=== PATIENT | female | born 1980 | race Caucasian/White ===

== ENCOUNTER → 2018-06-28 09:56 | Outpatient (CLI) | payer MEDICAID, SELFPAY ==
--- NOTE | 2018-06-28 10:00 | US_ITS ---
STUDY: THYROID ULTRASOUND REASON FOR EXAM: Female, 37 years old. Abnormal thyroid screen. TECHNIQUE: Ultrasound evaluation of the thyroid was performed with real-time and static guillen-scale imaging. COMPARISON: None. FINDINGS: RIGHT LOBE: The right lobe of the thyroid gland measures 5.0 x 1.6 x 1.8 cm. There is a heterogeneous echotexture. There is increased vascularity throughout the gland. LEFT LOBE: The left lobe of the thyroid gland measures 5.1 x 1.8 x 1.4 cm. There is a heterogeneous echotexture. There is increased vascularity throughout the gland. ISTHMUS: The isthmus measures 5.0 mm . US/Thyroid IMPRESSION: Enlarged, heterogenous and hypervascular gland suggestive of a history of thyroiditis. Electronically Signed: Michelle Zelaya MD at 16:57 EDT Tel , Service support ,
== END ==
PROVIDERS: Family Provider Family Medicine; PCP Family Medicine; Referring Provider Family Medicine; Visit Provider Family Medicine
DX: R79.89 Other specified abnormal findings of blood chemistry (principal)
CPT/HCPCS: 76536

== ENCOUNTER → 2018-12-10 | Outpatient (CLI) | payer MEDICAID, SELFPAY ==
--- NOTE | 2018-12-10 | IMM_PTH ---
PATIENT: ROSI PINA LOC: [facility] U#:[id number] AGE/SX: 38/F ROOM: RE12/10/[address]: Dr. Nicanor Amaral MD : 1980 BED: DIS: 12/10/2018 SPEC #: [id number] RECD: 12/11/18 12:37 STATUS: MONET REMargareth #: [id number] TAWNYA: 12/10/18 00:[address]: Nicanor Amaral DEPT: IMMUNOHISTOCHEMISTRY RECD BY: Lev Garcia ENTERED: 12/11/18 12:40 SP TYPE: IMMUNO OTHR DR: Tasneem Quevedo PA-C Tissues: Skin of back, NOS Procedures: CD34 (add) DESMIN (add) MART1 (add) Vimentin (add) Smooth Muscle Actin S-100 (add) PHYSICIAN & INSTITUTION [place] [id number] SPECIMEN INFORMATION: Tissue Source: Skin lesion, right upper back Clinical Info: Neoplasm of uncertain behavior of skin D48.5, subcutaneous cyst L72.3 Specimen Number: [id number] CPT code: 18811, 58685 x5 METHODOLOGY: Deparaffinized sections of prefer/formalin-fixed tissue or PAP/DQ stained slides are incubated with monoclonal/polyclonal antibodies/oligonucleotide probes. Localization is made via biotin free immunoperoxidase method. Appropriate controls are performed and reacted as expected. Results on target cell population are indicated in the following table: RESULTS: ANTIBODY / CLONE RESULT Actin (1A4) negative Desmin (CE-R-11) negative MART-1 (A-103) negative Vimentin (V9) positive S-100 (4C4.9) negative CD34 (QBEnd-10) negative These tests were developed and their performance characteristics determined by [facility]. They may not have been cleared or approved by the U.S. Food and Drug Administration. The FDA has determined that such clearance or approval is not necessary. INTERPRETATION: Skin lesion, right upper back biopsy: Dermal fibrins consistent with scar. SJ:monica 12/12/18
--- NOTE | 2018-12-10 09:15 | LES_PTH ---
PATIENT: ROSI PINA LOC: [facility] U#:[id number] AGE/SX: 38/F ROOM: RE12/10/[address]: Dr. Nicanor Amaral MD : 1980 BED: DIS: 12/10/2018 SPEC #: [id number] RECD: 12/10/18 10:05 STATUS: MONET DURAN #: [id number] TAWNYA: 12/10/18 09:[address]: Nicanor Amaral DEPT: SURGICAL PATHOLOGY RECD BY: Gianfranco Huerta ENTERED: 12/10/18 14:18 SP TYPE: Lesion OTHR DR: Tasneem Quevedo PA-C Tissues: Skin of back, NOS Procedures: Surgery Specimen Level IV HEADER OPERATION: Excision sebaceous cyst left upper back and skin lesion right upper back PRE-OP DIAGNOSIS: Neoplasm of uncertain behavior of skin D48.5, subcutaneous cyst L72.3 TISSUE SUBMITTED: Skin lesion, right upper back MICROSCOPIC DIAGNOSIS Skin lesion right upper back, excisional biopsy: Dermal fibrosis consistent with scar. See comment GENESIS:giorgi 12/11/18 COMMENT Change consistent with cyst are not seen. Immunohistochemistry ([id number]) supports the above diagnosis. Case has been reviewed in consultation with Dr. Andrews who concurs with the above diagnosis. IDC:AM MICROSCOPIC DESCRIPTION Slides are reviewed. GROSS DESCRIPTION Received in fixative is one container labeled with the patient's name and designated right upper back. The specimen consists of a christiansen-white skin ellipse measuring 1.3 x 0.5 cm and up to 0.5 cm in thickness. The specimen is inked, serially sectioned and submitted entirely in one cassette. /GENESIS:giorgi 12/10/18 TC: 5 CPT: 20495
[2018-12-10 09:16] VITALS: BMI 23.5
== END | disposition home or self-care (01) ==
LOC: LABSPEC 10:26
PROVIDERS: Family Provider Family Medicine; PCP Family Medicine; Referring Provider Surgery; Visit Provider Surgery
DX: L72.3 Sebaceous cyst (principal); D48.5 Neoplasm of uncertain behavior of skin
CPT/HCPCS: 88305; 88341; 88342

== ENCOUNTER → 2020-01-27 | Outpatient (CLI) | payer MEDICAID, SELFPAY ==
[2018-12-20 08:18] VITALS: BMI 23.5
--- NOTE | 2020-01-27 14:17 | US_ITS ---
STUDY: ULTRASOUND OF THE FEMALE PELVIS - COMPLETE REASON FOR EXAM: Female, 39 years old. MIDLINE AND LEFT PELVIC PAIN LMP: TECHNIQUE: Endovaginal TECHNICAL QUALITY: Adequate. COMPARISON: None. FINDINGS: The uterus is retroverted and is in a midline position. The uterus measures 9.2 x 6.2 x 4.6 cm. Normal uterine cervix. The endometrium measures 12 mm in thickness, and is heterogeneous. There is no demonstrated endometrial mass. There is no demonstrated myometrial mass. I.U.D. - The patient does not have an I.U.D. The right ovary is visualized. The right ovary measures 5.9 x 5.8 x 4.1 cm. There is a 4.9 cm right ovarian cyst. There is normal arterial and normal venous vascularity. The left ovary is visualized. The left ovary measures 3.5 x 2.7 x 2.2 cm. There is no left ovarian cyst or ovarian mass. There is no visualized left adnexal mass or complex lesion. There is normal arterial and normal venous vascularity. There is mild fluid in the cul-de-sac. The pre void volume of the bladder was 713 ml. US/Pelvic (Non ) IMPRESSION: Right ovarian cyst. Retroverted uterus with mild heterogeneous endometrium. Mild free pelvic fluid. Electronically Signed: Brannon Mckeon DO at 18:49 EDT Tel [phone], Service support ,
--- NOTE | 2020-01-27 14:17 | US_ITS ---
STUDY: ULTRASOUND OF THE FEMALE PELVIS - COMPLETE REASON FOR EXAM: Female, 39 years old. MIDLINE AND LEFT PELVIC PAIN LMP: TECHNIQUE: Endovaginal TECHNICAL QUALITY: Adequate. COMPARISON: None. FINDINGS: The uterus is retroverted and is in a midline position. The uterus measures 9.2 x 6.2 x 4.6 cm. Normal uterine cervix. The endometrium measures 12 mm in thickness, and is heterogeneous. There is no demonstrated endometrial mass. There is no demonstrated myometrial mass. I.U.D. - The patient does not have an I.U.D. The right ovary is visualized. The right ovary measures 5.9 x 5.8 x 4.1 cm. There is a 4.9 cm right ovarian cyst. There is normal arterial and normal venous vascularity. The left ovary is visualized. The left ovary measures 3.5 x 2.7 x 2.2 cm. There is no left ovarian cyst or ovarian mass. There is no visualized left adnexal mass or complex lesion. There is normal arterial and normal venous vascularity. There is mild fluid in the cul-de-sac. The pre void volume of the bladder was 713 ml. US/Transvaginal Non- IMPRESSION: Right ovarian cyst. Retroverted uterus with mild heterogeneous endometrium. Mild free pelvic fluid. Electronically Signed: Brannon Mckeon DO at 18:49 EDT Tel [phone], Service support ,
== END | disposition home or self-care (01) ==
LOC: US 14:14
PROVIDERS: PCP Family Medicine; Referring Provider Family Medicine; Visit Provider Family Medicine
DX: R10.2 Pelvic and perineal pain (principal)
CPT/HCPCS: 76830; 76856

== ENCOUNTER 2020-03-02 11:54 | Day surgery (SDC) | payer MEDICAID, SELFPAY ==
[2020-02-11 15:06] VITALS: BMI 25.1
--- NOTE | 2020-03-01 09:54 | EKG12_ITS ---
Test Reason : PRE OP Blood Pressure : / mmHG Vent. Rate : 075 BPM Atrial Rate : 075 BPM P-R Int : 158 ms QRS Dur : 082 ms QT Int : 382 ms P-R-T Axes : 071 065 060 degrees QTc Int : 426 ms Normal sinus rhythm with sinus arrhythmia Normal ECG Confirmed by JASON TRACY, SAMANTHA ([id number]), online editor YURI BOYCE ([id number]) on 03/02/2020 8:35:53 AM Referred By: Екатерина Mauro Confirmed By:SAMANTHA GOMEZ MD
[2020-03-01 11:22] LABS: Hemoglobin 13.8 g/dL (12.0-15.0); Mean Corp Hgb Conc 32.1 g/dL (32-36); Mean Corpuscular Hgb 27.4 pg (27.0-32.0); Mean Corpuscular Volume 85.3 fL (81-99); Mean Platelet Vol. 9.8 fl (6.2-12.0); Platelet Count 254 K/mm3 (150-450); RBC Distribution Width CV 12.8 % (11.6-14.6); RBC Distribution Width SD 39.8 fl (35.1-43.9); Red Blood Count 5.04 M/mm3 (4.2-5.4)
[2020-03-01 11:34] LABS: Prothrombin Time (Protime)PT. 12.5 SECONDS (11.7-14.9)
[2020-03-01 11:35] LABS: Partial Thromboplast Time 26.9 Seconds (24.1-36.2)
[2020-03-02 12:19] VITALS: BP 137/77; PULSE 87; RESP 16; TEMP 37.1; O2SAT 100; BMI 24.7
[2020-03-02] MEDS: Lactated Ringers 1,000 ML 100 ML IV ×2 (12:19→14:46)
[2020-03-02 12:22] LABS: Internal QC Validated? YES +Cl - CLEAR BKGD; Pregnancy, Urine Negative Negative
--- NOTE | 2020-03-02 12:24 | HP.PCM_ITS ---
- Problem List (1) Ovarian cyst Status: Acute History and Physical Date of Admission: 03/02/20 Intake Vital Signs 02/11/20 Height 5 ft 7 in 02/11/20 Weight: 160 lb 6 oz 02/11/20 BMI 25.1 02/11/20 BP 120/90 H Intake Visit Reasons: New: Surgical consult for cyst, ref by Saritha Quevedo Marketing Professional Required: No Is patient in pain?: No Allergies venlafaxine HCl [From Effexor] Adverse Reaction (Verified 02/11/20 15:07) throat swelling Medications Rizatriptan Benzoate [Maxalt] 10 mg PO .X1 PRN 07/07/15 [History Confirmed 02/11/20] Post menopausal: No Patient : No : No PFSH Medical History (Updated 02/11/20 @ 15:08 by Jo-Ann Shaffer) Migraines (Chronic) Constipation (Acute) Diarrhea (Acute) Anemia (Acute) Hx TIA/stroke w/o resid (Acute) Back problem (Acute) Thyroid disease (Acute) Fatigue (Acute) Normal colonoscopy (Acute) Surgical History Hx of removal of cyst (Acute) Hx of oral surgery (Acute) Hx of knee surgery (Acute) Family History Father Hypertension Prostate cancer Mother Hypertension Social History (Updated 02/11/20 @ 16:[address] Екатерина Mauro MD) Smoking Status: Never smoker second hand exposure: No alcohol intake: never substance use type: does not use caffeine: Yes what type of physical activity do you participate in: walking, running, bicycling, weight training frequency: 5-6 times per week seatbelt use: always HPI New: Surgical consult for cyst, ref by Saritha Quevedo: Details: ROSI PINA is a 39 year old who presents for referral for ovarian cyst. Had UTI symptoms and low back pain so PCP ordered ultrasound. Reports urgency and pelvic pressure. Reports one day had sharp cramping pain after exertion and was seen by PCP. Was treated for UTI multiple times before being started. Having nausea and pelvic pressure with urgency daily. ROS Const Constitutional: Denies chills or fever(s) GI GI: Reports bloating and nausea; denies vomiting : Reports frequent nightime urination, pelvic pain, urinary frequency, urinary urgency and vaginal discharge; denies vaginal dryness, vaginal odor or vaginal itching Exam Const General: cooperative, healthy appearing, comfortable, no acute distress, well developed, well groomed Nutritional Appearance: average body habitus, well nourished Orientation: alert, awake, oriented x3 [facility] Head: normal to inspection, normocephalic, atraumatic Eyes Pupils: PERRL, accommodation normal EOM: EOM intact bilaterally Resp Effort & Inspection: normal respiratory effort, able to speak in complete sentences, symmetric chest movement Cardio Rate: regular rate GI Inspection: normal to inspection, non-distended Palpation: soft, no guarding, no masses, not rigid, nontender General: bladder normal to palpation External Female Exam: normal external appearance, normal appearance of the urethra, no erythema, no tenderness externally, no lesions, No lesion of urethra Urethra: normal appearance of the urethra, no lesions Speculum Exam - Vagina: normal appearance of the vagina, normal vaginal discharge, normal vaginal discharge, not erythematous, no lacerations, no lesions, No vaginal bleeding, no masses, no swelling, nontender Speculum Exam - Cervix: normal appearance of the cervix, no cervical discharge, no lesions, no masses, nontender Bimanual Exam- Vagina & Uterus: normal bimanual exam, normal vaginal palpation, uterine size normal, bladder normal to palpation, uterine shape normal, No cervical tenderness, uterine mobility normal, uterine consistency normal, normal cervical palpation, uterus non-tender Bimanual Exam- Adnexa, other: normal adnexae, adnexae mobile, no adnexal masses, pelvic support normal, adnexae non-tender, No cul-de-sac fullness, No cul-de-sac tenderness, No cul-de-sac nodularity, apex supported Pelvic Support: normal, no cystocele, no rectocele, no enterocele, apex supported OB/External & Speculum: No vaginal bleeding Speculum Exam: no vaginal bleeding Neuro General: alert, awake, oriented x3, CN's II-XI intact bilaterally Cranial Nerves: PERRL, accommodation normal, EOM intact bilaterally Cognition: normal cognition Speech: speech normal Gait: normal gait Psych Appearance: grossly normal, well kempt Mental Status: mental status grossly normal Affect: normal affect Speech and Movement: speech and movement normal Attitude: cooperative Thought Process: normal Thought Content: normal Judgment: judgment good Assessment & Plan Problems 1. Cyst of right ovary N83.201 Plan US 01/26 showed: FINDINGS: The uterus is retroverted and is in a midline position. The uterus measures 9.2 x 6.2 x 4.6 cm. Normal uterine cervix. The endometrium measures 12 mm in thickness, and is heterogeneous. There is no demonstrated endometrial mass. There is no demonstrated myometrial mass. I.U.D. - The patient does not have an I.U.D. The right ovary is visualized. The right ovary measures 5.9 x 5.8 x 4.1 cm. There is a 4.9 cm right ovarian cyst. There is normal arterial and normal venous vascularity. The left ovary is visualized. The left ovary measures 3.5 x 2.7 x 2.2 cm. There is no left ovarian cyst or ovarian mass. There is no visualized left adnexal mass or complex lesion. There is normal arterial and normal venous vascularity. Discussed with patient that given size of the cyst and the fact that she is symptomatic, I recommend proceeding with laparoscopy for removal. Discussed that cyst is simple in appearance so I have no concern for malignancy. Recommend proceeding with laparoscopic ovarian cystectomy, possible oophorectomy. Discussed that there is always a possibility of having to remove her ovary at the time of surgery and that there is a chance of not being able to completely remove the entire cyst. Discussed if have to remove ovary, minimal effect on future fertility. The nature of the procedure was discussed with the patient. Risks, benefits, indications, and alternatives to the procedure were discussed with the patient including bleeding, infection, and visceral or vascular injury. Agreeable to blood products if medically necessary. Discussed possibility of infection inside abdomen or at incision sites which could require outpatient or inpatient antibiotics. Discussed the possibility of injury to uterus, tubes, ovaries, bowel, and bladder. Aware that this could require intra-op consult to general surgery or urology. Also aware of the possibility of prolonged hospitalization or reoperation. Discussed possibility of need to convert to open to procedure. All questions were answered. Patient voices understanding and agrees to proceed. Recommend medical clearance by PCP prior to surgery given hx of TBI. UPDATE- I have seen the patient and performed any clinically relevant updates to the history and physical exam. Екатерина Mauro MD
[2020-03-02] MEDS: Bupivacaine Mpf 0.5% 30 ML VIAL (14:01)
[2020-03-02 14:52] VITALS: BP 123/67; BP 137/77; PULSE 63; RESP 16; TEMP 36.1; O2SAT 100
[2020-03-02 15:00] VITALS: BP 106/54; BP 137/77; PULSE 67; RESP 16; O2SAT 100
--- NOTE | 2020-03-02 15:03 | OP.PCM_ITS ---
Problem List (1) Ovarian cyst Status: Acute Report of Operation Date of Procedure: 03/02/20 Pre-Operative Diagnosis: Suspected ovarian cyst, pelvic pain Post-Operative Diagnosis: No evidence of ovarian cyst, endometriosis Surgery/Procedure Performed:: Diagnostic laparoscopy, fulguration of endometriosis Description of Surgical Findings:: Normal-appearing fallopian tubes and ovaries bilaterally. Normal-appearing uterus aside from approximately 1 cm subserosal fibroid on the posterior aspect of the uterus. Endometriosis noted in the posterior cul-de-sac and bilateral ovarian fossa. Type of Anesthesia:: General Specimen's removed: None Estimated Blood Loss (mL): 10 cc Description of Procedure: The patient was taken to the operating room where general anesthesia was obtained without difficulty. She was prepped and draped in the dorsal lithotomy position with yellowfin stirrups. A weighted speculum space in the posterior aspect of the vagina and the anterior lip of the cervix was grasped with a single-tooth tenaculum. The cervix was sequentially dilated using Shai uterine dilators in order to accommodate placement of a ZClearSaleing uterine manipulator. Manipulator was placed without difficulty. A Alcaraz catheter was then placed in the bladder. All other instruments were then removed from the vagina. Gloves were changed and attention was directed to the abdominal cavity. The umbilicus was injected with 10 cc of 0.25% Marcaine. The umbilicus was then grasped with towel clamps and a 5 mm incision was made at the base of the umbilicus. A varies needle was then inserted into abdominal cavity. The abdomen was insufflated to 15 mmHg pressure. A 5 mm trocar was then introduced into the abdominal cavity under direct visualization. A 5 mm accessory ports were then placed in the right and left lower quadrants. Survey of the abdominal cavity showed the above findings. No evidence of ovarian cyst were noted on either ovary. Endometriosis implants were then noted in the posterior cul-de-sac and on the ovarian fossa bilaterally. Monopolar cautery was used to cauterize these lesions. The procedure was then deemed complete. All instruments removed from the abdominal cavity. The port sites were then closed using 4-0 Monocryl suture in a simple interrupted fashion. Dressings were placed. All instruments were then removed from the vagina. All counts were correct x2. The patient was taken to the recovery room in stable condition. - Complications None apparent - Admit VTE Documentation VTE Present on Admission: No VTE Mechan Device Prophylaxis: SCD's VTE Pharm Prophylaxis ordered?: No Multi Select Codes - Urinary/Genital Urinary/Genital CPT Codes: 93568 Laparoscopic fulguration tubes
--- NOTE | 2020-03-02 15:09 | DCINST_ITS ---
- Discharge Diagnoses Current Active Problems: Current Active and Chronic Problems (Last Updated 02/11/20 @ 15:08 by Jo-Ann Shaffer) Ovarian cyst (Acute) Reason(s) for Visit for Discharge Instructions: Diagnostic laparoscopy You will use the following diet at home:: No restrictions Discharge Activity: May not drive while taking narcotic pain medications., May Shower May resume sexual activity in: 1-2 weeks Weight Bearing Status: Weight bearing as tolerated Call your doctor if your incision/area has: Continuous Slow Oozing, Sudden Increased Bleeding, Increased Pain/ Swelling, Increased Redness, Foul Smelling Discharge, Swelling at the incision site Call your doctor if you observe: Fever of 101 or Higher, Inability to urinate, Using more than one pad per hour, Shortness of breath, Dizziness, Chest pain, Uncontrolled pain Suture Line Care: Avoid Pulling/Pushing Cleanse incision/area with: Soap & Water Allergies/Adverse Reactions: Allergies venlafaxine HCl [From Effexor] Allergy (Verified 03/02/20 12:18) throat swelling Medications to take at Discharge Rizatriptan Benzoate [Maxalt] 10 mg PO .X1 PRN PRN 07/07/15 Ferrous Sulfate [Iron] 325 mg PO DAILY 02/23/20 L.acidoph,Paracasei, B.lactis [Probiotic] 1 ea PO DAILY 02/23/20 Magnesium 250 mg PO DAILY 02/23/20 Multivitamin 1 ea PO DAILY 02/23/20 [place]-3/Dha/Epa/Fish Oil [Fish Oil 1,000 mg Softgel] 1 ea PO DAILY 02/23/20 Ibuprofen [Motrin] 600 mg PO Q6H PRN PRN #30 tab 03/02/20 Oxycodone [Oxyir] 5 mg PO Q6H PRN PRN 7 Days #10 tab 03/02/20 The following prescriptions were given: Ibuprofen [Motrin] 600 mg PO Q6H PRN PRN #30 tab PRN Reason: Pain Transmission Status: Received by [facility] Oxycodone [Oxyir] 5 mg PO Q6H PRN PRN 7 Days #10 tab PRN Reason: Pain Score 6-10/10 Transmission Status: Received by [facility] Primary Care Physician: Tasneem Quevedo PA-C [Primary Care Provider] - Test Results: Test results from this visit will be discussed in further detail at your follow- up appointment, if applicable. Please Follow Up With: Екатерина Mauro MD
[2020-03-02 15:15] VITALS: BP 117/62; BP 137/77; PULSE 57; RESP 16; O2SAT 100
[2020-03-02 15:30] VITALS: BP 115/65; BP 137/77; PULSE 54; RESP 16; TEMP 36.3; O2SAT 100
[2020-03-02] MEDS: HYDROcodone Bitartrate/Apap 5/325 Tablet PO (16:21)
[2020-03-02 17:00] VITALS: BP 118/65; BP 137/77; PULSE 63; RESP 16; TEMP 36.3; O2SAT 100
== END 2020-03-02 17:05 | disposition home or self-care (01) ==
LOC: SDC 11:55 → AC 11:55
PROVIDERS: Anesthesiology; PCP Family Medicine; Referring Provider Obstetrics & Gynecology; Visit Provider Obstetrics & Gynecology
PROC: (CPT 58661; principal; 2020-03-02 13:20)
DX: N80.0 Endometriosis of uterus (principal); D64.9 Anemia, unspecified; Z86.73 Personal history of transient ischemic attack (TIA), and cerebral infarction without residual deficits; Z87.440 Personal history of urinary (tract) infections
CPT/HCPCS: 00840; 58662; 36415; 81025; 85027; 85610; 85730; 86850; 86900; 86901; 87426; 93005; C9803; J7120; J2405

== ENCOUNTER → 2020-08-25 11:32 | Outpatient (CLI) | payer MEDICAID, SELFPAY ==
[2020-03-17 08:13] VITALS: BMI 25.1
--- NOTE | 2020-08-25 11:33 | US_ITS ---
STUDY: THYROID ULTRASOUND REASON FOR EXAM: Female, 39 years old. THYROIDITIS TECHNIQUE: Ultrasound evaluation of the thyroid was performed with real-time and static guillen-scale imaging. COMPARISON: 06/28/2018. FINDINGS: RIGHT LOBE: The right lobe of the thyroid gland measures 5.7 x 2.3 x 1.5 cm. There is a heterogeneous echotexture. 1.7 x 1.0 x 0.5 cm hypoechoic solid nodule right lower gland. LEFT LOBE: The left lobe of the thyroid gland measures 5.2 x 1.7 x 1.0 cm. There is a heterogeneous echotexture. 1.1 x 1.0 x 0.5 cm hypoechoic solid nodule lateral gland. ISTHMUS: The isthmus measures 4 mm . The regional lymph nodes are normal. US/Thyroid IMPRESSION: Heterogeneous multinodular goiter. Solid nodules are identified bilaterally measuring up to 17 mm right and 11 mm left. The right thyroid gland qualifies for tissue sampling at this has not previously been done. Electronically Signed: Robbin Garcia MD at 12:26 EDT Tel , Service support ,
== END ==
PROVIDERS: PCP Family Medicine; Referring Provider Family Medicine; Visit Provider Family Medicine
DX: E06.9 Thyroiditis, unspecified (principal)
CPT/HCPCS: 76536

== ENCOUNTER → 2020-09-15 11:31 | Outpatient (CLI) | payer MEDICAID, SELFPAY ==
[2020-03-17 08:13] VITALS: BMI 25.1
--- NOTE | 2020-09-15 | ASPIG_PTH ---
PATIENT: ROSI PINA LOC: [facility]#:[id number] AGE/SX: 44/F ROOM: RE09/15/[address]: Dr. Juvenal Carlson MD : 1980 BED: DIS: SPEC #: [id number] RECD: 09/15/20 12:28 STATUS: MONET DURAN #: [id number] TAWNYA: 09/15/20 00:[address]: Juvenal Carlson DEPT: CYTOLOGY RECD BY: Lev Garcia ENTERED: 09/15/20 12:29 SP TYPE: ASP OUT OTHR DR: Tasneem Quevedo PA-C Tissues: Thyroid gland, NOS Procedures: FNA Specimen Adequacy Special Stain Group II Surgery Specimen Level IV Cytology Other HEADER OPERATION: Ultrasound-guided fine needle aspiration of right thyroid PRE-OP DIAGNOSIS: Nodule TISSUE SUBMITTED: Right thyroid DIAGNOSIS CYTOLOGY Right thyroid nodule, ultrasound-guided FNA (smears and cell block): Consistent with chronic lymphocytic thyroiditis. Adequate for evaluation. See comment. GENESIS:amna 09/16/2020 COMMENT The specimen is evaluated at the time of FNA by Dr. Estevez. Immediate Evaluation = Predominantly lymphocytes and a few follicular cells noted. Adequate for evaluation. Correlation with clinical, radiologic findings and appropriate follow up are necessary. CYTOLOGY STUDY Slides are reviewed. CYTOLOGY GROSS Received in four passes is 0.5 ml of bloody fluid labeled with the patient's name, and designated right thyroid. Five imprints and four paps are made from the submitted fluid and the rest is added to CytoLyt for cell block preparation. Submitted for cytology study. / GENESIS:amna 09/15/2020 TC:5 CPT: 36286, 98626, 83737
--- NOTE | 2020-09-15 11:32 | US_ITS ---
PROCEDURE: ULTRASOUND GUIDED RIGHT THYROID FNA/BIOPSY. DATE: 09/15/2020. INDICATION: Female, 39 years old. Right thyroid nodule. PHYSICIAN: Albino Zheng M.D. MEDICATIONS: 2% lidocaine administered subcutaneously for local anesthesia. ACCESS SITE: Right - anterior approach. NEEDLE: 25-gauge FNA needle. SPECIMEN: Multiple FNA specimen collected and given to pathology. EBL: None. COMPLICATIONS: None immediate. PROCEDURE: The risks, benefits, and alternatives to the procedure were explained to the patient. The specific risk of hemorrhage requiring further treatment or intervention was detailed and accepted. Written informed consent was obtained. The patient was brought into the ultrasound room and placed in the supine position on the stretcher. An appropriate entry site was identified. The overlying skin was prepped and draped in the usual sterile fashion. 2% lidocaine was administered subcutaneously for local anesthesia. Under ultrasound guidance, a 25-gauge FNA needle was advanced into the lesion. Aspiration was performed and the needle was withdrawn. A total of 4 passes were performed with specimen collected and given to the pathologist who was present during the procedure. Hemostasis was achieved with manual compression. Repeat ultrasound images of the biopsy area was performed which demonstrated no gross bleeding or hematoma. An antibiotic ointment dressing was placed and the patient was given an icepack. The patient tolerated the procedure well without immediate complications. The patient was discharged in stable condition. US/FNA 1st Biopsy w/ US IMPRESSION: Successful ultrasound-guided 4 thyroid nodule FNA/biopsy, as described above. Electronically Signed: Albino Zheng MD at 12:59 EDT , Service support ,
== END ==
PROVIDERS: PCP Family Medicine; Referring Provider Otolaryngology; Visit Provider Otolaryngology
DX: E04.2 Nontoxic multinodular goiter (principal)
CPT/HCPCS: 10005; 88161; 88172; 88305; 88313

== ENCOUNTER → 2021-12-07 | Outpatient (CLI) | payer MEDICAID, SELFPAY ==
--- NOTE | 2021-12-07 15:37 | US_ITS ---
STUDY: THYROID ULTRASOUND REASON FOR EXAM: Female, 41 years old. RADHA''S TECHNIQUE: Ultrasound evaluation of the thyroid was performed with real-time and static guillen-scale imaging. COMPARISON: None. FINDINGS: RIGHT LOBE: The right lobe of the thyroid gland measures 5.7 x 2.2 x 1.8 cm. There is a diffusely heterogeneous echotexture. There is a solid nodule in the upper pole measuring 2.1 x 1.2 x 0.6 cm demonstrating irregular margins and intranodular vascularity. There is a second smaller nodule measuring 8 x 6 x 4 mm LEFT LOBE: The left lobe of the thyroid gland measures 5.1 x 1.6 x 1.2 cm. There is a diffusely heterogeneous echotexture. Small solid nodule in the upper pole with regular margins with linnea-nodular and intralobular nodular vascularity measuring approximately 1.1 x 1.3 x 0.7 cm. ISTHMUS: The isthmus measures 4 mm . The regional lymph nodes are normal. There is minimal increase in size of the nodules bilaterally since prior study US/Thyroid IMPRESSION: Heterogeneous multinodular goiter with minimal increase in size of nodules bilaterally of uncertain significance... Clinical correlation recommended Electronically Signed: Chai Vivas MD at 16:34 EDT ,
[2021-12-07 17:42] LABS: Thyroid Stim Hormone (TSH) 1.75 uIU/mL (0.358-3.74)
== END | disposition home or self-care (01) ==
LOC: US 15:17
PROVIDERS: PCP Family Medicine; Referring Provider Otolaryngology; Visit Provider Otolaryngology
DX: E06.3 Autoimmune thyroiditis (principal)
CPT/HCPCS: 36415; 76536; 84443

== ENCOUNTER → 2022-05-15 | Outpatient (CLI) | payer MEDICAID, SELFPAY ==
[2022-05-15 18:04] LABS: T4 Free Direct 1.26 ng/dL (0.76-1.46); Thyroid Stim Hormone (TSH) 0.33 uIU/mL (0.358-3.74)
== END | disposition home or self-care (01) ==
LOC: LAB 16:11
PROVIDERS: PCP Family Medicine; Visit Provider Internal Medicine Endocrinology, Diabetes & Metabolism
DX: E06.3 Autoimmune thyroiditis (principal)
CPT/HCPCS: 36415; 84439; 84443

== ENCOUNTER 2022-09-05 08:46 | Emergency (ER) | payer MEDICAID, SELFPAY ==
[2022-09-05 08:46] VITALS: BP 139/93; PULSE 87; RESP 18; TEMP 35.7; O2SAT 100; BMI 25.5
--- NOTE | 2022-09-05 09:12 | ED.VIS.GI ---
HPI HPI - GI History of Present Illness Chief Complaint: Abd Pain Informant: patient Abdominal Pain/Flank Pain Onset: Month(s) (2) Context: Gradual Onset Timing: Continuous Quality: Aching, Cramping and Dull Location: Epigastric, RUQ, LUQ and LLQ Worsened by: Food Relieved by: - (Heating pad, stretching, not eating) Nausea/Vomiting/Emesis GI Symptom: Positive for Nausea; Negative for Vomiting Diarrhea/Melena/Hematochezia GI Symptom: Positive for Diarrhea; Negative for Melena or Hematochezia Onset: Month(s) Stool Quality: Positive for Loose Narrative Narrative: Patient presents with abdominal pain that has been constant for the last 2 months but has gotten worse over the past week and a half. Patient states it is gradually gotten worse. Patient describes her pain as aching, dull, and cramping at times. Patient states her pain is over the upper abdomen and left lower abdomen. Patient states it is worse whenever she eats anything. Patient states it is better with a heating pad and with stretching. Patient admits to nausea but denies any vomiting. Patient admits to some diarrhea but denies any melena or hematochezia. Patient states her diarrhea is loose and watery. Patient admits to some urinary frequency but denies any dysuria or hematuria. [facility] Medical History Adrenal disorder Anemia Back problem Constipation Diarrhea Fatigue Christoph's thyroiditis Hx TIA/stroke w/o resid Migraines Nodular goiter Normal colonoscopy TBI (traumatic brain injury) Thyroid disease Home Medications L.acidoph, paracasei,B. lactis 10 billion cell capsule 1 ea PO DAILY supplement 02/23/20 [History Last Taken Unknown] ferrous sulfate 325 mg (65 mg iron) tablet 325 mg PO DAILY supplement 02/23/20 [History Last Taken Unknown] magnesium 250 mg tablet 250 mg PO DAILY supplement 02/23/20 [History Last Taken Unknown] multivitamin 1 ea PO DAILY supplement 02/23/20 [History Last Taken Unknown] omega 6-bfq-smp-fish oil 300 mg-1,000 mg capsule 1 ea PO DAILY supplement 02/23/20 [History Last Taken Unknown] ibuprofen 600 mg tablet 600 mg PO Q6H PRN PRN Pain #30 tabs 03/02/20 [Rx Last Taken Unknown] levothyroxine 88 mcg tablet 88 mcg PO DAILY #90 tabs 03/14/22 [Rx Last Taken Unknown] rizatriptan 10 mg tablet 5 mg PO .X1 PRN PRN Migraine Symptoms 03/14/22 [History Last Taken Unknown] omeprazole 20 mg capsule,delayed release 20 mg PO DAILY #30 CAPSULES 09/05/22 [Rx Last Taken Unknown] ondansetron 4 mg disintegrating tablet 4 mg PO Q8H PRN PRN Nausea #10 tabs 09/05/22 [Rx Last Taken Unknown] Allergy/AdvReac Type Severity Reaction Status Date / Time venlafaxine HCl Allergy throat Verified 05/03/22 08:22 [From Effexor] swelling Family History Father Hypertension Prostate cancer Mother Hypertension Other Anesthesia complication Anxiety Autoimmune disorder Depression Surgical History Hx of knee surgery Hx of oral surgery Hx of removal of cyst S/P laparoscopic procedure Social History Smoking Status: Never smoker second hand exposure: No alcohol intake: never substance use type: does not use caffeine: Yes what type of physical activity do you participate in: walking, running, bicycling and weight training frequency: 5-6 times per week seatbelt use: always ROS ROS ED Constitutional Constitutional ED: Denies chills or fever(s) Eyes Eyes: Denies blurry vision or change in vision ENT ENT ED: Denies rhinorrhea or sore throat Cardiovascular Cardiovascular: Denies chest pain or palpitations Respiratory/Chest Respiratory/Chest: Denies cough or dyspnea Gastrointestinal Gastrointestinal: Reports abdominal pain, diarrhea and nausea; Denies melena or vomiting Genitourinary Genitourinary ED: Reports urinary frequency; Denies dysuria or hematuria Musculoskeletal Musculoskeletal: Reports back pain; Denies neck pain Integumentary Denies abscess or rash Neurologic Neurologic: Reports headache(s); Denies weakness Allergic/Immunologic Allergic/Immunologic ED: Denies mouth swelling or urticaria EXAM Physical Exam Const Vital Signs: 09/05/22 08:46 Temperature 96.2 F L Temperature Source Temporal Pulse Rate 87 Respiratory Rate 18 Blood Pressure 139/93 H Blood Pressure Mean 108 Pulse Ox 100 Oxygen Delivery Method Room Air Positive well nourished and well developed General Appearance ED: well developed HEENT Reports moist mucous membranes Neck supple and no JVD Resp normal respiratory effort and clear to auscultation bilaterally Cardio regular rate, regular rhythm and no murmurs GI normal to inspection, nondistended, normoactive bowel sounds Palpation: soft and tender epigastric, LLQ, LUQ and RUQ; Negative for guarding or rebound tenderness present Back/Spine no CVA tenderness Extremity normal to inspection General Extremety ED: Negative for edema or tenderness General Extremity: Negative for edema Neuro oriented x3, CN's II-XII intact bilaterally and no sensory deficits noted Sensorium / Orientation: alert Motor Exam: strength 5/5 throughout Psych mental status grossly normal Skin no rashes or lesions noted MDM MDM MDM Narrative Medical decision making narrative: Differential diagnosis includes gastritis, peptic ulcer disease, duodenal ulcer, pancreatitis, colitis, IBS, urinary tract infection, and gastroenteritis. CBC will be obtained to assess for leukocytosis and anemia. Comprehensive metabolic profile will be obtained to assess for electrolyte abnormality, renal function, and hepatic function. Lipase will be obtained to assess for pancreatitis. Urinalysis will be obtained to assess for urinary tract infection. Serum hCG will be obtained to assess for . Lab Data Attestation: I reviewed the patient's lab results. Lab results narrative: CBC was reviewed. There is a mild anemia with a hemoglobin of 11.3 and hematocrit 36.9. Platelets were normal. White blood cell count is normal. Comprehensive metabolic profile was reviewed and was essentially within normal limits. Lipase was reviewed and was normal. Serum hCG was reviewed and was negative. Urinalysis was reviewed. There is no evidence of urinary tract infection or hematuria. Labs: Laboratory Results - last 24 hr 09/05/22 09/05/22 09/05/22 09:23 09:23 09:23 WBC 4.8 RBC 4.70 Hgb 11.3 L Hct 36.9 L MCV 78.5 L MCH 24.0 L MCHC 30.6 L RDW Std Deviation 42.5 RDW Coeff of Evaristo 14.8 H Plt Count 261 MPV 10.1 Immature Gran % (Auto) 0.200 Neut % (Auto) 70.5 H Lymph % (Auto) 18.6 L Galax % (Auto) 8.9 Eos % (Auto) 1.0 Baso % (Auto) 0.8 Absolute Neuts (auto) 3.4 Absolute Lymphs (auto) 0.90 Nucleated RBC % 0 Sodium 137 Potassium 3.3 L Chloride 104 Carbon Dioxide 25.0 Anion Gap 8 BUN 9 Creatinine 0.68 Estim Creat Clear Calc 108.01 Est GFR (MDRD) Af Amer 124 Est GFR (MDRD) Non-Af 102 BUN/Creatinine Ratio 13.3 Glucose 105 Calcium 9.2 Total Bilirubin 0.50 AST 14 L ALT 23 Alkaline Phosphatase 41 L Total Protein 7.2 Albumin 4.0 Globulin 3.2 Albumin/Globulin Ratio 1.2 Lipase 27 Serum , Qual NEGATIVE Urine Color Urine Clarity Urine pH Ur Specific [place] Urine Protein Urine Glucose (UA) Urine Ketones Urine Occult Blood Urine Nitrite Urine Bilirubin Urine Urobilinogen Ur Leukocyte Esterase Urine RBC Urine WBC Ur Squamous Epith Cells Urine Bacteria Urine Mucus 09/05/22 09:25 WBC RBC Hgb Hct MCV MCH MCHC RDW Std Deviation RDW Coeff of Evaristo Plt Count MPV Immature Gran % (Auto) Neut % (Auto) Lymph % (Auto) Galax % (Auto) Eos % (Auto) Baso % (Auto) Absolute Neuts (auto) Absolute Lymphs (auto) Nucleated RBC % Sodium Potassium Chloride Carbon Dioxide Anion Gap BUN Creatinine Estim Creat Clear Calc Est GFR (MDRD) Af Amer Est GFR (MDRD) Non-Af BUN/Creatinine Ratio Glucose Calcium Total Bilirubin AST ALT Alkaline Phosphatase Total Protein Albumin Globulin Albumin/Globulin Ratio Lipase Serum , Qual Urine Color Straw Urine Clarity Sl. Cloudy Urine pH 7.0 Ur Specific [place] 1.005 Urine Protein Negative Urine Glucose (UA) Normal Urine Ketones Negative Urine Occult Blood Negative Urine Nitrite Negative Urine Bilirubin Negative Urine Urobilinogen Normal Ur Leukocyte Esterase Negative Urine RBC 0 SEEN Urine WBC 0-5 SEEN Ur Squamous Epith Cells 0-5 SEEN Urine Bacteria 2+ Urine Mucus 0 SEEN Treatment and Re-Evaluation :: Patient was given IV fluids, Zofran, and Bentyl. Patient is feeling somewhat better on reevaluation. Patient was given prescription for Zofran and omeprazole. Patient was instructed to follow-up with her primary care physician in 5 to 7 days for further evaluation. Patient was advised she may need to see gastroenterology for further evaluation as well. Patient was instructed to start with a bland diet and advance as tolerated. Patient understood and was agreeable with the plan. All questions were answered. Discharge Plan Triage Chief Complaint: Abd Pain ED Provider: Juvenal Gardner Dx/Rx/DC Orders Clinical Impression: Abdominal pain, Christoph's thyroiditis Instructions: ED Abdominal Pain Unkn Cause Fem Prescriptions: New omeprazole [omeprazole] 20 mg capsule,delayed release(DR/EC) 20 mg PO DAILY Qty: 30 0RF ondansetron [ondansetron] 4 mg tablet,disintegrating 4 mg PO Q8H PRN PRN (Reason: Nausea) Qty: 10 0RF No Action levothyroxine 88 mcg tablet 88 mcg PO DAILY Qty: 90 3RF rizatriptan 10 mg tablet 5 mg PO .X1 PRN PRN (Reason: Migraine Symptoms) multivitamin 1 EACH tablet 1 ea PO DAILY ferrous sulfate 325 MG tablet 325 mg PO DAILY magnesium 250 MG tablet 250 mg PO DAILY omega 3-nfl-mju-fish oil 1 EACH capsule 1 ea PO DAILY L.acidoph, paracasei,B. lactis 1 EACH capsule 1 ea PO DAILY ibuprofen 600 MG tablet 600 mg PO Q6H PRN PRN (Reason: Pain) Qty: 30 0RF Primary Care Provider: Tasneem Quevedo Referrals: Tasneem Quevedo, PA-C [Primary Care Provider] - 5-7 Days Disposition Disposition: Home, Self Care
[2022-09-05 09:42] LABS: Mucous, Urine 0 SEEN /hpf (<or=2+); Red Blood Cells-Urine 0 SEEN /hpf (0-5)
[2022-09-05 09:50] LABS: Absolute Neutrophil Count 3.4 X10^3/uL (2.0-7.7); Basophil# 0.04 X10^3/uL; Basophil% 0.8 % (0-1); Eosinophil# 0.05 X10^3/uL; Hematocrit 36.9 % (37-47); Hemoglobin 11.3 g/dL (12.0-15.0); Lymphocyte % 18.6 % (19-41); Mean Corp Hgb Conc 30.6 g/dL (32-36); Mean Corpuscular Volume 78.5 fL (81-99); Mean Platelet Vol. 10.1 fl (6.2-12.0); Monocyte# 0.43 X10^3/uL; Monocyte% 8.9 % (0-10); NRBC Flagged by Analyzer 0 % (0-5); Neutrophil % 70.5 % (47-70); Platelet Count 261 K/mm3 (150-450); RBC Distribution Width CV 14.8 % (11.6-14.6); RBC Distribution Width SD 42.5 fl (35.1-43.9); White Blood Count 4.8 K/mm3 (4.4-11.0)
[2022-09-05 09:56] LABS: Color, Urine Straw (Yellow); Glucose, Dipstick Normal (Normal); Ketone-Dipstick Negative (Negative); Leukocyte Esterase-Dipstick Negative /ul (Negative); Nitrite-Dipstick Negative (Negative); Occult Blood-Urine Negative /ul (Negative); Protein-Dipstick Negative (Negative); Specific Gravity, Urine 1.005 (1.002-1.030); Urine Bilirubin Dipstick Negative (Negative); Urine Clarity Sl. Cloudy (Clear); Urine Urobilinogen Normal (Normal)
[2022-09-05] MEDS: 0.9% Normal Saline 1,000 ML 1000 ML IV (10:09)
[2022-09-05] MEDS: Ondansetron 4 MG/2 ML Vial IV (10:10)
[2022-09-05] MEDS: Dicyclomine 20 MG/2 ML Vial IM (10:10)
[2022-09-05 10:12] LABS: Internal QC Validated? YES +Cl - CLEAR BKGD; Pregnancy, Serum, hCG Quali. NEGATIVE Negative
[2022-09-05 10:13] LABS: ALB/GLOB Ratio 1.2 RATIO (0.9-2.4); AST(SGOT) 14 U/L (15-37); Alanine Aminotransfer ALT/SGPT 23 U/L (13-56); Alkaline Phosphatase 41 U/L (45-117); Anion Gap 8 (5-15); BUN 9 mg/dL (7-18); BUN/Creat Ratio 13.3 RATIO (10-20); Calcium,Total 9.2 mg/dL (8.5-10.1); Chloride 104 mmol/L (98-107); Creatinine, Serum 0.68 mg/dL (0.55-1.02); EST Glomerular Filtration Rate 102 mL/min (>60); Est Glom Filt Rate - Afr Amer 124 mL/min (>60); Estimated Creatinine Clearance 108.01 ml/min; Globulin 3.2 g/dL (2.2-4.2); Glucose 105 mg/dL (74-106); Lipase 27 U/L (13-75); Potassium 3.3 mmol/L (3.5-5.1); Protein, Total 7.2 g/dL (6.4-8.2); Sodium Level 137 mmol/L (136-145)
[2022-09-05 10:16] LABS: Squamous Epithelial Cells - UA 0-5 SEEN /hpf (5-10)
[2022-09-05 10:17] LABS: Bacteria 2+ /hpf (None Seen); White Blood Cells 0-5 SEEN /hpf (0-5)
[2022-09-05 11:08] VITALS: PULSE 63; RESP 16; O2SAT 100
== END 2022-09-05 11:08 | disposition home or self-care (01) ==
PROVIDERS: Emergency Provider Emergency Medicine; PCP Family Medicine; Visit Provider Emergency Medicine
DX: E06.3 Autoimmune thyroiditis (principal); R10.9 Unspecified abdominal pain; R35.0 Frequency of micturition; R19.7 Diarrhea, unspecified; R11.2 Nausea with vomiting, unspecified; R51.9 Headache, unspecified
CPT/HCPCS: 80053; 81001; 83690; 84703; 85025; 96361; 96372; 96374; 99283; J7030; J2405

== ENCOUNTER → 2022-09-21 | Outpatient (CLI) | payer MEDICAID, SELFPAY ==
--- NOTE | 2022-09-21 16:50 | US_ITS ---
STUDY: THYROID ULTRASOUND REASON FOR EXAM: Female, 41 years old. follow up nodule size TECHNIQUE: Ultrasound evaluation of the thyroid was performed with real-time and static guillen-scale imaging. COMPARISON: 12/07/2021 FINDINGS: RIGHT LOBE: The right lobe of the thyroid gland measures 5.9 x 1.7 x 1.7 cm. There is a heterogeneous echotexture. Nodule 1: Shrinking (16 x 6 x 12 mm from 20 x 6 x 12 mm) solid hypoechoic wider than tall ill-defined margin nodule with no echogenic foci (TR 4) in the anterior right lobe for which ultrasound-guided biopsy is recommended. Nodule 2: No change in the 7 x 4 x 5 mm solid hypoechoic wider than tall smoothly marginated nodule with no echogenic foci (TR 4) in the mid right lobe consistent with an adenoma. LEFT LOBE: The left lobe of the thyroid gland measures 5.4 x 1.5 x 1.4 cm. There is a heterogeneous echotexture. Nodule 3: No change in the 10 x 5 x 8 mm solid hypoechoic wider than tall smoothly marginated nodule with no echogenic foci (TR 4) in the anterior left lobe and follow-up ultrasound is recommended in one year. ISTHMUS: The isthmus measures 5 mm thick. . The regional lymph nodes are normal. US/Thyroid IMPRESSION: Thyroiditis with improved dominant nodule in the right lobe for which ultrasound-guided biopsy is recommended. Follow-up ultrasound is recommended in one year. Electronically Signed: Giancarlo Amaral MD at 9:30 EDT ,
== END | disposition home or self-care (01) ==
LOC: US 16:49
PROVIDERS: PCP Family Medicine; Referring Provider Internal Medicine Endocrinology, Diabetes & Metabolism; Visit Provider Internal Medicine Endocrinology, Diabetes & Metabolism
DX: E04.9 Nontoxic goiter, unspecified (principal)
CPT/HCPCS: 76536

== ENCOUNTER → 2023-02-22 | Outpatient (CLI) | payer MEDICAID, SELFPAY ==
[2023-02-22 14:01] LABS: T4 Free Direct 1.07 ng/dL (0.76-1.46); Thyroid Stim Hormone (TSH) 1.09 uIU/mL (0.358-3.74)
== END | disposition home or self-care (01) ==
LOC: LAB 13:19
PROVIDERS: PCP Family Medicine; Referring Provider Internal Medicine Endocrinology, Diabetes & Metabolism; Visit Provider Internal Medicine Endocrinology, Diabetes & Metabolism
DX: E06.3 Autoimmune thyroiditis (principal); E04.9 Nontoxic goiter, unspecified
CPT/HCPCS: 36415; 84439; 84443

== ENCOUNTER → 2023-03-01 | Outpatient (CLI) | payer MEDICAID, SELFPAY ==
--- NOTE | 2023-03-01 16:19 | US_ITS ---
STUDY: THYROID ULTRASOUND REASON FOR EXAM: Female, 42 years old. Compare nodule with us November 2021 TECHNIQUE: Ultrasound evaluation of the thyroid was performed with real-time and static guillen-scale imaging. COMPARISON: Comparison is made with prior study dated December 07, 2021 and September 21, 2022. FINDINGS: RIGHT LOBE: The right lobe of the thyroid gland is enlarged and measures 5.9 cm x 1.7 cm x 1.7 cm. There is a heterogeneous echotexture. A 1.3 cm x 1.2 cm x 0.5 cm hypoechoic solid nodule in the upper pole. Adjacent to this, there is a 6 mm x 6 mm x 4 mm hypoechoic solid nodule. There is evidence of the linnea nodular and internodular vascular territory. LEFT LOBE: The left lobe of the thyroid gland is enlarged and measures 5.5 cm x 1.6 x 1.4 cm. There is a heterogeneous echotexture. There is a 1.1 signed by 0.9 cm x 0.4 cm solid nodule in the upper pole of the thyroid. This is unchanged. ISTHMUS: The isthmus measures 4 mm. The regional lymph nodes are normal. US/Thyroid IMPRESSION: Thyromegaly. Stable appearance of the previously seen nodules in both lobes of the thyroid gland. Electronically Signed: Albino Zheng MD at 9:26 EST ,
== END | disposition home or self-care (01) ==
LOC: US 16:17
PROVIDERS: PCP Family Medicine; Referring Provider Internal Medicine Endocrinology, Diabetes & Metabolism; Visit Provider Internal Medicine Endocrinology, Diabetes & Metabolism
DX: E06.3 Autoimmune thyroiditis (principal); E04.9 Nontoxic goiter, unspecified
CPT/HCPCS: 76536

== ENCOUNTER → 2023-08-06 | Outpatient (CLI) | payer MEDICAID, SELFPAY ==
[2023-08-06 08:40] LABS: Absolute Lymphocyte Count 1.06 X10^3/uL (0.83-4.51); Absolute Neutrophil Count 5.5 X10^3/uL (2.0-7.7); Basophil# 0.04 X10^3/uL; Basophil% 0.6 % (0-1); Eosinophil# 0.15 X10^3/uL; Eosinophils% 2.1 % (0-5); Hematocrit 39.2 % (37-47); Hemoglobin 12.7 g/dL (12.0-15.0); Lymphocyte # 1.06 X10^3/ul (0.83-4.51); Lymphocyte % 14.8 % (19-41); Mean Corp Hgb Conc 32.4 g/dL (32-36); Mean Corpuscular Hgb 26.2 pg (27.0-32.0); Mean Platelet Vol. 9.7 fl (6.2-12.0); Monocyte# 0.38 X10^3/uL; Monocyte% 5.3 % (0-10); NRBC Flagged by Analyzer 0 % (0-5); Neutrophil # 5.54 X10^3/uL (2.7-7.7); Neutrophil % 77.1 % (47-70); Platelet Count 243 K/mm3 (150-450); RBC Distribution Width CV 13.7 % (11.6-14.6); RBC Distribution Width SD 40.6 fl (35.1-43.9); Red Blood Count 4.84 M/mm3 (4.2-5.4); White Blood Count 7.2 K/mm3 (4.4-11.0)
[2023-08-06 09:13] LABS: Vitamin B12 1161 pg/mL (211-911); Vitamin D,25 Hydroxy 59.8 ng/mL
[2023-08-06 09:21] LABS: ALB/GLOB Ratio 1.1 RATIO (0.9-2.4); AST(SGOT) 14 U/L (15-37); Alanine Aminotransfer ALT/SGPT 21 U/L (13-56); Albumin, Serum 3.8 g/dL (3.2-5.0); Alkaline Phosphatase 58 U/L (45-117); Anion Gap 5 (5-15); BUN 14 mg/dL (7-18); BUN/Creat Ratio 21.9 RATIO (10-20); Calcium,Total 8.7 mg/dL (8.5-10.1); Chloride 108 mmol/L (98-107); Creatinine, Serum 0.64 mg/dL (0.55-1.02); EST Glomerular Filtration Rate 109 mL/min (>60); Est Glom Filt Rate - Afr Amer 132 mL/min (>60); Free T3 2.4 pg/mL (2.18-3.98); Globulin 3.5 g/dL (2.2-4.2); Glucose 97 mg/dL (74-106); Iron 42 ug/dL (50-170); Iron Binding Capacity,Total 322 ug/dL (250-450); Potassium 3.5 mmol/L (3.5-5.1); Protein, Total 7.3 g/dL (6.4-8.2); Sodium Level 140 mmol/L (136-145); T4 Free Direct 1.11 ng/dL (0.76-1.46); Thyroid Stim Hormone (TSH) 1.77 uIU/mL (0.358-3.74)
[2023-08-07 17:12] LABS: Thyroglobulin Antibody 2.7 IU/mL (0.0-0.9)
== END | disposition home or self-care (01) ==
LOC: LAB.FUTURE 08:01 → LAB 08:03
PROVIDERS: PCP Family Medicine; Referring Provider Internal Medicine Endocrinology, Diabetes & Metabolism; Visit Provider Family Medicine
DX: R53.82 Chronic fatigue, unspecified (principal); R76.8 Other specified abnormal immunological findings in serum
CPT/HCPCS: 36415; 80053; 82306; 82607; 83540; 83550; 84439; 84443; 84481; 85025; 86800

== ENCOUNTER 2024-01-28 11:39 | Emergency (ER) | payer MEDICAID, SELFPAY ==
[2024-01-28 11:40] VITALS: BP 154/91; PULSE 83; RESP 16; TEMP 35.8; O2SAT 100; BMI 25.2
--- NOTE | 2024-01-28 12:56 | ED.VIS.BACK ---
HPI History of Present Illness Chief Complaint: Back Informant: patient Narrative Narrative: Healthy 43-year-old female states she started having pain in her low back about a week ago coinciding with sleeping on an uncomfortable mattress icon that she was staying at in [place]. Pain has become worse, it is worse with certain positions and better with others, and she started having tingling in her right flores into the top of her right foot as well as some weakness that she noticed when she was going up and down stairs feeling like her leg was going to give out. The pain also radiates into her left lateral gluteus area but without neurologic symptoms in her left lower extremity or bowel or bladder dysfunction or saddle anesthesia. She thinks she may have had a ruptured or bulging disc a few years ago, she did not have an MRI but she was treated with physical therapy and it got better and went away. Prior similar symptoms: Yes and With Prior Back Pain PFSH PFS Medical History Nodular goiter Christoph's thyroiditis TBI (traumatic brain injury) Adrenal disorder Migraines Normal colonoscopy Constipation Diarrhea Anemia Hx TIA/stroke w/o resid Back problem Thyroid disease Fatigue Home Medications ?Medication ?Instructions ?Recorded ?Last Taken ?Type L.acidoph, paracasei,B. lactis 10 1 ea PO DAILY supplement 02/23/20 Unknown History billion cell capsule ferrous sulfate 325 mg (65 mg 325 mg PO DAILY supplement 02/23/20 Unknown History iron) tablet magnesium 250 mg tablet 250 mg PO DAILY supplement 02/23/20 Unknown History multivitamin 1 ea PO DAILY supplement 02/23/20 Unknown History omega 0-akn-yju-fish oil 300 1 ea PO DAILY supplement 02/23/20 Unknown History mg-1,000 mg capsule ibuprofen 600 mg tablet 600 mg PO Q6H PRN PRN Pain #30 tabs 03/02/20 Unknown Rx rizatriptan 10 mg tablet 5 mg PO .X1 PRN PRN Migraine 03/14/22 Unknown History Symptoms omeprazole 20 mg capsule,delayed 20 mg PO DAILY #30 CAPSULES 09/05/22 Unknown Rx release ondansetron 4 mg disintegrating 4 mg PO Q8H PRN PRN Nausea #10 tabs 09/05/22 Unknown Rx tablet levothyroxine 88 mcg tablet 88 mcg PO DAILY #90 tabs 02/26/23 Unknown Rx hydrocodone-acetaminophen 5-325mg 1 tab PO Q6H PRN PRN Pain 3 days 01/28/24 Unknown Rx 5mg-325mg #12 TABLETS Allergy/AdvReac Type Severity Reaction Status Date / Time venlafaxine HCl (From Allergy throat Verified 01/28/24 11:40 Effexor) swelling Family History Father Hypertension Prostate cancer Mother Hypertension Other Anesthesia complication Anxiety Autoimmune disorder Depression Surgical History Hx of knee surgery Hx of oral surgery Hx of removal of cyst S/P laparoscopic procedure Social History Smoking Status: Never smoker second hand exposure: No alcohol intake: current alcohol intake frequency: a few times a month Alcohol type: wine substance use type: does not use caffeine: Yes what type of physical activity do you participate in: walking, running, bicycling and weight training frequency: 5-6 times per week seatbelt use: always ROS ROS ED Constitutional Constitutional ED: Denies chills or fever(s) Gastrointestinal Gastrointestinal: Denies abdominal pain, constipation, fecal incontinence, nausea or vomiting Genitourinary Genitourinary ED: Reports other Details: no urinary retention ; Denies abdominal discomfort or urinary incontinence Musculoskeletal Musculoskeletal: Reports as per HPI and back pain; Denies neck pain Integumentary Denies rash or wounds Neurologic Neurologic: Reports paresthesias RLE and weakness; Denies headache(s) EXAM Physical Exam Const Vital Signs: 01/28/24 11:40 Temperature 96.5 F L Temperature Source Temporal Pulse Rate 83 Respiratory Rate 16 Blood Pressure 154/91 H Blood Pressure Mean 112 Pulse Ox 100 Oxygen Delivery Method Room Air Positive well nourished and well developed General Appearance ED: well developed and NAD HEENT Negative for trauma or tenderness Eyes PERRL and EOMs intact bilaterally Neck full ROM and supple GI normal to inspection, nondistended, normoactive bowel sounds, soft to palpation and non-tender Back/Spine normal to inspection General Back: Negative for CVA tenderness Lumbar Spine / Lower Back: ROM limited, paraspinal muscle tenderness right (Sciatic notch area) and straight leg raise negative bilaterally; Negative for lumbar spinal tenderness Extremity normal to inspection, full ROM and no pedal edema Neuro oriented x3 and no sensory deficits noted Sensorium / Orientation: alert Motor Exam: strength 5/5 throughout and clonus absent Deep Tendon Reflexes: Rt Patellar (L4): 1+, Lt Patellar (L4): 2+, Rt Ankle (S1): 1+ and Lt Ankle (S1): 2+ Deep Tendon Reflexes Back: Rt Patellar (L4): 1+, Lt Patellar (L4): 2+, Rt Ankle (S1): 1+ and Lt Ankle (S1): 2+ Plantar Reflex: Downgoing: bilateral Psych mental status grossly normal and thought process normal Skin no rashes or lesions noted and no wounds MDM MDM MDM Narrative Medical decision making narrative: I did a detailed neurologic exam. As documented above each muscle group was symmetric and strong subjectively and objectively, but she has diminished reflexes on the right compared with the left. She does walk normally here in the emergency department. I discussed this with Dr. Padgett, he understands and advises supportive care and outpatient therapy. We both agree that this may be consistent with a radiculopathy but no emergent surgery indicated at this time or emergent MRI. I reviewed her outpatient paperwork showing the medication she was treated with when she was seen at an [facility] for this. She was given an injection of Decadron 10 mg in addition to Toradol, and prescribed a 6-day taper of prednisone on top of that. She is already completed 4 days of the taper. Although I do not think double dipping on steroid oral anti-inflammatories is indicated or going to be helpful, at this point since she has already completed most of the taper I would finish it off to avoid adrenal insufficiency. She was also prescribed a muscle relaxer, I advised her if she does not feel like it is helping to avoid that, and she is on meloxicam which she can continue taking. I am going to prescribe her some hydrocodone and give her a dose of morphine here she has a ride home. Discharge Plan Triage Chief Complaint: Back ED Provider: Jonn Nash Dx/Rx/DC Orders Clinical Impression: Lumbar back pain with radiculopathy affecting right lower extremity Instructions: ED Sciatica Prescriptions: New hydrocodone-acetaminophen 5-325 mg tablet 1 tab PO Q6H PRN PRN (Reason: Pain) 3 Days Qty: 12 0RF No Action levothyroxine 88 mcg tablet 88 mcg PO DAILY Qty: 90 3RF rizatriptan 10 mg tablet 5 mg PO .X1 PRN PRN (Reason: Migraine Symptoms) multivitamin 1 EACH tablet 1 ea PO DAILY ferrous sulfate 325 MG tablet 325 mg PO DAILY magnesium 250 MG tablet 250 mg PO DAILY omega 2-evq-uzv-fish oil 1 EACH capsule 1 ea PO DAILY L.acidoph, paracasei,B. lactis 1 EACH capsule 1 ea PO DAILY ibuprofen 600 MG tablet 600 mg PO Q6H PRN PRN (Reason: Pain) Qty: 30 0RF omeprazole [omeprazole] 20 mg capsule,delayed release(DR/EC) 20 mg PO DAILY Qty: 30 0RF ondansetron [ondansetron] 4 mg tablet,disintegrating 4 mg PO Q8H PRN PRN (Reason: Nausea) Qty: 10 0RF Primary Care Provider: Tasneem Quevedo Referrals: Chai Padgett DO [Med Staff - Active Staff] - (call for appt (if they do not call you 1st)) Tasneem Quevedo PA-C [Primary Care Provider] - Print Language: Citizen Of [place] Disposition Disposition: Home, Self Care
[2024-01-28] MEDS: Morphine 4 MG/ML Syringe IM (13:19)
[2024-01-28] MEDS: Ondansetron ODT 4 MG Tablet 8 MG PO (13:19)
[2024-01-28 13:43] VITALS: BP 142/86; PULSE 81; RESP 16; TEMP 36.6; O2SAT 99
== END 2024-01-28 13:44 | disposition home or self-care (01) ==
PROVIDERS: Emergency Provider Emergency Medicine; PCP Family Medicine; Visit Provider Emergency Medicine
DX: M54.16 Radiculopathy, lumbar region (principal)
CPT/HCPCS: 96372; 99282

== ENCOUNTER → 2024-03-21 | Outpatient (CLI) | payer MEDICAID, SELFPAY ==
[2024-03-21 12:06] LABS: Hemoglobin 11.8 g/dL (12.0-15.0); Mean Corp Hgb Conc 31.9 g/dL (32-36); Mean Corpuscular Hgb 25.5 pg (27.0-32.0); Mean Corpuscular Volume 80.1 fL (81-99); Mean Platelet Vol. 9.4 fl (6.2-12.0); Platelet Count 257 K/mm3 (150-450); RBC Distribution Width CV 14.8 % (11.6-14.6); RBC Distribution Width SD 43.2 fl (35.1-43.9); Red Blood Count 4.62 M/mm3 (4.2-5.4); White Blood Count 6.3 K/mm3 (4.4-11.0)
[2024-03-21 13:09] LABS: ALB/GLOB Ratio 1.3 RATIO (0.9-2.4); AST(SGOT) 13 U/L (15-37); Alanine Aminotransfer ALT/SGPT 26 U/L (13-56); Albumin, Serum 3.9 g/dL (3.2-5.0); Alkaline Phosphatase 54 U/L (45-117); Anion Gap 9 (5-15); BUN 12 mg/dL (7-18); BUN/Creat Ratio 17.7 RATIO (10-20); Calcium,Total 8.8 mg/dL (8.5-10.1); Chloride 105 mmol/L (98-107); Creatinine, Serum 0.68 mg/dL (0.55-1.02); EST Glomerular Filtration Rate 102 mL/min (>60); Est Glom Filt Rate - Afr Amer 123 mL/min (>60); Free T3 2.7 pg/mL (2.18-3.98); Globulin 2.9 g/dL (2.2-4.2); Glucose 96 mg/dL (74-106); Iron 41 ug/dL (50-170); Iron Binding Capacity,Total 383 ug/dL (250-450); PERCENT IRON SATURATION 10.7 % (15.0-55.0); Potassium 3.8 mmol/L (3.5-5.1); Protein, Total 6.8 g/dL (6.4-8.2); Sodium Level 136 mmol/L (136-145); Thyroid Stim Hormone (TSH) 0.315 uIU/mL (0.358-3.740)
[2024-03-21 13:45] LABS: Vitamin B12 901 pg/mL (211-911); Vitamin D,25 Hydroxy 49.8 ng/mL
[2024-04-12 03:07] LABS: Anti-Thyroglobulin AB 3.5 IU/mL (0.0-0.9); Thyroglobulin RIA 114 ng/mL (.)
== END | disposition home or self-care (01) ==
PROVIDERS: PCP Family Medicine; Referring Provider Family Medicine; Visit Provider Family Medicine
DX: R76.8 Other specified abnormal immunological findings in serum (principal); R53.82 Chronic fatigue, unspecified
CPT/HCPCS: 36415; 80053; 82306; 82607; 83540; 83550; 84432; 84439; 84443; 84481; 85027; 86800

== ENCOUNTER → 2024-05-26 | Outpatient (CLI) | payer MEDICAID, SELFPAY | END | disposition home or self-care (01) | LOC: LABSPEC 14:56 | PROVIDERS: PCP Family Medicine; Visit Provider Family Medicine | DX: R39.15 Urgency of urination (principal) | CPT/HCPCS: 87086; 87088 ==

== ENCOUNTER → 2024-06-13 | Outpatient (CLI) | payer MEDICAID, SELFPAY ==
--- NOTE | 2024-06-13 14:29 | BI_ITS ---
PROCEDURE: DIAG MAMM W/CAD, BILAT; BREAST LIMITED UNILATERAL; BILAT BRST [place] STAND ALONE REASON FOR EXAM: 43-year-old female presents with palpable concern in the left breast. No family history of breast cancer. TECHNIQUE: Bilateral diagnostic digital breast tomosynthesis with 2D and 3D images. Computer aided detection. Also, targeted bilateral breast ultrasound was performed. COMPARISON: 12/12/2016 FINDINGS: MAMMOGRAM: There are scattered areas of fibroglandular density. There is a triangle skin marker indicating the area of palpable concern in the upper-outer left breast. Underlying the skin marker is an obscured mass. There is an asymmetry in the superior right breast at posterior depth. Also there is an asymmetry in the central right breast at posterior depth. These asymmetries partially efface with the spot compression views and may represent benign overlapping fibroglandular tissues. LEFT BREAST ULTRASOUND: Targeted left breast ultrasound performed of the area of palpable concern at 2 o'clock 4 cm from the nipple demonstrates 3 adjacent cysts, the largest measures 1.1 x 1.1 x 1.1 cm. Otherwise, there are no suspicious findings in the left breast. RIGHT BREAST ULTRASOUND: Targeted right breast ultrasound performed of the superior right breast demonstrates no definite sonographic correlate for the mammographic findings seen in the superior and central right breast at posterior depth. Otherwise there are 2 normal-appearing lymph nodes visualized at 9 o'clock 8 cm from the nipple measuring 1.1 x 1.2 x 0.4 cm and another lymph node at 10 o'clock 5 cm from the nipple measuring 1.0 x 1.2 x 0.3 cm. BI/Bilat Brst [place] Stand Alone IMPRESSION: The patient's palpable area of concern in the left breast corresponds to benign cysts. Otherwise, there are no suspicious findings in the left breast. The asymmetries in the superior and central right breast at posterior depth wit hout sonographic correlates are probably benign. Recommend short interval six-month follow-up diagnostic mammogram of the right breast for further evaluation. BI-RADS 3: PROBABLY BENIGN. Follow-up code: 6 Month Follow-up Reading Location: [id number]
== END | disposition home or self-care (01) ==
LOC: OPBI 14:25
PROVIDERS: PCP Family Medicine; Referring Provider Family Medicine; Visit Provider Family Medicine
DX: N63.21 Unspecified lump in the left breast, upper outer quadrant (principal)
CPT/HCPCS: 77062; 76642; 77066; G0279

== ENCOUNTER → 2024-07-14 | Outpatient (CLI) | payer MEDICAID, SELFPAY ==
[2024-07-14 15:13] LABS: Ferritin 31 ng/mL (22-378)
== END | disposition home or self-care (01) ==
LOC: LAB 13:22
PROVIDERS: PCP Family Medicine; Referring Provider Internal Medicine Endocrinology, Diabetes & Metabolism; Visit Provider Internal Medicine Endocrinology, Diabetes & Metabolism
DX: E06.3 Autoimmune thyroiditis (principal)
CPT/HCPCS: 36415; 82728; 84439; 84443

== ENCOUNTER 2024-07-16 10:30 | Outpatient (RCR) | payer MEDICAID, SELFPAY ==
--- NOTE | 2024-05-19 16:40 | HP.PTEVAL_ITS ---
Patient's Visit Information Visit Information Visit Information: ROSI PINA is a 43 year old F referred to Physical Therapy by Tasneem Quevedo PA-C with a diagnosis of BACK PAIN. Date of Evaluation: 05/19/24 Physical Therapist: Edgar Garcia, PT, Cert MDT, OCS Visit Plan Frequency: 2x /Week Duration: 4 Weeks Plan: PT INTERVENTIONS INITIALLY HILDA EX'S , PROGRESS DLS ,POSTURAL EX'S , POSTURE/BODY MECHANICS ,,ACTIVITY MODIFICATION AND MODALITIES Subjective Subjective: This 43 y/o female presents to physical therapy with back pain with radicular symptoms. Patient developed back pain Jan 2024 driving noticed ache next day developed only right leg symptoms radiating lateral leg. Patient went to Urgent Care with pain injection and prednisone . Patient pain persisted then went to [facility] morphine interjections.Medication ibuprofen. Pain persisted until Mar but show consistent improvement . Aggravating bending ,sitting ,lifting . Alleviating factors walking and standing. Coughing/sneezing-. Bowel/bladder-. Patient pain affects sleeping, Patient initially had paresthesia/tingling but better. Patient had h/o 2021 . Patient had MRI showed HNP lumbar. Patient sees chiropractor. Patient condition affects QOL and function /ADLS and job demands .Patient goals to decrease pain SOCAIL: single HOBBIES: hike VOCATION: unemployed Pain Bilateral Back: Pain Intensity (Out of 10): 3 Pain Intensity Range: 10 Objective Objective: POSTURE: WFL ,decrease lordosis PALAPTION: unremarkable NEURO: denies paresthesia/tingling ,reflexes L3-4,L4-5,L5-S1 2/3 GAIT: reciprocal pattern LUMBAR ROM: flexion mod loss pain .side glides min loss pain,extension mod loss pain MMT: quads/hams 4/5 ,hip flexion 4/5 ,ankle 4/5 Special Tests L/S Slump test left side: Negative L/S Slump test right side: Positive L/S Left Straight Leg Raise: Negative L/S Right Straight Leg Raise: Positive Lumbar Standing: Flexion - Mechanical Response: No effect Lumbar Standing: Flexion - Symptoms During Testing: Increases Lumbar Standing: Flexion - Symptoms After Testing: Worse Lumbar Standing: Extension - Mechanical Response: No effect Lumbar Standing: Extension - Symptoms During Testing: Decreases Lumbar Standing: Extension - Symptoms After Testing: Better Lumbar Standing: Right Side Glides - Mechanical Response: No effect Lumbar Standing: Right Side [place] - Symptoms During Testing: No effect Lumbar Standing: Right Side [place] - Symptoms After Testing: No effect Lumbar Standing: Left Side [place] - Mechanical Response: No effect Lumbar Standing: Left Side [place] - Symptoms During Testing: No effect Lumbar Standing: Left Side [place] - Symptoms After Testing: No effect Lumbar Lying: Flexion - Mechanical Response: No effect Lumbar Lying: Flexion - Symptoms During Testing: Increases Lumbar Lying: Flexion - Symptoms After Testing: No worse Lumbar Lying: Extension - Mechanical Response: No effect Lumbar Lying: Extension - Symptoms During Testing: Decreases Lumbar Lying: Extension - Symptoms After Testing: Better Balance/Special Test Scores Oswestry Low Back Score: 18 Goals Goal 1:: Patient to be I with HEP for back Goal Time Frame: 4-6 Weeks Goal 2:: Patient to improve lumbar ROM for function of recovery for ADLS and putting on shoes Goal Time Frame: 4-6 Weeks Goal 3:: Patient to improve back oswestry score by 5 point to improve QOL and function Goal Time Frame: 4-6 Weeks Goal 4:: Patient to demonstrate 50% improvement with less pain and improve function Goal Time Frame: 4-6 Weeks Goal 5:: Patient be able to manage symptoms with correct posture and body mechanics 90% Goal Time Frame: 4-6 Weeks Rehabilitation Potential Physical Therapy Diagnosis: 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 with pain worse with flexion better with extension and walking increases positioning and motion testing thus benefit from skilled PT Rehabilitation Potential: Good Anticipated Interventions Patient/Client Instruction: Educate patient on: Condition and Plan of Care For the Purpose of:: To decrease pain, To increase ROM, To improve muscle performance and motor function, To improve ability to perform ADL's, To increase tolerance to activity/condition/position, To improve ability of physical actions for home/community/work/leisure, To improve health of tissue, To decrease soft tissue restriction and To increase flexibility/ROM Therapeutic Exercise to Include: Strength training, Postural training, Flexibilty training, Dynamic Lumbar Stabilization and Hilda Exercises For the Purpose of:: To decrease pain, To increase ROM, To improve muscle performance and motor function, To increase tolerance to activity/condition/position, To improve ability of physical actions for home/community/work/leisure, To improve health of tissue, To decrease soft tissue restriction and To increase flexibility/ROM TENS: Yes IF ES: Yes Cryotherapy (ice pack, ice massage): Yes Thermo therapy (hot pack): Yes Ultrasound (thermal/non thermal): Yes For the Purpose of:: To decrease pain, To increase ROM, To improve nutrient delivery to tissue, To increase oxygenation perfusion, To improve health of tissue and To decrease soft tissue restriction Text: Thank you for the opportunity to evaluate your patient. For Medicare and Medicare HMO plans, please review the plan of care and approve it. It will need to be FAXED BACK to us at [phone] for Medicare purposes. For Medicare only, by signing this I certify the plan of care. Please let me know if there are questions or concerns regarding this plan of care. Physician Signature: Date:
--- NOTE | 2024-07-16 11:05 | HP.PTEVAL_ITS ---
Patient's Visit Information Visit Information Visit Information: ROSI PINA is a 43 year old F referred to Physical Therapy by Tasneem Quevedo PA-C with a diagnosis of BACK PAIN. Date of Evaluation: 05/19/24 Physical Therapist: Zac Causey, PT, ATC Visit Plan Frequency: 2x /Week Duration: 4 Weeks Plan: 07/16/24- Cont with POC x 3 visits PT INTERVENTIONS INITIALLY HILDA EX'S, PROGRESS DLS ,POSTURAL EX'S , POSTURE/BODY MECHANICS, ACTIVITY MODIFICATION AND MODALITIES Subjective Subjective: This 43 y/o female presents to physical therapy with back pain with radicular symptoms. Patient developed back pain Jan 2024 driving noticed ache next day developed only right leg symptoms radiating lateral leg. Patient went to Urgent Care with pain injection and prednisone . Patient pain persisted then went to [facility] morphine interjections.Medication ibuprofen. Pain persisted until Mar but show consistent improvement . Aggravating bending ,sitting ,lifting . Alleviating factors walking and standing. Coughing/sneezing-. Bowel/bladder-. Patient pain affects sleeping, Patient initially had paresthesia/tingling but better. Patient had h/o 2021 . Patient had MRI showed HNP lumbar. Patient sees chiropractor. Patient condition affects QOL and function /ADLS and job demands .Patient goals to decrease pain SOCAIL: single HOBBIES: hike VOCATION: unemployed Pain Bilateral Back: Pain Intensity (Out of 10): 3 Pain Intensity Range: 10 Objective Objective: POSTURE: WFL ,decrease lordosis PALAPTION: unremarkable NEURO: denies paresthesia/tingling ,reflexes L3-4,L4-5,L5-S1 2/3 GAIT: reciprocal pattern LUMBAR ROM: flexion mod loss pain .side glides min loss pain,extension mod loss pain MMT: quads/hams 4/5 ,hip flexion 4/5 ,ankle 4/5 Special Tests L/S Slump test left side: Negative L/S Slump test right side: Positive L/S Left Straight Leg Raise: Negative L/S Right Straight Leg Raise: Positive Lumbar Standing: Flexion - Mechanical Response: No effect Lumbar Standing: Flexion - Symptoms During Testing: Increases Lumbar Standing: Flexion - Symptoms After Testing: Worse Lumbar Standing: Extension - Mechanical Response: No effect Lumbar Standing: Extension - Symptoms During Testing: Decreases Lumbar Standing: Extension - Symptoms After Testing: Better Lumbar Standing: Right Side Glides - Mechanical Response: No effect Lumbar Standing: Right Side [place] - Symptoms During Testing: No effect Lumbar Standing: Right Side [place] - Symptoms After Testing: No effect Lumbar Standing: Left Side [place] - Mechanical Response: No effect Lumbar Standing: Left Side [place] - Symptoms During Testing: No effect Lumbar Standing: Left Side [place] - Symptoms After Testing: No effect Lumbar Lying: Flexion - Mechanical Response: No effect Lumbar Lying: Flexion - Symptoms During Testing: Increases Lumbar Lying: Flexion - Symptoms After Testing: No worse Lumbar Lying: Extension - Mechanical Response: No effect Lumbar Lying: Extension - Symptoms During Testing: Decreases Lumbar Lying: Extension - Symptoms After Testing: Better Balance/Special Test Scores Oswestry Low Back Score: 13 Goals Goal 1:: Patient to be I with HEP for back Goal Time Frame: 4-6 Weeks Goal 2:: Patient to improve lumbar ROM for function of recovery for ADLS and putting on shoes Goal Time Frame: 4-6 Weeks Goal 3:: Patient to improve back oswestry score by 5 point to improve QOL and function Goal Time Frame: 4-6 Weeks Goal 4:: Patient to demonstrate 50% improvement with less pain and improve function Goal Time Frame: 4-6 Weeks Goal 5:: Patient be able to manage symptoms with correct posture and body mechanics 90% Goal Time Frame: 4-6 Weeks Rehabilitation Potential Physical Therapy Diagnosis: 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 with pain worse with flexion better with extension and walking increases positioning and motion testing thus benefit from skilled PT Rehabilitation Potential: Good Anticipated Interventions Patient/Client Instruction: Educate patient on: Condition and Plan of Care For the Purpose of:: To decrease pain, To increase ROM, To improve muscle performance and motor function, To improve ability to perform ADL's, To increase tolerance to activity/condition/position, To improve ability of physical actions for home/community/work/leisure, To improve health of tissue, To decrease soft tissue restriction and To increase flexibility/ROM Therapeutic Exercise to Include: Strength training, Postural training, Flexibilty training, Dynamic Lumbar Stabilization and Hilda Exercises For the Purpose of:: To decrease pain, To increase ROM, To improve muscle performance and motor function, To increase tolerance to activity/condition/position, To improve ability of physical actions for jonathan e/community/work/leisure, To improve health of tissue, To decrease soft tissue restriction and To increase flexibility/ROM TENS: Yes IF ES: Yes Cryotherapy (ice pack, ice massage): Yes Thermo therapy (hot pack): Yes Ultrasound (thermal/non thermal): Yes For the Purpose of:: To decrease pain, To increase ROM, To improve nutrient delivery to tissue, To increase oxygenation perfusion, To improve health of tissue and To decrease soft tissue restriction Text: Thank you for the opportunity to evaluate your patient. For Medicare and Medicare HMO plans, please review the plan of care and approve it. It will need to be FAXED BACK to us at [phone] for Medicare purposes. For Medicare only, by signing this I certify the plan of care. Please let me know if there are questions or concerns regarding this plan of care. Physician Signature: Date:
--- NOTE | 2024-07-16 12:01 | HP.PTREVAL ---
Re-Evaluation Intro: Tasneem Quevedo PA-C, It has been my pleasure to treat ROSI PINA over the last 10 visits for BACK PAIN. Please see the progress note below for an update on the physical therapy plan of care! Subjective Subjective: I am not really any better, but I am not worse Objective Objective/Function: LBP ranges from 3-6/10 Pt reports no R LE radiculopathy today, but reports she had it over the weekend Pt is I with HEP Pt is moderately to severely limited with L/S extension ROM at this time. Plan Plan Plan: 07/16/24- Cont with POC x 3 visits PT INTERVENTIONS INITIALLY HILDA EX'S, PROGRESS DLS ,POSTURAL EX'S , POSTURE/BODY MECHANICS, ACTIVITY MODIFICATION AND MODALITIES Balance/Gait/Functional tests Balance/Special Test Scores Oswestry Low Back Score: 13 Goals Goals Goal 1:: Patient to be I with HEP for back Goal Time Frame: 4-6 Weeks Goal Progress: Goal Met Goal 2:: Patient to improve lumbar ROM for function of recovery for ADLS and putting on shoes Goal Time Frame: 4-6 Weeks Goal Progress: Progressing Goal 3:: Patient to improve back oswestry score by 5 point to improve QOL and function Goal Time Frame: 4-6 Weeks Goal 4:: Patient to demonstrate 50% improvement with less pain and improve function Goal Time Frame: 4-6 Weeks Goal Progress: Progressing Goal 5:: Patient be able to manage symptoms with correct posture and body mechanics 90% Goal Time Frame: 4-6 Weeks Goal Progress: Progressing Anticipated Interventions Anticipated Interventions Patient/Client Instruction: Educate patient on: Condition and Plan of Care For the Purpose of:: To decrease pain, To increase ROM, To improve muscle performance and motor function, To improve ability to perform ADL's, To increase tolerance to activity/condition/position, To improve ability of physical actions for home/community/work/leisure, To improve health of tissue, To decrease soft tissue restriction and To increase flexibility/ROM Therapeutic Exercise to Include: Strength training, Postural training, Flexibilty training, Dynamic Lumbar Stabilization and Hilda Exercises For the Purpose of:: To decrease pain, To increase ROM, To improve muscle performance and motor function, To increase tolerance to activity/condition/position, To improve ability of physical actions for home/community/work/leisure, To improve health of tissue, To decrease soft tissue restriction and To increase flexibility/ROM TENS: Yes IF ES: Yes Cryotherapy (ice pack, ice massage): Yes Thermo therapy (hot pack): Yes Ultrasound (thermal/non thermal): Yes For the Purpose of:: To decrease pain, To increase ROM, To improve nutrient delivery to tissue, To increase oxygenation perfusion, To improve health of tissue and To decrease soft tissue restriction Re-Evaluation Ending Re-evaluation ending: Please do not hesitate to contact me at [phone] by phone or if you have questions or concerns regarding this new plan of care! Sincerely, Zac Causey, PT, ATC
--- NOTE | 2024-11-26 08:35 | HP.PTDCSUM_ITS ---
Discharge Summary D/C summary: It has been my pleasure to treat ROSI PINA referred by Tasneem Quevedo PA-C, with the diagnosis of BACK PAIN for a total of 10 visit(s). Discharge Date: Please see the following information for a summary of their discharge status. Subjective Subjective: I am not really any better, but I am not worse Pain Bilateral Back: Pain Intensity (Out of 10): 3 Overall Improvement % Improvement: 5 Objective Objective/Function: LBP ranges from 3-6/10 Pt reports no R LE radiculopathy today, but reports she had it over the weekend Pt is I with HEP Pt is moderately to severely limited with L/S extension ROM at this time. Goals Goal 1:: Patient to be I with HEP for back Goal Progress: Goal Met Goal 2:: Patient to improve lumbar ROM for function of recovery for ADLS and pu tting on shoes Goal Progress: Progressing Goal 3:: Patient to improve back oswestry score by 5 point to improve QOL and function Goal 4:: Patient to demonstrate 50% improvement with less pain and improve function Goal Progress: Progressing Goal 5:: Patient be able to manage symptoms with correct posture and body mechanics 90% Goal Progress: Progressing Plan Plan: 07/16/24- Cont with POC x 3 visits PT INTERVENTIONS INITIALLY HILDA EX'S, PROGRESS DLS ,POSTURAL EX'S , POSTURE/BODY MECHANICS, ACTIVITY MODIFICATION AND MODALITIES D/C Information d/c sentence: If there are questions or concerns regarding this patient's physical therapy, please feel free to call me at [phone]. Thank you for the referral of this patient. Sincerely, Edgar Garcia, PT, Cert MDT, OCS Balance/Gait/Functional tests Balance/Special Test Scores Oswestry Low Back Score: 13 Improvement % Improvement: 5
== END 2024-07-16 19:00 | disposition home or self-care (01) ==
LOC: PT 10:30
PROVIDERS: PCP Family Medicine; Referring Provider Family Medicine; Visit Provider Family Medicine
DX: M54.9 Dorsalgia, unspecified (principal)
CPT/HCPCS: 97014; 97110; 97162; 97530; G0283

== ENCOUNTER 2024-09-28 12:29 | Emergency (ER) | payer MEDICAID, SELFPAY ==
[2024-09-28 12:30] VITALS: BP 123/73; PULSE 98; RESP 24; TEMP 36.7; O2SAT 100; BMI 26.6
--- NOTE | 2024-09-28 12:33 | EX.ED.DYSGE1 ---
HPI History of Present Illness Chief Complaint: Palpitations Informant: patient Onset/Context/Timing Onset: Days (2) Context: Gradual Onset Timing: Intermittent Quality: Dizzy, faint Location: Generalized Worsened by: Bending and standing Relieved by: Deep breathing Narrative Narrative: Patient presents with dizziness and anxiety that has been intermittent over the past couple days. Patient states she felt palpitations today. Patient states she felt like she was going to pass out. Patient states she was bending and standing frequently this morning and this made her symptoms worse. Patient states she tried doing some deep breathing which seemed to help. Patient states she broke into a sweat. Patient admits to some nausea but denies any vomiting. Patient denies shortness of breath. Patient denies fevers or chills. Patient denies any chest pain. [facility] Medical History Nodular goiter Christoph's thyroiditis TBI (traumatic brain injury) Adrenal disorder Migraines Normal colonoscopy Constipation Diarrhea Anemia Hx TIA/stroke w/o resid Back problem Thyroid disease Fatigue Home Medications ?Medication ?Instructions ?Recorded ?Last Taken ?Type L.acidoph,paracasei,B.animalis 10 1 ea PO DAILY supplement 02/23/20 09/27/24 History billion cell capsule ferrous sulfate 325 mg (65 mg 325 mg PO DAILY supplement 02/23/20 09/27/24 History iron) tablet magnesium 250 mg tablet 250 mg PO DAILY supplement 02/23/20 09/27/24 History multivitamin 1 ea PO DAILY supplement 02/23/20 09/27/24 History omega 8-ebi-uoe-fish oil 300 1 ea PO DAILY supplement 02/23/20 09/27/24 History mg-1,000 mg capsule rizatriptan 10 mg tablet 10 mg PO DAILY PRN Migraine 03/14/22 09/27/24 History Symptoms cyclobenzaprine 10 mg tablet 5 - 10 mg PO TID PRN muscle spasm 09/28/24 09/24/24 History hydroxyzine pamoate 25 mg capsule 50 mg (2 x 25 mg) PO TID PRN PRN 09/28/24 Unknown Rx Anxiety #30 CAPSULES ibuprofen 600 mg tablet 600 mg PO Q6H PRN Pain 09/28/24 Unknown History levothyroxine 88 mcg tablet 88 mcg PO DAILY 09/28/24 09/28/24 History Allergy/AdvReac Type Severity Reaction Status Date / Time venlafaxine HCl (From Allergy throat Verified 09/28/24 12:30 Effexor) swelling Family History Father Hypertension Prostate cancer Mother Hypertension Other Anesthesia complication Anxiety Autoimmune disorder Depression Surgical History S/P laparoscopic procedure Hx of removal of cyst Hx of oral surgery Hx of knee surgery Social History Smoking Status: Never smoker second hand exposure: No alcohol intake: current alcohol intake frequency: a few times a month Alcohol type: wine substance use type: does not use caffeine: Yes what type of physical activity do you participate in: walking, running, bicycling and weight training frequency: 5-6 times per week seatbelt use: always ROS ROS ED Constitutional Constitutional ED: Reports sweats; Denies chills or fever(s) Eyes Eyes: Denies blurry vision or change in vision ENT ENT ED: Denies rhinorrhea or sore throat Cardiovascular Cardiovascular: Reports palpitations; Denies chest pain Respiratory/Chest Respiratory/Chest: Reports dyspnea; Denies cough Gastrointestinal Gastrointestinal: Reports nausea; Denies vomiting Genitourinary Genitourinary ED: Denies dysuria or hematuria Musculoskeletal Musculoskeletal: Reports back pain and neck pain Integumentary Denies abscess or rash Neurologic Neurologic: Denies weakness Psychiatric Psychiatric: Reports anxiety Allergic/Immunologic Allergic/Immunologic ED: Denies mouth swelling or urticaria EXAM Physical Exam Const Vital Signs: 09/28/24 12:30 09/28/24 12:40 09/28/24 14:30 Temperature 98.1 F Temperature Source Oral Pulse Rate 98 82 Pulse Rate [Lying] Pulse Rate [Sitting (for 1 minute prior to obtaining)] Pulse Rate [Standing (for 1 minute prior to obtaining)] Respiratory Rate 24 H 100 H Respiratory Effort Normal Blood Pressure 123/73 H 129/76 H Blood Pressure [Lying] Blood Pressure [Sitting (for 1 minute prior to obtaining)] Blood Pressure [Standing (for 1 minute prior to obtaining)] Blood Pressure Mean 89 93 Blood Pressure Mean [Lying] Blood Pressure Mean [Sitting (for 1 minute prior to obtaining)] Blood Pressure Mean [Standing (for 1 minute prior to obtaining)] Pulse Ox 100 19 Oxygen Delivery Method Room Air Room Air 09/28/24 14:30 Temperature Temperature Source Pulse Rate Pulse Rate [Lying] 76 Pulse Rate [Sitting (for 1 minute prior to obtaining)] 77 Pulse Rate [Standing (for 1 minute prior to obtaining)] 92 Respiratory Rate Respiratory Effort Blood Pressure Blood Pressure [Lying] 129/76 H Blood Pressure [Sitting (for 1 minute prior to obtaining)] 124/76 H Blood Pressure [Standing (for 1 minute prior to obtaining)] 136/85 H Blood Pressure Mean Blood Pressure Mean [Lying] 93 Blood Pressure Mean [Sitting (for 1 minute prior to obtaining)] 92 Blood Pressure Mean [Standing (for 1 minute prior to obtaining)] 102 Pulse Ox Oxygen Delivery Method Positive well nourished and well developed General Appearance ED: well developed and NAD HEENT Reports moist mucous membranes Neck supple and no JVD Resp normal respiratory effort and clear to auscultation bilaterally Cardio regular rate, regular rhythm and no murmurs GI non-tender and non-distended Palpation: soft Extremity normal to inspection General Extremety ED: Negative for edema or tenderness General Extremity: Negative for edema Neuro oriented x3, CN's II-XII intact bilaterally and no sensory deficits noted Sensorium / Orientation: alert Motor Exam: strength 5/5 throughout Psych mental status grossly normal Skin no rashes or lesions noted MDM MDM MDM Narrative Medical decision making narrative: Differential diagnosis includes cardiac dysrhythmia, cardiac ischemia, electrolyte abnormality, pneumonia, bronchitis, dehydration, hypovolemia, and anxiety. EKG will be obtained to assess for cardiac dysrhythmia and cardiac ischemia. Chest x-ray will be obtained to assess for pneumonia or bronchitis. CBC will be obtained to assess for leukocytosis and anemia. Basic metabolic profile will be obtained to assess for electrolyte abnormality and renal function. High-sensitivity troponin will be obtained to assess for cardiac ischemia. 2-hour repeat high-sensitivity troponin will be obtained to assess for ongoing cardiac ischemia. Orthostatic vital signs will be obtained to assess for hypovolemia and dehydration. History & Record Review Additional record(s) reviewed:: Prior outpatient record, Prior ED visit and Prior labs Lab Data Attestation: I reviewed the patient's lab results. Lab results narrative: CBC was reviewed and was essentially within normal limits. Basic metabolic profile was reviewed and was within normal limits. Serum hCG was reviewed and was negative. High-sensitivity troponin was reviewed and was normal at 7. 2-hour repeat high-sensitivity troponin was reviewed and was normal at 9. Labs: Laboratory Results - last 24 hr 09/28/24 09/28/24 12:38 14:33 WBC 5.7 RBC 4.54 Hgb 12.1 Hct 35.8 L MCV 78.9 L MCH 26.7 L MCHC 33.8 RDW Std Deviation 37.1 RDW Coeff of Evaristo 13.0 Plt Count 291 MPV 9.7 Immature Gran % (Auto) 0.200 Neut % (Auto) 67.5 Lymph % (Auto) 22.6 [place] % (Auto) 7.3 Eos % (Auto) 1.4 Baso % (Auto) 1.0 Absolute Neuts (auto) 3.9 Absolute Lymphs (auto) 1.30 Nucleated RBC % 0 Sodium 135 Potassium 3.3 Chloride 102 Carbon Dioxide 17.9 L Anion Gap 15 BUN 11 Creatinine 0.70 Estim Creat Clear Calc 113.27 Est GFR (MDRD) Non-Af 111 BUN/Creatinine Ratio 15.3 Glucose 119 H Calcium 9.2 Troponin T High Sens 7 Troponin T Hi Sens 2 Hr 9 Serum , Qual NEGATIVE Radiography Chest X-Ray - ED: 2 View, Read by ED Physician, Read by Radiologist and No Acute Disease Diagnostic Testing: Clinical Impression(s) from Imaging Studies Chest X-Ray 09/28/24 12:50 IMPRESSION: NEGATIVE CHEST Reading Location: [facility] [place] and lateral chest x-ray was obtained. There are 2 views. On my independent interpretation, lung lora are clear. There is normal cardiac silhouette. Bony thorax is normal. There is no acute process noted. Radiologist also interpreted the x-ray and agrees. EKG Initial EKG: Attestation: I personally reviewed and interpreted this EKG as follows: Interpretation: Sinus Rhythm (85) and No Acute Injury Pattern Comments: EKG was obtained. On my independent interpretation, it showed a normal sinus rhythm with a rate of 85. DE interval, QRS interval, and QTc intervals were all normal. [place] was normal. There are no acute ST or T wave changes. Prior EKG tracings: available for review Prior: Unchanged (03/01/2020) Treatment and Re-Evaluation :: Orthostatic vital signs were obtained and were within normal limits. Patient was advised of her findings. Patient was given a prescription for a short course of hydroxyzine to take as needed for anxiety. Patient was advised to follow-up with her primary care physician in 5 to 7 days for further evaluation. Patient was instructed to return if worse in any way. Patient understood and was agreeable with the plan. All questions were answered. Discharge Plan Triage Chief Complaint: Palpitations ED Provider: Juvenal Gardner Dx/Rx/DC Orders Clinical Impression: Dizziness, nonspecific, Anxiety Instructions: ED Anxiety Reaction, ED Dizziness, Uncertain Cause Prescriptions: New hydroxyzine pamoate 25 mg capsule 50 mg PO TID PRN PRN (Reason: Anxiety) Qty: 30 0RF No Action rizatriptan 10 mg tablet 10 mg PO DAILY PRN (Reason: Migraine Symptoms) multivitamin 1 EACH tablet 1 ea PO DAILY ferrous sulfate 325 MG tablet 325 mg PO DAILY magnesium 250 MG tablet 250 mg PO DAILY omega 3-gme-iqd-fish oil 1 EACH capsule 1 ea PO DAILY L.acidoph,paracasei,B.animalis 1 EACH capsule 1 ea PO DAILY cyclobenzaprine 10 mg tablet 5 - 10 mg PO TID PRN (Reason: muscle spasm) levothyroxine 88 mcg tablet 88 mcg PO DAILY ibuprofen 600 MG tablet 600 mg PO Q6H PRN (Reason: Pain) Primary Care Provider: Tasneem Quevedo Referrals: Tasneem Quevedo PA-C [Primary Care Provider] - 3-5 Days Print Language: Slovenian Disposition Disposition: Home, Self Care
--- NOTE | 2024-09-28 12:50 | EKG12_ITS ---
Test Reason : SOB/DIZZINESS Blood Pressure : */* mmHG Vent. Rate : 85 BPM Atrial Rate : 85 BPM P-R Int : 158 ms QRS Dur : 82 ms QT Int : 380 ms P-R-T Axes : 71 65 60 degrees QTcB Int : 452 ms Normal sinus rhythm Normal ECG Confirmed by JASON TRACY, SAMANTHA ([id number]), editor in chief newspaper YURI BOYCE ([id number]) on 09/30/2024 7:44:54 AM Referred By: Confirmed By: SAMANTHA GOMEZ MD
--- NOTE | 2024-09-28 12:50 | RAD_ITS ---
PROCEDURE: CHEST PA AND LATERAL 09/28/2024 REASON FOR EXAM: PALPITATIONS TECHNIQUE: CHEST PA AND LATERAL COMPARISON: None. FINDINGS: Hardware: None. Heart: The heart size is normal. Mediastinum: The mediastinal contour is unremarkable. Lungs: No focal consolidation, pleural effusion or pneumothorax. Bones: The bones are unremarkable. RAD/Chest PA and Lateral IMPRESSION: NEGATIVE CHEST Reading Location: [id number]
--- OUTSIDE RECORDS SUMMARY | 2024-09-28 12:52 | XMS RPT_ITS | CCD ---
Author Organization [facility] Care Team Providers Care Housing Project Manager Name Role Phone Warrne Smith MD Unavailable Edgar Medrano MD Unavailable Warren Smith MD Unavailable BOBBI LACEY Attending Unavailable NO, PHYSICIAN Primary Care Unavailable [place] PA-C, Tasneem Primary Care Provider ALEJANDRINA ALBERTO Attending Unavailable SELF, SELF Referring Unavailable HILLS, TASNEEM Primary Care Unavailable ALEJANDRINA ALBERTO Attending Unavailable SELF, SELF Referring Unavailable PLAINWELL, TASNEEM Primary Care Unavailable PLAINWELL, TASNEEM Primary Care Unavailable DENSEL SHAE C Attending Unavailable HILLS, TASNEEM Referring Unavailable HILLS, TASNEEM Primary Care Unavailable ALEJANDRINA ALBERTO Attending Unavailable DENSE, SHAE C Referring Unavailable [place] PA PA-C Tasneem Primary Care Provider [place] FRANCINE PA-C Tasneem Referring Provider [phone] Dr. He Lawton Attending Provider [phone] Brad Beck Attending Provider [phone] PLAINWELL TRENAC, TASNEEM Primary Care Physician [phone] DR ANDREA DOZIER MD Attending Unavailable HILLS PA-C, TASNEEM Primary Care Unavailable [place] PA, PA-C Tasneem Primary Care Provider [place] FRANCINE PA-C Tasneem Referring Provider [phone] Dr. He Lawton Attending Provider HILLS, TASNEEM Attending Unavailable HILLS, TASNEEM Primary Care Unavailable HILLS, TASNEEM Admitting Unavailable HILLS, TASNEEM Admitting Unavailable HILLS, TASNEEM Attending Unavailable HILLS, TASNEEM Primary Care Unavailable HILLS, TASNEEM Attending Unavailable HILLS, TASNEEM Consulting Unavailable HILLS, TASNEEM Primary Care Unavailable HILLS, TASNEEM Admitting Unavailable PROVIDER, UNKNOWN Consulting Unavailable PLAINWELL, TASNEEM Attending Unavailable PLAINWELL, TASNEEM Primary Care Unavailable HILLS, TASNEEM Admitting Unavailable [place] PA-C, Tasneem Primary Care Provider [place] PA-C, Tasneem Attending Provider Sae ALBRECHTC, Tasneem Referring Provider [phone] Dr. He Lawton MD Attending Provider Sina Godwin Attending Provider [phone] Dr. He Lawton MD Referring Provider [phone] TUNG BRAVO (HIST) Referring Unavailabl e PUTTUNG ANGUIANO (HIST) Attending Unavailabl e [place], Tasneem Primary Care Unavailable [place], Tasneem Attending Unavailable [place], Tasneem Referring Unavailable Sina Godwin Attending Unavailable [place], Tasneem Referring Unavailable [place], Tasneem Primary Care Unavailable Jered, He Attending Unavailable [place], Tasneem Referring Unavailable [place], Tasneem Primary Care Unavailable Jered, He Referring Unavailable [place], Tasneem Primary Care Unavailable , He Attending Unavailable [place], Tasneem Attending Unavailable [place], Tasneem Referring Unavailable [place], Tasneem Primary Care Unavailable [place], Tasneem Primary Care Unavailable Jonn Nash Attending Unavailable [place], Tasneem Attending Unavailable [place], Tasneem Referring Unavailable [place], Tasneem Primary Care Unavailable [place], Tasneem Attending Unavailable [place], Tasneem Primary Care Unavailable Allergies Allergy Classification Reported Allergen(s) Allergy Type Date of Onset Reaction(s) Facility (4 sources) venlafaxine drug allergy 7 [facility] Work Phone: (3 sources) venlafaxine; Translations: [venlafaxine HCl] Drug Allergy [address] [facility] (4 sources) venlafaxine; Translations: [venlafaxine] Drug Allergy 6 Flushing, Hypertension, Shortness of Breath, Swelling, Swelling (morphologic abnormality), Difficulty breathing (finding) [facility] Medications Current Medications Medication Drug Class(es) Dates Sig (Normalized) Sig (Original) acetaminophen 325 mg / HYDROcodone bitartrate 5 mg oral tablet (2 sources) Opioid Agonist Start: 01-28-2024 take 1 tablet by mouth every six hours as needed for pain Hydrocodone-Acetamin ophen 5-325 mg tablet Active 1 {tbl} PO EVERY 6 HOURS NEEDED as needed for Pain 12 3 January 28, 2024 cyclobenzaprine hydrochloride 10 mg oral tablet (1 source) Muscle Relaxant Start: 06-12-2022 cyclobenzaprine 10 mg oral tablet 0 Refill(s) Start Date: 06/12/22 Status: Ordered [place] 5-Stj-Pbk-Fish Oil (7 sources) Start: 02-23-2020 take 1 capsule by mouth once daily [place] 1-Xkd-Uim-Fish Oil 1 EACH capsule Active 1 NMA PO DAILY February 23, 2020 1:00am Start: 02-23-2020 [place] 3-Dha-Ep a-Fish Oil Active 1 EACH PO DAILY February 23, 2020 12:00am Start: 02-23-2020 [place] 3-Dha-Ep a-Fish Oil Active 1 EACH PO DAILY February 23, 2020 1:00am ferrous sulfate 325 mg oral tablet (7 sources) Start: 02-23-2020 take 1 tablet by mouth once daily Ferrous Sulfate 325 MG tablet Active 325 mg PO DAILY February 23, 2020 1:00am ibuprofen 600 mg oral tablet (7 sources) Nonsteroidal Anti-inflammatory Drug Start: 03-02-2020 take 1 tablet by mouth every six hours as needed for pain Ibuprofen 600 MG tablet Active 600 mg PO EVERY 6 HOURS NEEDED as needed for Pain March 02, 2020 1:00am L.Acidoph, Paracasei,B. Lactis (5 sources) Start: 02-23-2020 L.Acidoph, Paracasei,B. Lactis Active 1 EACH PO DAILY February 23, 2020 12:00am Start: 02-23-2020 L.Acidoph, Par acasei,B. Lactis Active 1 EACH PO DAILY February 23, 2020 1:00am L.Acidoph,Paracasei,B.Animal is 1 EACH capsule (2 sources) Start: 02-23-2020 take 1 capsule by mouth once daily L.Acidoph,Paracasei,B.Animalis 1 EACH capsule Active 1 NMA PO DAILY February 23, 2020 1:00am levothyroxine sodium 0.088 m g oral tablet (20 sources) l- Th yr ox in e Start: 07-16-2024 take 1 tablet by mouth once daily Levothyroxine 88 mcg tablet Active 88 ug PO daily July 16, 2024 12:00am Start: 04-29-2024 End: 07-16-2024 take 1 tablet by mouth once daily Levothyroxine 75 mcg tablet Discontinued 75 ug PO daily April 29, 2024 1:00am July 16, 2024 9:52pm Start: 06-12-2022 levothyroxine 88 mcg (0.088 mg) oral tablet 0 Refill(s) Start Date: 06/12/22 Status: Ordered Start: 03-14-2022 End: 04-29-2024 take 1 tablet by mouth once daily Levothyroxine 88 mcg tablet Discontinued 88 ug PO DAILY January 29, 2023 12:45pm February 26, 2023 4:27pm Magnesium (7 sources) Start: 02-23-2020 take 1 tablet by sadi th once daily Magnesium 250 MG tablet Active 250 mg PO DAILY February 23, 2020 1:00am Start: 02-23-2020 take 250 mg by mouth once jaiden y Magnesium Active 250 MG PO DAILY February 23, 2020 12:00am Start: 02-23-2020 take 250 mg by mouth once jaiden y Magnesium Active 250 MG PO DAILY February 23, 2020 1:00am Multivitamin 1 EACH tablet (4 sources) Start: 02-23-2020 Multivitamin 1 EACH tablet Active 1 NMA PO DAILY February 23, 2020 1:00am Start: 02-18-2016 End: 02-11-2020 Multivitamin 1 EACH tablet D iscontinued 1 NMA PO DAILY February 18, 2016 12:00am February 11, 2020 3:07pm Multivitamin preparation (10 sources) Start: 02-23-2020 Multivitamin A ctive 1 EACH PO DAILY February 23, 2020 12:00am Start: 02-23-2020 Multivitamin A ctive 1 EACH PO DAILY February 23, 2020 1:00am Start: 02-18-2016 End: 02-11-2020 Multivitamin Discontinued 1 EACH PO DAILY February 17, 2016 11:00pm February 11, 2020 2:07pm Start: 02-18-2016 End: 02-11-2020 Multivitamin Discontinued 1 EACH PO DAILY February 18, 2016 12:00am February 11, 2020 3:07pm naproxen 250 mg oral tablet (1 source) Nonsteroidal Anti-inflammatory Drug Start: 06-12-2022 naproxen 250 mg oral tablet Dose : 250 mg = 1 tab(s), Oral, BID, # 60 tab(s), 0 Refill(s), Pharmacy: [facility] #[id number], Lumbar facet joint pain, 170.2, cm, 06/12/22 8:35:00 EST, Height Start Date: 06/12/22 Status: Ordered omeprazole 20 mg delayed release oral capsule (7 sources) Proton Pump Inhibitor Start: 09-05-2022 End: 04-29-2024 take 1 capsule by mouth once daily Omeprazole 20 mg capsule,delayed release(DR/EC) Active 20 mg PO DAILY April 29, 2024 3:34pm rizatriptan 10 mg oral tablet (20 sources) Serotonin-1b and Serotonin-1d Receptor Agonist Start: 03-14-2022 Rizatriptan Active 5 MG PO .X1 PRN March 14, 2022 3:23pm Start: 07-07-2015 End: 03-14-2022 Rizatriptan 10 mg tablet Act mihai 5 mg PO .X1 PRN as needed for Migraine Symptoms March 14, 2022 3:23pm tiZANidine 4 mg oral tablet (1 source) Central alpha-2 Adrenergic Agonist Start: 06-12-2022 tiZANidine 4 mg oral tablet Dose : 4 mg = 1 tab(s), Oral, q8h, PRN as needed for muscle spasm, # 90 tab(s), 0 Refill(s), Pharmacy: [facility] #[id number], Lumbar facet joint pain, 170.2, cm, 06/12/22 8:35:00 EST, Height Start Date: 06/12/22 Status: Ordered Completed/Discontinued Medications Medication Drug Class(es) Dates Sig (Normalized) Sig (Original) amoxicillin 500 mg oral tablet (7 sources) Penicillin-class Antibacterial Start: 01-14-2017 End: 11-11-2018 take 1 tablet by mouth three times daily Amoxicillin 500 MG tablet Discontinued 500 mg PO THREE TIMES A DAY January 14, 2017 12:00am November 11, 2018 9:27am nitrofurantoin, macrocrystals 25 mg / nitrofurantoin, monohydrate 75 mg oral capsule (2 sources) Nitrofuran Antibacterial Start: 05-31-2024 End: 06-05-2024 take 1 capsule by mouth every twelve hours at mealtime Nitrofurantoin Monohyd/M-Cryst (Macrobid) 100 mg capsule Discontinued 100 mg PO Q12H 10 5 May 31, 2024 1:00am June 04, 2024 1:00am June 05, 2024 1:09am must administer with a meal/food [place]-3 Fatty Acids (Fish Oil Concentrate) 1,000 mg capsule (7 sources) Start: 11-11-2018 End: 02-11-2020 take 1 capsule by mouth once daily [place]-3 Fatty Acids (Fish Oil Concentrate) 1,000 mg capsule Discontinued 1000 mg PO DAILY November 11, 2018 12:00am February 11, 2020 3:07pm Start: 11-11-2018 End: 02-11-2020 take 1 capsule by mouth once daily [place]-3 Fatty Acids (Fish Oil Concentrate) 1,000 mg capsule Discontinued 1000 MG PO DAILY November 10, 2018 11:00pm February 11, 2020 2:07pm Start: 11-11-2018 End: 02-11-2020 take 1 capsule by mouth once daily [place]-3 Fatty Acids (Fish Oil Concentrate) 1,000 mg capsule Discontinued 1000 MG PO DAILY November 11, 2018 12:00am February 11, 2020 3:07pm ondansetron 4 mg disintegrating oral tablet (5 sources) Serotonin-3 Receptor Antagonist Start: 09-05-2022 End: 04-29-2024 take 1 tablet by mouth every eight hours as needed for nausea Ondansetron 4 mg tablet,disintegrating Discontinued 4 mg PO EVERY 8 HOURS NEEDED as needed for Nausea September 05, 2022 12:00am April 29, 2024 3:35pm oxyCODONE hydrochloride 5 mg oral tablet (7 sources) Opioid Agonist Start: 03-02-2020 End: 03-09-2020 take 1 tablet by mouth every six hours as needed for pain Oxycodone 5 MG tablet Discontinued 5 mg PO EVERY 6 HOURS NEEDED as needed for Pain Score 6-10/10 10 7 March 02, 2020 March 08, 2020 1:00am March 09, 2020 1:03am promethazine hydrochloride 25 mg oral tablet (7 sources) Phenothiazine Start: 01-14-2017 End: 11-11-2018 take 1 tablet by mouth every six hours as needed for nausea Promethazine 25 MG tablet Discontinued 25 mg PO EVERY 6 HOURS NEEDED as needed for Nausea January 14, 2017 12:00am November 11, 2018 9:27am Problems Active Problems Problem Classification Problem Date Documented Da te Episodic/Chronic Abdominal pain (5 sources) Abdominal pain; Translations: [Unspecified abdominal pain] 09-13-2022 Episodic Administrative/social admission (1 source) Stress 06-05-2022 Episodic Anxiety disorders (3 sources) Other specified phobia; Translations: [Anxiety] Onset: 2 Chronic Chronic obstructive pulmonary disease and bronchiectasis (1 source) Bronchitis 06-05-2022 Episodic Deficiency and other anemia (7 sources) Anemia; Translations: [Anemia, unspecified] 03-02-2020 Episodic Delirium, dementia, and amnestic and other cognitive disorders (2 sources) Postconcussional syndrome; Translations: [Postconcussional syndrome] Onset: 2 Chronic Fluid and electrolyte disorders (1 source) Hypokalemia 06-05-2022 Episodic Genitourinary symptoms and ill-defined conditions (1 source) Urgency of urination; Translations: [Urgency of urination] Onset: 5 Episodic Headache; including migraine (10 sources) Migraine; Translations: [Migraine, unspecified, not intractable, without status migrainosus] Onset: 2 Chronic Intracranial injury (6 sources) Concussion with less than 1 hour loss of consciousness; Translations: [Concussion with loss of consciousness of 30 minutes or less, subsequent encounter] Onset: 2 Episodic Malaise and fatigue (2 sources) Chronic fatigue syndrome; Translations: [Chronic fatigue, unspecified] Onset: 4 06-05-2022 Chronic Malaise and fatigue (7 sources) Fatigue; Translations: [Other fatigue] 03-02-2020 Episodic Miscellaneous mental health disorders (1 source) Chronic insomnia 06-05-2022 Chronic Mood disorders (1 source) Major depressive disorder 06-05-2022 Chronic Nonmalignant breast conditions (2 sources) Breasts asymmetrical; Translations: [Other specified disorders of breast] Onset: 7 03-18-2017 Chronic Nonmalignant breast conditions (7 sources) Pain of breast; Translations: [Hypertrophy of breast] Onset: 7 01-02-2017 Episodic Nutritional deficiencies (1 source) Vitamin D deficiency 06-05-2022 Chronic Nutritional deficiencies (1 source) Iron deficiency 06-05-2022 Episodic Other circulatory disease (7 sources) History of cerebrovascular disease; Translations: [Personal history of transient ischemic attack (TIA), and cerebral infarction without residual deficits] 03-02-2020 Episodic Other gastrointestinal disorders (7 sources) Diarrhea; Translations: [Diarrhea, unspecified] 03-02-2020 Episodic Other gastrointestinal disorders (7 sources) Constipation; Translations: [Constipation, unspecified] 03-02-2020 Episodic Other hereditary and degenerative nervous system conditions (2 sources) Mild cognitive impairment, so stated; Translations: [Mild cognitive impairment, so stated] Onset: 2 Chronic Ovarian cyst (7 sources) Cyst of ovary; Translations: [Unspecified ovarian cyst, unspecified side] 03-02-2020 Episodic Residual codes; unclassified (7 sources) History of surgical procedure on mouth; Translations: [Other specified postprocedural states] 03-02-2020 Episodic Comment on above: 2013 and 2016 Residual codes; unclassified (7 sources) History of laparoscopy; Translations: [Other specified postprocedural states] 03-04-2020 Episodic Comment on above: Diagnostic lap; fulg uration of endometriosis. Spondylosis; intervertebral disc disorders; other back problems (14 sources) Degeneration of lumbosacral intervertebral disc; Translations: [Other intervertebral disc degeneration, lumbosacral region] 05-03-2022 Chronic Spondylosis; intervertebral disc disorders; other back problems (17 sources) Back problem; Translations: [Dorsopathy, unspecified] Onset: 5 05-03-2022 Episodic Thyroid disorders (20 sources) Nodular goiter ; Translations: [Nontoxic goiter, unspecified] Onset: 5 04-10-2022 Chronic Thyroid disorders (7 sources) Disorder of thyroid gland; Translations: [Disorder of thyroid, unspecified] 03-02-2020 Episodic Unclassified (2 sources) Unspecified lump in the right breast, unspecified quadrant; Translations: [Unspecified lump in the right breast, unspecified quadrant] Onset: 7 03-18-2017 Unclassified (1 source) Low back pain, unspecified; Translations: [Low back pain, unspecified] Onset: 5 Urinary tract infections (3 sources) Urinary tract infectious disease; Translations: [Urinary tract infection, site not specified] Onset: 5 05-26-2024 Episodic Past or Other Problems Problem Classification Problem Date Documented Da te Episodic/Chronic Blindness and vision defects (2 sources) Visual discomfort, unspecified; Translations: [Visual discomfort, unspecified] Onset: 09-07-2021 Episodic Immunizations and screening for infectious disease (3 sources) Other specified abnormal immunological findings in serum; Translations: [Encounter for screening for infections with a predominantly sexual mode of transmission] Onset: 09-07-2022 Episodic Other gastrointestinal disorders (1 source) Change in bowel habit; Translations: [Change in bowel habit] Onset: 02-22-2017 Episodic Other nervous system disorders (4 sources) H/O: brain disorder; Translations: [Personal history of traumatic brain injury] Onset: 01-02-2017 01-02-2017 Episodic Results Test Name Value Interpretation Reference Range Facility Inital Evaluation (1) - PTon 07-16-2024 Inital Evaluation (1) - PT [facility] [address] [place] [address]. [address] [place] [id number] / REHABILITATION SERVICES INITIAL EVALUATION MR#: [id number] Acct: [id number] Name: ROSI PINA Rep #: [id number] : 1980 43 From: Zac Causey PT, ATC Referring Dr.: Tasneem Quevedo PA-C Status: REG RCR Insurance: [facility] [employer] INSURANCE Patient's Visit Information Visit Information Visit Information: ROSI PINA is a 43 year old F referred to Physical Therapy by Tasneem Quevedo PA-C with a diagnosis of BACK PAIN. Date of Evaluation: 05/19/24 Physical Therapist: Zac Causey, PT, ATC Visit Plan Frequency: 2x /Week Duration: 4 Weeks Plan: 07/16/24- Cont with POC x 3 visits PT INTERVENTIONS INITIALLY NANDA EX'S, PROGRESS DLS ,POSTURAL EX'S , POSTURE/BODY MECHANICS, ACTIVITY MODIFICATION AND MODALITIES Subjective Subjective: This 43 y/o female presents to physical therapy with back pain with radicular symptoms. Patient developed back pain Jan 2024 driving noticed ache next day developed only right leg symptoms radiating lateral leg. Patient went to Urgent Care with pain injection and prednisone . Patient pain persisted then went to [facility] morphine interjections.Medication ibuprofen. Pain persisted until Mar but show consistent improvement . Aggravating bending ,sitting ,lifting . Alleviating factors walking and standing. Coughing/sneezing-. Bowel/bladder-. Patient pain affects sleeping, Patient initially had paresthesia/tingling but better. Patient had h/o 2021 . Patient had MRI showed HNP lumbar. Patient sees chiropractor. Patient condition affects QOL and function /ADLS and job demands .Patient goals to decrease pain SOCAIL: single HOBBIES: hike VOCATION: unemployed Pain Bilateral Back: Pain Intensity (Out of 10): 3 Pain Intensity Range: 10 Objective Objective: POSTURE: WFL ,decrease lordosis PALAPTION: unremarkable NEURO: denies paresthesia/tingling ,reflexes L3-4,L4-5,L5-S1 2/3 GAIT: reciprocal pattern LUMBAR ROM: flexion mod loss pain .side glides min loss pain,extension mod loss pain MMT: quads/hams 4/5 ,hip flexion 4/5 ,ankle 4/5 Special Tests L/S Slump test left side: Negative L/S Slump test right side: Positive L/S Left Straight Leg Raise: Negative L/S Right Straight Leg Raise: Positive Lumbar Standing: Flexion - Mechanical Response: No effect Lumbar Standing: Flexion - Symptoms During Testing: Increases Lumbar Standing: Flexion - Symptoms After Testing: Worse Lumbar Standing: Extension - Mechanical Response: No effect Lumbar Standing: Extension - Symptoms During Testing: Decreases Lumbar Standing: Extension - Symptoms After Testing: Better Lumbar Standing: Right Side Glides - Mechanical Response: No effect Lumbar Standing: Right Side [place] - Symptoms During Testing: No effect Lumbar Standing: Right Side [place] - Symptoms After Testing: No effect Lumbar Standing: Left Side [place] - Mechanical Response: No effect Lumbar Standing: Left Side [place] - Symptoms During Testing: No effect Lumbar Standing: Left Side [place] - Symptoms After Testing: No effect Lumbar Lying: Flexion - Mechanical Response: No effect Lumbar Lying: Flexion - Symptoms During Testing: Increases Lumbar Lying: Flexion - Symptoms After Testing: No worse Lumbar Lying: Extension - Mechanical Response: No effect Lumbar Lying: Extension - Symptoms During Testing: Decreases Lumbar Lying: Extension - Symptoms After Testing: Better Balance/Special Test Scores Oswestry Low Back Score: 13 Goals Goal 1:: Patient to be I with HEP for back Goal Time Frame: 4-6 Weeks Goal 2:: Patient to improve lumbar ROM for function of recovery for ADLS and putting on shoes Goal Time Frame: 4-6 Weeks Goal 3:: Patient to improve back oswestry score by 5 point to improve QOL and function Goal Time Frame: 4-6 Weeks Goal 4:: Patient to demonstrate 50% improvement with less pain and improve function Goal Time Frame: 4-6 Weeks Goal 5:: Patient be able to manage symptoms with correct posture and body mechanics 90% Goal Time Frame: 4-6 Weeks Rehabilitation Potential Physical Therapy Diagnosis: 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 with pain worse with flexion better with extension and walking increases positioning and motion testing thus benefit from skilled PT Rehabilitation Potential: Good Anticipated Interventions Patient/Client Instruction: Educate patient on: Condition and Plan of Care For the Purpose of:: To decrease pain, To increase ROM, To improve muscle performance and motor function, To improve ability to perform ADL's, To increase tolerance to activity/condition/positi on, To improve ability of physical actions for home/community/work/leisu re, To improve health of tissue, To decrease soft tissue restriction and To increase flexibility/ROM Therap (more content not included)... Normal [facility] Re-Evaluation - PT (1)on Re-Evaluation - PT (1) [facility] [address] [place] [address] / REEVALUATION / MEDICARE RECERTIFICATION PHYSICAL THERAPY MR#: [id number] Acct: [id number] Name: ROSI PINA Rep #: [id number] : 1980 43 From: Zac Causey PT, ATC Referring Dr.: BLAIR Quevedo Status:REG RCR Insurance: [facility] [employer] INSURANCE Re-Evaluation Intro: Tasneem Quevedo PA-C, It has been my pleasure to treat ROSI PINA over the last 10 visits for BACK PAIN. Please see the progress note below for an update on the physical therapy plan of care! Subjective Subjective: I am not really any better, but I am not worse Objective Objective/Function: LBP ranges from 3-6/10 Pt reports no R LE radiculopathy today, but reports she had it over the weekend Pt is I with HEP Pt is moderately to severely limited with L/S extension ROM at this time. Plan Plan Plan: 07/16/24- Cont with POC x 3 visits PT INTERVENTIONS INITIALLY NANDA EX'S, PROGRESS DLS ,POSTURAL EX'S , POSTURE/BODY MECHANICS, ACTIVITY MODIFICATION AND MODALITIES Balance/Gait/Functional tests Balance/Special Test Scores Oswestry Low Back Score: 13 Goals Goals Goal 1:: Patient to be I with HEP for back Goal Time Frame: 4-6 Weeks Goal Progress: Goal Met Goal 2:: Patient to improve lumbar ROM for function of recovery for ADLS and putting on shoes Goal Time Frame: 4-6 Weeks Goal Progress: Progressing Goal 3:: Patient to improve back oswestry score by 5 point to improve QOL and function Goal Time Frame: 4-6 Weeks Goal 4:: Patient to demonstrate 50% improvement with less pain and improve function Goal Time Frame: 4-6 Weeks Goal Progress: Progressing Goal 5:: Patient be able to manage symptoms with correct posture and body mechanics 90% Goal Time Frame: 4-6 Weeks Goal Progress: Progressing Anticipated Interventions Anticipated Interventions Patient/Client Instruction: Educate patient on: Condition and Plan of Care For the Purpose of:: To decrease pain, To increase ROM, To improve muscle performance and motor function, To improve ability to perform ADL's, To increase tolerance to activity/condition/positi on, To improve ability of physical actions for home/community/work/leisu re, To improve health of tissue, To decrease soft tissue restriction and To increase flexibility/ROM Therapeutic Exercise to Include: Strength training, Postural training, Flexibilty training, Dynamic Lumbar Stabilization and Nanda Exercises For the Purpose of:: To decrease pain, To increase ROM, To improve muscle performance and motor function, To increase tolerance to activity/condition/positi on, To improve ability of physical actions for home/community/work/leisu re, To improve health of tissue, To decrease soft tissue restriction and To increase flexibility/ROM TENS: Yes IF ES: Yes Cryotherapy (ice pack, ice massage): Yes Thermo therapy (hot pack): Yes Ultrasound (thermal/non thermal): Yes For the Purpose of:: To decrease pain, To increase ROM, To improve nutrient delivery to tissue, To increase oxygenation perfusion, To improve health of tissue and To decrease soft tissue restriction Re-Evaluation Ending Re-evaluation ending: Please do not hesitate to contact me at [phone] by phone or if you have questions or concerns regarding this new plan of care! Sincerely, Zac Causey, PT, ATC 07/16/24 1201 CC: BLAIR Quevedo [facility] Signed For Medicare only, by signing this I certify the plan of care. ___ Physicians Signature Date Normal [facility] Ferritinon 07-14-2024 Ferritin [Mass/Vol] 31 ng/mL Normal 22-378 [facility] Comment on above: Performed By: #### M 100.2200 #### [facility] [address] [place], [address] Serum or plasma ferritin jeana surement (mass/volume)Ordered By: He Lawton on 07-14-2024 Ferritin [Mass/Vol] 31 ng/mL 22-378 [facility] T4 Free Directon 07-14-2024 T4 FREE DIRECT 1.30 ng/dL Normal 0.76-1.46 [facility] Comment on above: Performed By: #### M 100.2200 #### [facility] [address] [place], [place], [id number] T4 freeOrdered By: He Lawton on 07-14-2024 Free T4 [Mass/Vol] 1.30 ng/dL 0.76-1.46 [facility] TSH DL <= 0.005 mIU/L QnOrde red By: He Lawton on 07-14-2024 Thyroid Stimulating Hormone (TSH) 1.510 uIU/mL 0.300-4.[address] [facility] Thyroid Stim Hormone (TSH)on 07-14-2024 TSH 1.510 uIU/mL Normal 0.300-4.[address] [facility] Comment on above: Performed By: #### M 100.2200 #### [facility] [address] [place], [place], [address] Bilat Brst Ricky Stand Aloneo n 06-13-2024 Bilat Brst Ricky Stand Alone [facility] Imaging Services [address] [place], [place] [address] Bilat Brst Ricky Stand Alone MR#: [id number] Acct: [id number] Name: ROSI PINA Rep #: [id number] : 1980 F 43 From: Sally Ramsey MD PCP: Tasneem Quevedo PA-C Status: REG CLI Study: Bilat Brst Ricky Stand Alone Date of Exam: 05/18 12/08 Exam# [id number] Ordering Dr: Tasneem Quevedo PROCEDURE: DIAG MAMM W/CAD, BILAT; BREAST LIMITED UNILATERAL; BILAT BRST RICKY STAND ALONE REASON FOR EXAM: 43-year-old female presents with palpable concern in the left breast. No family history of breast cancer. TECHNIQUE: Bilateral diagnostic digital breast tomosynthesis with 2D and 3D images. Computer aided detection. Also, targeted bilateral breast ultrasound was performed. COMPARISON: 12/12/2016 FINDINGS: MAMMOGRAM: There are scattered areas of fibroglandular density. There is a triangle skin marker indicating the area of palpable concern in the upper-outer left breast. Underlying the skin marker is an obscured mass. There is an asymmetry in the superior right breast at posterior depth. Also there is an asymmetry in the central right breast at posterior depth. These asymmetries partially efface with the spot compression views and may represent benign overlapping fibroglandular tissues. LEFT BREAST ULTRASOUND: Targeted left breast ultrasound performed of the area of palpable concern at 2 o'clock 4 cm from the nipple demonstrates 3 adjacent cysts, the largest measures 1.1 x 1.1 x 1.1 cm. Otherwise, there are no suspicious findings in the left breast. RIGHT BREAST ULTRASOUND: Targeted right breast ultrasound performed of the superior right breast demonstrates no definite sonographic correlate for the mammographic findings seen in the superior and central right breast at posterior depth. Otherwise there are 2 normal-appearing lymph nodes visualized at 9 o'clock 8 cm from the nipple measuring 1.1 x 1.2 x 0.4 cm and another lymph node at 10 o'clock 5 cm from the nipple measuring 1.0 x 1.2 x 0.3 cm. BI/Bilat Brst Ricky Stand Alone IMPRESSION: The patient's palpable area of concern in the left breast corresponds to benign cysts. Otherwise, there are no suspicious findings in the left breast. The asymmetries in the superior and central right breast at posterior depth without sonographic correlates are probably benign. Recommend short interval six-month follow-up diagnostic mammogram of the right breast for further evaluation. BI-RADS 3: PROBABLY BENIGN. Follow-up code: 6 Month Follow-up Reading Location: [facility] CC: BLAIR Quevedo Web Development Instructor: Signed Normal [facility] Breast Limited Unilateralon 06-13-2024 Breast Limited Unilateral [facility] Imaging Services [address] [place] [address] Breast Limited Unilateral MR#: [id number] Acct: [id number] Name: ROSI PINA Rep #: [id number] : 1980 F 43 From: Sally Ramsey MD PCP: Tasneem Quevedo PA-C Status: [facility] CLI Study: Breast Limited Unilateral Date of Exam: Exam# [id number] Ordering Dr: Tasneem Quevedo PROCEDURE: DIAG MAMM W/CAD, BILAT; BREAST LIMITED UNILATERAL; BILAT BRST RICKY STAND ALONE REASON FOR EXAM: 43-year-old female presents with palpable concern in the left breast. No family history of breast cancer. TECHNIQUE: Bilateral diagnostic digital breast tomosynthesis with 2D and 3D images. Computer aided detection. Also, targeted bilateral breast ultrasound was performed. COMPARISON: 12/12/2016 FINDINGS: MAMMOGRAM: There are scattered areas of fibroglandular density. There is a triangle skin marker indicating the area of palpable concern in the upper-outer left breast. Underlying the skin marker is an obscured mass. There is an asymmetry in the superior right breast at posterior depth. Also there is an asymmetry in the central right breast at posterior depth. These asymmetries partially efface with the spot compression views and may represent benign overlapping fibroglandular tissues. LEFT BREAST ULTRASOUND: Targeted left breast ultrasound performed of the area of palpable concern at 2 o'clock 4 cm from the nipple demonstrates 3 adjacent cysts, the largest measures 1.1 x 1.1 x 1.1 cm. Otherwise, there are no suspicious findings in the left breast. RIGHT BREAST ULTRASOUND: Targeted right breast ultrasound performed of the superior right breast demonstrates no definite sonographic correlate for the mammographic findings seen in the superior and central right breast at posterior depth. Otherwise there are 2 normal-appearing lymph nodes visualized at 9 o'clock 8 cm from the nipple measuring 1.1 x 1.2 x 0.4 cm and another lymph node at 10 o'clock 5 cm from the nipple measuring 1.0 x 1.2 x 0.3 cm. US/Breast Limited Unilateral IMPRESSION: The patient's palpable area of concern in the left breast corresponds to benign cysts. Otherwise, there are no suspicious findings in the left breast. The asymmetries in the superior and central right breast at posterior depth without sonographic correlates are probably benign. Recommend short interval six-month follow-up diagnostic mammogram of the right breast for further evaluation. BI-RADS 3: PROBABLY BENIGN. Follow-up code: 6 Month Follow-up Reading Location: [id number] CC: BLAIR Quevedo Web Development Instructor: Signed Normal [facility] Breast Limited Unilateral [facility] Imaging Services [address] [place] [address] Breast Limited Unilateral MR#: [id number] Acct: [id number] Name: ROSI PINA Rep #: [id number] : 1980 F 43 From: Sally Ramsey MD PCP: Tasneem Quevedo PA-C Status: REG CLI Study: Breast Limited Unilateral Date of Exam: Exam# [id number] Ordering Dr: Tasneem Quevedo PROCEDURE: DIAG MAMM W/CAD, BILAT; BREAST LIMITED UNILATERAL; BILAT BRST RICKY STAND ALONE REASON FOR EXAM: 43-year-old female presents with palpable concern in the left breast. No family history of breast cancer. TECHNIQUE: Bilateral diagnostic digital breast tomosynthesis with 2D and 3D images. Computer aided detection. Also, targeted bilateral breast ultrasound was performed. COMPARISON: 12/12/2016 FINDINGS: MAMMOGRAM: There are scattered areas of fibroglandular density. There is a triangle skin marker indicating the area of palpable concern in the upper-outer left breast. Underlying the skin marker is an obscured mass. There is an asymmetry in the superior right breast at posterior depth. Also there is an asymmetry in the central right breast at posterior depth. These asymmetries partially efface with the spot compression views and may represent benign overlapping fibroglandular tissues. LEFT BREAST ULTRASOUND: Targeted left breast ultrasound performed of the area of palpable concern at 2 o'clock 4 cm from the nipple demonstrates 3 adjacent cysts, the largest measures 1.1 x 1.1 x 1.1 cm. Otherwise, there are no suspicious findings in the left breast. RIGHT BREAST ULTRASOUND: Targeted right breast ultrasound performed of the superior right breast demonstrates no definite sonographic correlate for the mammographic findings seen in the superior and central right breast at posterior depth. Otherwise there are 2 normal-appearing lymph nodes visualized at 9 o'clock 8 cm from the nipple measuring 1.1 x 1.2 x 0.4 cm and another lymph node at 10 o'clock 5 cm from the nipple measuring 1.0 x 1.2 x 0.3 cm. US/Breast Limited Unilateral IMPRESSION: The patient's palpable area of concern in the left breast corresponds to benign cysts. Otherwise, there are no suspicious findings in the left breast. The asymmetries in the superior and central right breast at posterior depth without sonographic correlates are probably benign. Recommend short interval six-month follow-up diagnostic mammogram of the right breast for further evaluation. BI-RADS 3: PROBABLY BENIGN. Follow-up code: 6 Month Follow-up Reading Location: [id number] CC: BLAIR Quevedo Web Development Instructor: Signed Normal [facility] Breast imaging reportOrdered By: Sally Ramsey on 06-13-2024 Study report [facility] Imaging Services [address] [place], [place] [address] DIAG MAMM W/CAD, BILAT MR#: [id number] Acct: [id number] Name: ROSI PINA Rep #: [id number] : 1980 F 43 From: Caroline Ramsey MD PCP: Tasneem Quevedo PA-C Status: [facility] Study:DIAG MAMM W/CAD, BILAT Date of Exam: 06/13/24 Exam# [id number] Ordering Dr: Dave Quevedo PA-C PROCEDURE: DIAG MAMM W/CAD, BILAT; BREAST LIMITED UNILATERAL; BILAT BRST RICKY STAND ALONE REASON FOR EXAM: 43-year-old female presents with palpable concern in the left breast. No familyhistory of breast cancer. TECHNIQUE: Bilateral diagnostic digital breast tomosynthesis with 2D and 3D images. Computer aided detection. Also, targeted bilateral breast ultrasound was performed. COMPARISON: 12/12/2016 FINDINGS: MAMMOGRAM: There are scattered areas of fibroglandular density. There is a triangle skin marker indicating the area of palpable concern in the upper-outer left breast. Underlying the skin marker is an obscured mass. There is an asymmetry in the superior right breast at posterior depth. Also there is an asymmetry in the central right breast at posterior depth. These asymmetries partially efface with the spot compression views and may represent benign overlapping fibroglandular tissues. LEFT BREAST ULTRASOUND: Targeted left breast ultrasound performed of the area ofpalpable concern at 2 o'clock 4 cm from the nipple demonstrates 3 adjacent cysts, the largest measures 1.1 x 1.1 x 1.1 cm. Otherwise, there are no suspicious findings in the left breast. RIGHT BREAST ULTRASOUND: Targeted right breast ultrasound performed of the superior right breast demonstrates no definite sonographic correlate for the mammographic findings seen in the superior and central right breast at posterior depth. Otherwise there are 2 normal-appearing lymph nodes visualized at 9 o'clock 8 cm from the nipple measuring 1.1 x 1.2 x 0.4 cm and another lymph node at 10 o'clock 5 cm from the nipple measuring 1.0 x 1.2 x 0.3 cm. BI/DIAG MAMM W/CAD, BILAT IMPRESSION: The patient's palpable area of concern in the left breast corresponds to benign cysts. Otherwise, there are no suspicious findings in the left breast. The asymmetries in the superior and central right breast at posterior depth without sonographic correlates are probably benign. Recommend short interval six-month follow-up diagnostic mammogram of the right breast for further evaluation. BI-RADS 3: PROBABLY BENIGN. Follow-up code: 6 Month Follow-up Reading Location: [facility] CC: BLAIR Quevedo ~ Web Development Instructor: Signed [facility] Study report [facility] Imaging Services [address] [place], [place] [address] Bilat Brst Ricky Stand Alone MR#: [id number] Acct: [id number] Name: ROSI PINA Rep #: [id number] : 1980 F 43 From: Caroline Ramsey MD PCP: Tasneem Quevedo PA-C Status: [facility] Study:Bilat Brst Ricky Stand Alone Date of Exa m: 06/13/24 Exam# [id number] Ordering Dr: Dave Quevedo PA-C PROCEDURE: DIAG MAMM W/CAD, BILAT; BREAST LIMITED UNILATERAL; BILAT BRST RICKY STAND ALONE REASON FOR EXAM: 43-year-old female presents with palpable concern in the left breast. No familyhistory of breast cancer. TECHNIQUE: Bilateral diagnostic digital breast tomosynthesis with 2D and 3D images. Computer aided detection. Also, targeted bilateral breast ultrasound was performed. COMPARISON: 12/12/2016 FINDINGS: MAMMOGRAM: There are scattered areas of fibroglandular density. There is a triangle skin marker indicating the area of palpable concern in the upper-outer left breast. Underlying the skin marker is an obscured mass. There is an asymmetry in the superior right breast at posterior depth. Also there is an asymmetry in the central right breast at posterior depth. These asymmetries partially efface with the spot compression views and may represent benign overlapping fibroglandular tissues. LEFT BREAST ULTRASOUND: Targeted left breast ultrasound performed of the area ofpalpable concern at 2 o'clock 4 cm from the nipple demonstrates 3 adjacent cysts, the largest measures 1.1 x 1.1 x 1.1 cm. Otherwise, there are no suspicious findings in the left breast. RIGHT BREAST ULTRASOUND: Targeted right breast ultrasound performed of the superior right breast demonstrates no definite sonographic correlate for the mammographic findings seen in the superior and central right breast at posterior depth. Otherwise there are 2 normal-appearing lymph nodes visualized at 9 o'clock 8 cm from the nipple measuring 1.1 x 1.2 x 0.4 cm and another lymph node at 10 o'clock 5 cm from the nipple measuring 1.0 x 1.2 x 0.3 cm. BI/Bilat Brst Ricky Stand Alone IMPRESSION: The patient's palpable area of concern in the left breast corresponds to benign cysts. Otherwise, there are no suspicious findings in the left breast. The asymmetries in the superior and central right breast at posterior depth without sonographic correlates are probably benign. Recommend short interval six-month follow-up diagnostic mammogram of the right breast for further evaluation. BI-RADS 3: PROBABLY BENIGN. Follow-up code: 6 Month Follow-up Reading Location: [id number] CC: BLAIR Quevedo ~ Web Development Instructor: Signed [facility] DIAG MAMM W/CAD BILAlla DIAG MAMM W/CAD, BILAT [facility] Imaging Services [address] [place] [address] DIAG MAMM W/CAD, BILTORRIE MR#: [id number] Acct: [id number] Name: ROSI PINA Rep #: [id number] : 1980 F 43 From: Sally Ramsey MD PCP: Tasneem Quevedo PA-C Status: REG CLI Study: DIAG MAMM W/CAD, BILAT Date of Exam: 06/13/24 Exam# [id number] Ordering Dr: Tasneem Quevedo PROCEDURE: DIAG MAMM W/CAD, BILAT; BREAST LIMITED UNILATERAL; BILAT BRST RICKY STAND ALONE REASON FOR EXAM: 43-year-old female presents with palpable concern in the left breast. No family history of breast cancer. TECHNIQUE: Bilateral diagnostic digital breast tomosynthesis with 2D and 3D images. Computer aided detection. Also, targeted bilateral breast ultrasound was performed. COMPARISON: 12/12/2016 FINDINGS: MAMMOGRAM: There are scattered areas of fibroglandular density. There is a triangle skin marker indicating the area of palpable concern in the upper-outer left breast. Underlying the skin marker is an obscured mass. There is an asymmetry in the superior right breast at posterior depth. Also there is an asymmetry in the central right breast at posterior depth. These asymmetries partially efface with the spot compression views and may represent benign overlapping fibroglandular tissues. LEFT BREAST ULTRASOUND: Targeted left breast ultrasound performed of the area of palpable concern at 2 o'clock 4 cm from the nipple demonstrates 3 adjacent cysts, the largest measures 1.1 x 1.1 x 1.1 cm. Otherwise, there are no suspicious findings in the left breast. RIGHT BREAST ULTRASOUND: Targeted right breast ultrasound performed of the superior right breast demonstrates no definite sonographic correlate for the mammographic findings seen in the superior and central right breast at posterior depth. Otherwise there are 2 normal-appearing lymph nodes visualized at 9 o'clock 8 cm from the nipple measuring 1.1 x 1.2 x 0.4 cm and another lymph node at 10 o'clock 5 cm from the nipple measuring 1.0 x 1.2 x 0.3 cm. BI/DIAG MAMM W/CAD, BILAT IMPRESSION: The patient's palpable area of concern in the left breast corresponds to benign cysts. Otherwise, there are no suspicious findings in the left breast. The asymmetries in the superior and central right breast at posterior depth without sonographic correlates are probably benign. Recommend short interval six-month follow-up diagnostic mammogram of the right breast for further evaluation. BI-RADS 3: PROBABLY BENIGN. Follow-up code: 6 Month Follow-up Reading Location: [facility] CC: BLAIR Quevedo Web Development Instructor: Signed Normal [facility] Urine Cultureon 05-28-2024 URC Mixed Gram Positive Organisms Kersey Count 25,000-50,000 MIXC Mixed contaminants. Submit a new specimen if indicated. Normal [facility] Comment on above: Performed By: #### M 100.2200 #### [facility] [address] [place], [place], [id number] Laboratory - Chemistry and C hemistry - challengeOrdered By: Sina Argueta on 05-26-2024 Bilirubin Ql (U) Negative [facility] Glucose Ql (U) Negative [facility] Ketones Ql (U) Trace (5) [facility] pH (U) 6.5 [pH] [facility] Specific gravity (U) [Rel density] 1.010 [facility] Urobilinogen (U) [Mass/Vol] 0.8515828 mg/dL [facility] Laboratory - Hematology and Cell countsOrdered By: Sina Argueta on 05-26-2024 Hemoglobin Ql (U) Negative [facility] Laboratory - Specimen inform ationOrdered By: Sina Argueta on 05-26-2024 Clarity (U) Clear [facility] Color (U) YELLOW [facility] Laboratory - UrinalysisOrder ed By: Sina Argueta on 05-26-2024 Nitrite Ql (U) Negative [facility] Protein Ql (U) Negative [facility] No Panel InformationOrdered By: Sina Argueta on 05-26-[address] [facility] Urine Non-Hemolyzed Blood Negative [facility] Urgent Care Visit Reporton 0 05-26-2024 Urgent Care Visit Report [facility] [address], [address] [place], [place] [address] OFFICE VISIT Date of Service: 05/26/24 MR#: [id number] Acct: [id number] Name: ROSI PINA Rep #: [id number] : 1980 Provider: FRANCINE Leblanc Age/Sex: 43/F Location: [email or web address] Status: Signed Intake Vital Signs 04/29/24 14:32 05/26/24 14:43 Height 5 ft 7 in 5 ft 7 in Weight: 161 lb 6 oz 163 lb 6 oz BMI 25.2 25.5 BP 123/83 H 120/60 Blood Pressure Location Lt brachial Position Sitting Sitting Pulse 86 72 Pulse Source Monitor Temp 98.3 F Temp Source Oral Pulse Oximetry (%) 98 100 Oxygen Delivery Method room air room air Intake Visit Reasons: Urinary tract infection Accompanied by: Self Allergies venlafaxine HCl (From Effexor) Allergy (Verified 05/26/24 14:23) throat swelling Medications ???Medication ???Instructions ???Recorded ???Confirmed ???Type L.acidoph,paracasei,B.ani malis 10 1 ea PO DAILY supplement 02/23/20 04/29/24 History billion cell capsule ferrous sulfate 325 mg (65 mg 325 mg PO DAILY supplement 0 04/29/24 History iron) tablet magnesium 250 mg tablet 250 mg PO DAILY supplement 0 04/29/24 History multivitamin 1 ea PO DAILY supplement 02/23/20 04/29/24 History omega 6-atj-uty-fish oil 300 1 ea PO DAILY supplement 02/23/20 04/29/24 History mg-1,000 mg capsule ibuprofen 600 mg tablet 600 mg PO Q6H PRN PRN Pain #30 tab s 03/02/20 04/29/24 Rx rizatriptan 10 mg tablet 5 mg PO .X1 PRN PRN Migraine 03/1405/26/24 History Symptoms hydrocodone-acetaminophen 5-325mg 1 tab PO Q6H PRN PRN Pain 3 days 01/28/24 04/29/24 Rx 5mg-325mg #12 TABLETS levothyroxine 75 mcg tablet 75 mcg PO QDAY #30 tabs 04/29/24 0 05/26/24 Rx omeprazole 20 mg capsule,delayed 20 mg PO DAILY 04/29/24 History release Nurse's Note: Patient has urgency and pressure and lower back pain with nausea. Patient states she has some burning sometimes this has been going on for 2 days. Patient states she does have a lower back disc prolem going on since Medical History Nodular goiter Christoph's thyroiditis TBI (traumatic brain injury) Adrenal disorder Migraines Normal colonoscopy Constipation Diarrhea Anemia Hx TIA/stroke w/o resid Back problem Thyroid disease Fatigue Surgical History S/P laparoscopic procedure Hx of removal of cyst Hx of oral surgery Hx of knee surgery Family History Father Hypertension Prostate cancer Mother Hypertension Other Anesthesia complication Anxiety Autoimmune disorder Depression Social History Smoking Status: Never smoker second hand exposure: No alcohol intake: current alcohol intake frequency: a few times a month Alcohol type: wine substance use type: does not use caffeine: Yes what type of physical activity do you participate in: walking, running, bicycling and weight training frequency: 5-6 times per week seatbelt use: always HPI HPI Details: ROSI PINA, is a 43 F who presents to the office today for [facility] at [facility] for approximately 2 day history of dysuria and urinary frequency with suprapubic pressure. No complaints of fever, chills, sweats, lightheadedness/dizziness , nausea/vomiting, or chest pain/shortness of breath/dyspnea on exertion/back pain. No changes in color/ character of urine or stool; no urethral/ vaginal discharge. No kzba-guk-xolkmhv products taken to assist. No other associated symptoms and no alleviating/aggravating factors. ROS Const Constitutional: No other (As above) Exam Const General: cooperative, healthy appearing and no acute distress Orientation: alert, awake and oriented x3 Chest Chest palpation inspection: normal inspection of the chest Resp Effort Inspection: normal respiratory effort and able to speak in complete sentences Auscultation: Bilateral: Clear to Auscultation Cardio Palpation: normal PMI Rate: regular rate Rhythm: regular rhythm Heart Sounds: S1 normal, S2 normal, no gallops, no murmurs and no rubs Pulses: radial pulses present GI Inspection: normal to inspection Palpation: soft and tender suprapubic (Patient describes upon self-palpation) General: No CVA tenderness Skin General: no rashes or lesions noted Neuro General: patient alert, patient awake and patient oriented x3 Cognition: normal cognition Speech: speech normal Psych Appearance: grossly normal Mental Status: mental status grossly normal Mood: congruent mood Affect: normal affect Speech and Movement: speech and movement normal (more content not included)... Normal [facility] Urine cultureOrdered By: Fam Argueta on 05-26-2024 Bacteria identified Cx Nom (U) Positive Abnormal [facility] Inital Evaluation (1) - PTon 05-19-2024 Inital Evaluation (1) - PT [facility] Physical Therapy [facility] [address] [place] [address] / REHABILITATION SERVICES INITIAL EVALUATION MR#: [id number] Acct: [id number] Name: ROSI PINA Rep #: [id number] : 1980 43 From: Edgar Garcia PT, Cert. MD Richards, OCS Referring Dr.: Tasneem Quevedo PA-C Status: REG [facility] Insurance: [facility] [employer]URANCE Patient's Visit Information Visit Information Visit Information: ROSI PINA is a 43 year old F referred to Physical Therapy by Tasneem Quevedo PA-C with a diagnosis of BACK PAIN. Date of Evaluation: 05/19/24 Physical Therapist: Edgar Garcia PT, Cert T, OCS Visit Plan Frequency: 2x /Week Duration: 4 Weeks Plan: PT INTERVENTIONS INITIALLY NANDA EX'S , PROGRESS DLS ,POSTURAL EX'S , POSTURE/BODY MECHANICS ,,ACTIVITY MODIFICATION AND MODALITIES Subjective Subjective: This 43 y/o female presents to physical therapy with back pain with radicular symptoms. Patient developed back pain Jan 2024 driving noticed ache next day developed only right leg symptoms radiating lateral leg. Patient went to Urgent Care with pain injection and prednisone . Patient pain persisted then went to [facility] morphine interjections.Medication ibuprofen. Pain persisted until Mar but show consistent improvement . Aggravating bending ,sitting ,lifting . Alleviating factors walking and standing. Coughing/sneezing-. Bowel/bladder-. Patient pain affects sleeping, Patient initially had paresthesia/tingling but better. Patient had h/o 2021 . Patient had MRI showed HNP lumbar. Patient sees chiropractor. Patient condition affects QOL and function /ADLS and job demands .Patient goals to decrease pain SOCAIL: single HOBBIES: hike VOCATION: unemployed Pain Bilateral Back: Pain Intensity (Out of 10): 3 Pain Intensity Range: 10 Objective Objective: POSTURE: WFL ,decrease lordosis PALAPTION: unremarkable NEURO: denies paresthesia/tingling ,reflexes L3-4,L4-5,L5-S1 2/3 GAIT: reciprocal pattern LUMBAR ROM: flexion mod loss pain .side glides min loss pain,extension mod loss pain MMT: quads/hams 4/5 ,hip flexion 4/5 ,ankle 4/5 Special Tests L/S Slump test left side: Negative L/S Slump test right side: Positive L/S Left Straight Leg Raise: Negative L/S Right Straight Leg Raise: Positive Lumbar Standing: Flexion - Mechanical Response: No effect Lumbar Standing: Flexion - Symptoms During Testing: Increases Lumbar Standing: Flexion - Symptoms After Testing: Worse Lumbar Standing: Extension - Mechanical Response: No effect Lumbar Standing: Extension - Symptoms During Testing: Decreases Lumbar Standing: Extension - Symptoms After Testing: Better Lumbar Standing: Right Side Glides - Mechanical Response: No effect Lumbar Standing: Right Side [place] - Symptoms During Testing: No effect Lumbar Standing: Right Side [place] - Symptoms After Testing: No effect Lumbar Standing: Left Side [place] - Mechanical Response: No effect Lumbar Standing: Left Side [place] - Symptoms During Testing: No effect Lumbar Standing: Left Side [place] - Symptoms After Testing: No effect Lumbar Lying: Flexion - Mechanical Response: No effect Lumbar Lying: Flexion - Symptoms During Testing: Increases Lumbar Lying: Flexion - Symptoms After Testing: No worse Lumbar Lying: Extension - Mechanical Response: No effect Lumbar Lying: Extension - Symptoms During Testing: Decreases Lumbar Lying: Extension - Symptoms After Testing: Better Balance/Special Test Scores Oswestry Low Back Score: 18 Goals Goal 1:: Patient to be I with HEP for back Goal Time Frame: 4-6 Weeks Goal 2:: Patient to improve lumbar ROM for function of recovery for ADLS and putting on shoes Goal Time Frame: 4-6 Weeks Goal 3:: Patient to improve back oswestry score by 5 point to improve QOL and function Goal Time Frame: 4-6 Weeks Goal 4:: Patient to demonstrate 50% improvement with less pain and improve function Goal Time Frame: 4-6 Weeks Goal 5:: Patient be able to manage symptoms with correct posture and body mechanics 90% Goal Time Frame: 4-6 Weeks Rehabilitation Potential Physical Therapy Diagnosis: 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 with pain worse with flexion better with extension and walking increases positioning and motion testing thus benefit from skilled PT Rehabilitation Potential: Good Anticipated Interventions Patient/Client Instruction: Educate patient on: Condition and Plan of Care For the Purpose of:: To decrease pain, To increase ROM, To improve muscle performance and motor function, To improve ability to perform ADL's, To increase tolerance to activity/condition/positi on, To improve ability of physical actions for home/community/work/leisu re, To improve health of tissue, To decrease soft tissue restriction and To increase flexibility/ROM Therapeutic Exercis (more content not included)... Normal [facility] Endocrinology Visit Reporton 04-29-2024 Endocrinology Visit Report [facility] [address] [place] [address] OFFICE VISIT Date of Service: 04/29/24 MR#: [id number] Acct: [id number] Name: ROSI PINA Rep #: [id number] : 1980 Provider: Hyun Smith Age/Sex: 43/F Location: [facility] Status: Signed Intake Vital Signs 01/28/24 11:40 04/29/24 14:32 Height 5 ft 7 in 5 ft 7 in Weight: 161 lb 6 oz BMI 25.2 BP 123/83 H Blood Pressure Location Lt brachial Position Sitting Pulse 86 Pulse Source Monitor Pulse Oximetry (%) 98 Oxygen Delivery Method room air Intake Visit Reasons: 14 M FU Chief Complaint: Annual FU Thyroid Is patient in pain?: No Allergies venlafaxine HCl (From Effexor) Allergy (Verified 04/29/24 14:34) throat swelling Medications ???Medication ???Instructions ???Recorded ???Confirmed ???Type L.acidoph,paracasei,B.ani moisesis 10 1 ea PO DAILY supplement 02/23/20 04/29/24 History billion cell capsule ferrous sulfate 325 mg (65 mg 325 mg PO DAILY supplement 02/23/20 04/29/24 History iron) tablet magnesium 250 mg tablet 250 mg PO DAILY supplement 02/23/20 04/29/24 History multivitamin 1 ea PO DAILY supplement 02/23/20 04/29/24 History omega 5-juj-zdu-fish oil 300 1 ea PO DAILY supplement 02/23/20 04/29/24 History mg-1,000 mg capsule ibuprofen 600 mg tablet 600 mg PO Q6H PRN PRN Pain #30 tabs 03/02/20 04/29/24 Rx rizatriptan 10 mg tablet 5 mg PO .X1 PRN PRN Migraine 03/14/22 04/29/24 History Symptoms hydrocodone-acetaminophen 5-325mg 1 tab PO Q6H PRN PRN Pain 3 days 01/28/24 04/29/24 Rx 5mg-325mg #12 TABLETS levothyroxine 75 mcg tablet 75 mcg PO QDAY #30 tabs 04/29/24 04/29/24 Rx omeprazole 20 mg capsule,delayed 20 mg PO DAILY 04/29/24 History release PFSH Medical History Nodular goiter Christoph's thyroiditis TBI (traumatic brain injury) Adrenal disorder Migraines Normal colonoscopy Constipation Diarrhea Anemia Hx TIA/stroke w/o resid Back problem Thyroid disease Fatigue Surgical History S/P laparoscopic procedure Hx of removal of cyst Hx of oral surgery Hx of knee surgery Family History Father Hypertension Prostate cancer Mother Hypertension Other Anesthesia complication Anxiety Autoimmune disorder Depression Social History Smoking Status: Never smoker second hand exposure: No alcohol intake: current alcohol intake frequency: a few times a month Alcohol type: wine substance use type: does not use caffeine: Yes what type of physical activity do you participate in: walking, running, bicycling and weight training frequency: 5-6 times per week seatbelt use: always HPI HPI Chief Complaint: Annual FU Thyroid Details: ROSI PINA, is a 43 F who presents to the office today for follow up. She lost her job last year and she has been under a lot of stress. She isn't feeling her best. TSH 0.3 She doesn't want to have to cut tablets in half. She is gluten sensitive. ROS Const Constitutional: Positive for fatigue; No weight change ENT ENT: No dizziness/vertigo Cardio Cardiology: No chest pain at rest, chest pain with exertion, shortness of breath or palpitations Skin Skin: No wounds Endo Endocrine: Positive for fatigue; No weight change Exam Const General: cooperative, healthy appearing, comfortable, no acute distress, well developed and not cushingoid Nutritional Appearance: well nourished Orientation: alert, awake and oriented x3 HENMT Head: normal to inspection Ears: hearing grossly normal bilaterally Nose: external nose normal Mouth: oral mucosae normal Eyes General: appearance normal, both eyes and all related structures Alignment and Position: alignment normal Periorbital: periorbital findings normal Eyelids: eyelids normal Conjunctivae: conjunctivae normal Neck Neck mass: No Thyroid: multiple nodules Lymphatic: no lymphadenopathy noted Chest Chest palpation inspection: normal inspection of the chest Resp Effort Inspection: normal respiratory effort, able to speak in complete sentences, symmetric chest movement, no audible wheezes and no cough Auscultation: Bilateral: Clear to Auscultation Cardio Rate: regular rate Rhythm: regular rhythm Skin General: no rashes or lesions noted Neuro General: patient alert, patient awake and patient oriented x3 Cranial Nerves: CN's II-XI intact bilaterally Cognition: normal cognition Speech: speech normal Gait: normal gait Motor: muscle tone normal throughout Extrem General: no edema Psych Appearance: grossly n (more content not included)... Normal [facility] Thyroglobulin w/Anti-TG ABon 04-12-2024 Anti-TG AB 3.5 IU/mL High 0.0-0.9 [facility] Comment on above: Result Comment: Thyr oglobulin Antibody measured by [employer] It should be noted that the presence of thyroglobulin antibodies may not be pathogenic nor diagnostic, especially at very low levels. The assay raking machine operator has found that four percent of individuals without evidence of thyroid disease or autoimmunity will have positive TgAb levels up to 4 IU/mL. Performed By: #### M 100.1423 #### [facility] [place], [address] TG-VIBHA 114 ng/mL High . [facility] Comment on above: Result Comment: Conf irmed by dilution. This test was developed and its performance characteristics determined by [employer]. It has not been cleared or approved by the Food and Drug Administration. Reference Range: Pubertal Children and Adults: <40 According to the National Academy of Clinical Biochemistry, the reference interval for Thyroglobulin (TG) should be related to euthyroid patients and not for patients who underwent thyroidectomy. TG reference intervals for these patients depend on the residual mass of the thyroid tissue left after surgery. Establishing a post-operative baseline is recommended. The assay quantitation limit is 2.0 ng/mL. Performed at: [facility] [id number] Rim Buster: Sachin Louis PhD, Phone: [phone] Performed at: [facility] [address] [place] [id number] Rim Buster: Tung Watson MD, Phone: [phone] Performed By: #### M 100.5388 #### [facility] [address] [place] [address], [id number] DOrdered By: Harish Quevedo on 03-21-2024 Vitamin D 25-Hydroxy 49.8 ng/mL [facility] Comment on above: Vitamin D 25(OH) Sta tus Range Deficiency <20 ng/mL (50nmol/L) Insufficiency 20 - 30 ng/mL (50 - 75 nmol/L) Sufficiency 30 - 100 ng/mL (75 - 250 nmol/L) Toxicity >100 ng/mL (>250 nmol/L) Albumin to globulin ratioOrd ered By: Tasneem Quevedo on 03-21-2024 Albumin/Globulin [Mass ratio] 1.3 {ratio} 0.9-2.4 [facility] Bilirubin, totalOrdered By: Tasneem [place] on 03-21-2024 Bilirubin [Mass/Vol] 0.40 mg/dL 0.20-1.00 [facility] Comment on above: For patients on eltr ombopag therapy, use of Dimension [place] TBIL is not recommended. Blood urea nitrogen (BUN)/cr eatinine ratioOrdered By: Tasneem Quevedo on 03-21-2024 Urea nitrogen/Creatinine [Mass ratio] 17.7 mg/mg 10- [facility] CBC-Complete Blood Cnt No Di ffon 03-21-2024 Erythrocyte distribution width (RBC) [Ratio] 14.8 % High 11.6-14.6 [facility] Comment on above: Performed By: #### L 506.0400, L501.9520, L501.85188, L100.0500, L506.1000, L503.0105, L500.4050, L503.6030, L3300.6820 #### [facility] [address] [place], [address] Hematocrit (Bld) [Volume fraction] 37.0 % Normal 37-47 [facility] Comment on above: Performed By: #### L 506.0400, L501.9520, L501.17277, L100.0500, L506.1000, L503.0105, L500.4050, L503.6030, L3300.6820 #### [facility] [address] [place], [address] Hemoglobin (Bld) [Mass/Vol] 11.8 g/dL Low 12.0-15.0 [facility] Comment on above: Performed By: #### L 506.0400, L501.9520, L501.11638, L100.0500, L506.1000, L503.0105, L500.4050, L503.6030, L3300.6820 #### [facility] [address] [place], [address] MCH (RBC) [Entitic mass] 25.5 pg Low 27.0-32.0 [facility] Comment on above: Performed By: #### L 506.0400, L501.9520, L501.43142, L100.0500, L506.1000, L503.0105, L500.4050, L503.6030, L3300.6820 #### [facility] [address] [place], [address] MCHC (RBC) [Mass/Vol] 31.9 g/dL Low 32-36 [facility] Comment on above: Performed By: #### L 506.0400, L501.9520, L501.35781, L100.0500, L506.1000, L503.0105, L500.4050, L503.6030, L3300.6820 #### [facility] [address] [place], [address] MCV (RBC) [Entitic vol] 80.1 fL Low 81-99 [facility] Comment on above: Performed By: #### L 506.0400, L501.9520, L501.02143, L100.0500, L506.1000, L503.0105, L500.4050, L503.6030, L3300.6820 #### [facility] [address] [place], [address] Platelet mean volume (Bld) [Entitic vol] 9.4 fL Normal 6.2-12.0 [facility] Comment on above: Performed By: #### L 506.0400, L501.9520, L501.10097, L100.0500, L506.1000, L503.0105, L500.4050, L503.6030, L3300.6820 #### [facility] [address] [place], [address] Platelets (Bld) [#/Vol] 257 10*3/uL Normal 150-450 [facility] Comment on above: Performed By: #### L 506.0400, L501.9520, L501.47242, L100.0500, L506.1000, L503.0105, L500.4050, L503.6030, L3300.6820 #### [facility] [address] [place], [address] RBC (Bld) [#/Vol] 4.62 10*6/uL Normal 4.2-5.4 [facility] Comment on above: Performed By: #### L 506.0400, L501.9520, L501.15980, L100.0500, L506.1000, L503.0105, L500.4050, L503.6030, L3300.6820 #### [facility] [address] [place], [address] RDW SD 43.2 fl Normal 35.1-43.9 [facility] Comment on above: Performed By: #### L 506.0400, L501.9520, L501.09240, L100.0500, L506.1000, L503.0105, L500.4050, L503.6030, L3300.6820 #### [facility] [address] [facility] [place], [address] WBC (Bld) [#/Vol] 6.3 10*3/uL Normal 4.4-11.0 [facility] Comment on above: Performed By: #### L 506.0400, L501.9520, L501.44670, L100.0500, L506.1000, L503.0105, L500.4050, L503.6030, L3300.6820 #### [facility] [address] [facility] [place], [address] Carbon dioxide measurementOr dered By: [facility] on 03-21-2024 CO2 [Moles/Vol] 22.0 mmol/L 21.0-32.0 [facility] Chloride measurementOrdered By: [facility] on 03-21-2024 Chloride [Moles/Vol] 105 mmol/L 98-107 [facility] Comprehensive Metabolic Prof ilon 03-21-2024 Albumin [Mass/Vol] 3.9 g/dL Normal 3.2-5.0 [facility] Comment on above: Performed By: #### L 506.0400, L501.9520, L501.17678, L100.0500, L506.1000, L503.0105, L500.4050, L503.6030, L3300.6820 #### [facility] [address] [place], [address] Albumin/Globulin [Mass ratio] 1.3 {ratio} Normal 0.9-2.4 [facility] Comment on above: Performed By: #### L 506.0400, L501.9520, L501.86732, L100.0500, L506.1000, L503.0105, L500.4050, L503.6030, L3300.6820 #### [facility] [address] [place], [address] ALK P 54 U/L Normal 45-117 [facility] Comment on above: Performed By: #### L 506.0400, L501.9520, L501.66445, L100.0500, L506.1000, L503.0105, L500.4050, L503.6030, L3300.6820 #### [facility] [address] [place], [address] ALT [Catalytic activity/Vol] 26 U/L Normal 13-56 [facility] Comment on above: Performed By: #### L 506.0400, L501.9520, L501.85358, L100.0500, L506.1000, L503.0105, L500.4050, L503.6030, L3300.6820 #### [facility] [address] [place], [address] AST [Catalytic activity/Vol] 13 U/L Low 15-37 [facility] Comment on above: Performed By: #### L 506.0400, L501.9520, L501.94176, L100.0500, L506.1000, L503.0105, L500.4050, L503.6030, L3300.6820 #### [facility] [address] [place], [address] Bilirubin [Mass/Vol] 0.40 mg/dL Normal 0.20-1.00 [facility] Comment on above: Result Comment: For patients on eltrombopag therapy, use of Dimension [place] TBIL is not recommended. Performed By: #### L 506.0400, L501.9520, L501.25805, L100.0500, L506.1000, L503.0105, L500.4050, L503.6030, L3300.6820 #### [facility] [address] [place], [address] BUN/CRE 17.7 RATIO Normal 10-20 [facility] Comment on above: Performed By: #### L 506.0400, L501.9520, L501.83939, L100.0500, L506.1000, L503.0105, L500.4050, L503.6030, L3300.6820 #### [facility] [address] [place], [address] CA,Total 8.8 mg/dL Normal 8.5-10.1 [facility] Comment on above: Performed By: #### L 506.0400, L501.9520, L501.55039, L100.0500, L506.1000, L503.0105, L500.4050, L503.6030, L3300.6820 #### [facility] [address] [place], [address] Chloride [Moles/Vol] 105 mmol/L Normal 98-107 [facility] Comment on above: Performed By: #### L 506.0400, L501.9520, L501.28137, L100.0500, L506.1000, L503.0105, L500.4050, L503.6030, L3300.6820 #### [facility] [address] [place], [address] CO2 [Moles/Vol] 22.0 mmol/L Normal 21.0-32.0 [facility] Comment on above: Performed By: #### L 506.0400, L501.9520, L501.74170, L100.0500, L506.1000, L503.0105, L500.4050, L503.6030, L3300.6820 #### [facility] [address] [place], [place], [id number] (241) Creatinine [Mass/Vol] 0.68 mg/dL Normal 0.55-1.02 [facility] Comment on above: Result Comment: The validity of the calculated GFR GFRAA in patients over 70 years has not been determined. Clinical correlation is essential. Performed By: #### L 506.0400, L501.9520, L501.15156, L100.0500, L506.1000, L503.0105, L500.4050, L503.6030, L3300.6820 #### [facility] [address] [place], [place], [id number] (996 EST GFR - AA 123 mL/min Normal >60 [facility] Comment on above: Result Comment: Afri can [place] GFR Calc Performed By: #### L 506.0400, L501.9520, L501.23928, L100.0500, L506.1000, L503.0105, L500.4050, L503.6030, L3300.6820 #### [facility] [address] [place], [place], [id number] (594) GAP 9 Normal 5-15 [facility] Comment on above: Performed By: #### L 506.0400, L501.9520, L501.60957, L100.0500, L506.1000, L503.0105, L500.4050, L503.6030, L3300.6820 #### [facility] [address] [place], [address] GFR/1.73 sq M.predicted among non-blacks MDRD (S/P/Bld) [Vol rate/Area] 102 mL/min/{1.73_m2} Normal >60 [facility] Comment on above: Result Comment: Non- GFR Calc Performed By: #### L 506.0400, L501.9520, L501.29038, L100.0500, L506.1000, L503.0105, L500.4050, L503.6030, L3300.6820 #### [facility] [address] [place], [address] Globulin (S) [Mass/Vol] 2.9 g/dL Normal 2.2-4.2 [facility] Comment on above: Performed By: #### L 506.0400, L501.9520, L501.24438, L100.0500, L506.1000, L503.0105, L500.4050, L503.6030, L3300.6820 #### [facility] [address] [place], [address] Glucose [Mass/Vol] 96 mg/dL Normal 74-106 [facility] Comment on above: Performed By: #### L 506.0400, L501.9520, L501.10803, L100.0500, L506.1000, L503.0105, L500.4050, L503.6030, L3300.6820 #### [facility] [address] [place], [address] Potassium [Moles/Vol] 3.8 mmol/L Normal 3.5-5.1 [facility] Comment on above: Performed By: #### L 506.0400, L501.9520, L501.03639, L100.0500, L506.1000, L503.0105, L500.4050, L503.6030, L3300.6820 #### [facility] [address] [place], [address] Sodium [Moles/Vol] 136 mmol/L Normal 136-145 [facility] Comment on above: Performed By: #### L 506.0400, L501.9520, L501.62636, L100.0500, L506.1000, L503.0105, L500.4050, L503.6030, L3300.6820 #### [facility] [address] [place], [place], [id number] (200) T PROT 6.8 g/dL Normal 6.4-8.2 [facility] Comment on above: Performed By: #### L 506.0400, L501.9520, L501.27937, L100.0500, L506.1000, L503.0105, L500.4050, L503.6030, L3300.6820 #### [facility] [address] [facility] [place], [place], [id number] Urea nitrogen [Mass/Vol] 12 mg/dL Normal 7-18 [facility] Comment on above: Performed By: #### L 506.0400, L501.9520, L501.90949, L100.0500, L506.1000, L503.0105, L500.4050, L503.6030, L3300.6820 #### [facility] [address] [facility] [place], [place], [id number] Direct serum free thyroxine (FT4) measurementOrdered By: [facility] on 03-21-2024 Free T4 [Mass/Vol] 1.30 ng/dL 0.76-1.46 [facility] Erythrocyte distribution wid th ratioOrdered By: [facility] on 03-21-2024 Erythrocyte distribution width (RBC) [Ratio] 14.8 % High 11.6-14.6 [facility] Erythrocyte distribution wid th standard deviationOrdered By: [facility] on 03-21-2024 Erythrocyte distribution width (RBC) [Entitic vol] 43.2 fL 35.1-43.9 [facility] Estimated glomerular filtrat ion rate (GFR) AmericanOrdered By: [facility] on 03-21-2024 Estimated GFR (MDRD) Amer 123 mL/min >60 [facility] Comment on above: GFR Calc Free T3on 03-21-2024 Free T3 [Mass/Vol] 2.7 pg/mL Normal 2.18-3.98 [facility] Comment on above: Performed By: #### L 506.0400, L501.9520, L501.89143, L100.0500, L506.1000, L503.0105, L500.4050, L503.6030, L3300.6820 #### [facility] [address] [place], [address] Free O0Sepnuth By: Tasneem Quevedo on 03-21-2024 Free Triiodothyronine (T3) pg/dL 2.7 pg/mL 2.18-3.98 [facility] Glomerular filtration rate ( GFR) estimationOrdered By: [place]neem [place] on 03-21-2024 Estimated GFR (MDRD) Non-Af Amer 102 mL/min >60 [facility] Comment on above: Non- GFR Calc Glucose measurementOrdered B y: Tasneem [place] on 03-21-2024 Glucose [Mass/Vol] 96 mg/dL 74-106 [facility] Hematocrit Auto (Bld) [Volum e fraction]Ordered By: Tasneem [place] on 03-21-2024 Hematocrit (Bld) [Volume fraction] 37.0 % 37-47 [facility] Hemoglobin measurementOrdere d By: Tasneem [place] on 03-21-2024 Hemoglobin (Bld) [Mass/Vol] 11.8 g/dL Low 12.0-15.0 [facility] Iron (Unsp spec) [Mass/Mass] Ordered By: Tasneem Quevedo on 03-21-2024 Iron [Mass/Vol] 41 ug/dL Low 50-170 [facility] Iron saturation [Mass fracti on]Ordered By: Tasneem [place] on 03-21-2024 Iron Saturation 10.7 % Low 15.0-55.0 [facility] Iron+Iron Binding Capacityon 03-21-2024 Iron [Mass/Vol] 41 ug/dL Low 50-170 [facility] Comment on above: Performed By: #### M 100.2200 #### [facility] [address] [place], [address] IRON SATURATION 10.7 Low 15.0-55.0 [facility] Comment on above: Performed By: #### M 100.2200 #### [facility] [address] [place], [address] TIBC 383 ug/dL Normal 250-450 [facility] Comment on above: Performed By: #### M 100.2200 #### [facility] [address] [place], [address] Laboratory - Chemistry and C hemistry - challengeOrdered By: Tasneem Quevedo on 03-21-2024 AST [Catalytic activity/Vol] 13 U/L Low 15-37 [facility] MCV (mean corpuscular volume ) determinationOrdered By: Tasneem Quevedo on 03-21-2024 MCV (RBC) [Entitic vol] 80.1 fL Low 81-99 [facility] Mean corpuscular hemoglobin (MCH) determinationOrdered By: Tasneem Quevedo on 03-21-2024 MCH (RBC) [Entitic mass] 25.5 pg Low 27.0-32.0 [facility] Mean corpuscular hemoglobin concentration (MCHC) determinationOrdered By: Tasneem Quevedo on 03-21-2024 MCHC (RBC) [Mass/Vol] 31.9 g/dL Low 32-36 [facility] Mean platelet volume determi nationOrdered By: Tasneem Quevedo on 03-21-2024 Platelet mean volume (Bld) [Entitic vol] 9.4 fL 6.2-12.0 [facility] Platelet countOrdered By: Dave Quevedo on 03-21-2024 Platelets (Bld) [#/Vol] 257 10*3/uL 150-450 [facility] Potassium measurementOrdered By: Tasneem Quevedo on 03-21-2024 Potassium [Moles/Vol] 3.8 mmol/L 3.5-5.1 [facility] RBC Auto (Bld) [#/Vol]Ordere d By: Tasneem Quevedo on 03-21-2024 RBC (Bld) [#/Vol] 4.62 10*6/uL 4.2-5.4 [facility] Serum anion gap measurementO rdered By: Tasneem Quevedo on 03-21-2024 Anion gap [Moles/Vol] 9 mmol/L 5-15 [facility] Serum globulin measurementOr dered By: Tasneem Quevedo on 03-21-2024 Globulin (S) [Mass/Vol] 2.9 g/dL 2.2-4.2 [facility] Serum or plasma alanine mcclain otransferase (ALT) measurementOrdered By: Tasneem Quevedo on 03-21-2024 ALT [Catalytic activity/Vol] 26 U/L 13-56 [facility] Serum or plasma albumin coy urement (mass/volume)Ordered By: Tasneem Quevedo on 03-21-2024 Albumin [Mass/Vol] 3.9 g/dL 3.2-5.0 [facility] Serum or plasma alkaline ady sphatase measurementOrdered By: Tasneem Quevedo on 03-21-2024 ALP [Catalytic activity/Vol] 54 U/L 45-117 [facility] Serum or plasma calcium coy urement (mass/volume)Ordered By: Tasneem Quevedo on 03-21-2024 Calcium [Mass/Vol] 8.8 mg/dL 8.5-10.1 [facility] Serum or plasma creatinine m easurement (mass/volume)Ordered By: Tasneem Quevedo on 03-21-2024 Creatinine [Mass/Vol] 0.68 mg/dL 0.55-1.02 [facility] Comment on above: The validity of the calculated GFR & GFRAA in patients over 70 years has not been determined. Clinical correlation is essential. Serum or plasma urea nitroge n measurement (mass/volume)Ordered By: Tasneem Quevedo on 03-21-2024 Urea nitrogen [Mass/Vol] 12 mg/dL 7-18 [facility] Sodium levelOrdered By: Unique Quevedo on 03-21-2024 Sodium [Moles/Vol] 136 mmol/L 136-145 [facility] T4 Free Directon 03-21-2024 T4 FREE DIRECT 1.30 ng/dL Normal 0.76-1.46 [facility] Comment on above: Performed By: #### M 100.2200 #### [facility] [address] [place], [address] TIBCOrdered By: Tasneem tejada on 03-21-2024 Total Iron Binding Capacity 383 ug/dL 250-450 [facility] TSH QnOrdered By: Tasneem Mckeon maria ts on 03-21-2024 Thyroid Stimulating Hormone (TSH) 0.315 uIU/mL Low 0.358-3.[address] [facility] Thyroglobulin Ab VIBHA Qn (S)O rdered By: Tasneem Quevedo on 03-21-2024 Thyroglobulin (VIBHA) 114 ng/mL High . [facility] Comment on above: Confirmed by patsy kang This test was developed and itsperformance characteristics determined by [employer]. It hasnot been cleared or approved by the Food and DrugAdministration.Reference Range:Pubertal Childrenand Adults: <40According to the National Academy of Clinical Biochemistry,the reference interval for Thyroglobulin (TG) should berelated to euthyroid patients and not for patients whounderwent thyroidectomy. TG reference intervals for thesepatients depend on the residual mass of the thyroid tissueleft after surgery. Establishing a post-operative baselineis recommended. The assay quantitation limit is 2.0 ng/mL.Performed at: [facility] [id number] [place], [place] [id number] Director: Sachin Louis PhD, Phone: [phone] at: [facility] [employer] [address] [id number] Director: Tung Watson MD, Phone: [phone] Thyroglobulin Ab serumOrdere d By: Tasneem Quevedo on 03-21-2024 Thyroglobulin Antibody 3.5 IU/mL High 0.0-0.9 [facility] Comment on above: Thyroglobulin Antibo dy measured by [employer] CoulterMethodologyIt should be noted that the presence of thyroglobulinantibodies may not be pathogenic nor diagnostic, especiallyat very low levels. The assay raking machine operator has found thatfour percent of individuals without evidence of thyroiddisease or autoimmunity will have positive TgAb levels upto 4 IU/mL. Thyroid Stim Hormone (TSH)on 03-21-2024 TSH 0.315 uIU/mL Low 0.358-3.[address] [facility] Comment on above: Performed By: #### L 506.0400, L501.9520, L501.20337, L100.0500, L506.1000, L503.0105, L500.4050, L503.6030, L3300.6820 #### [facility] [address] [place], [place], [id number] Total proteinOrdered By: Saritha Quevedo on 03-21-2024 Protein [Mass/Vol] 6.8 g/dL 6.4-8.2 [facility] Vitamin B12on 03-21-2024 Cobalamin (Vitamin B12) [Mass/Vol] 901 pg/mL Normal [facility] Comment on above: Performed By: #### M 100.2200 #### [facility] [address] [place], [place], [id number] Vitamin B12 measurementOrder ed By: Tasneem Quevedo on 03-21-2024 Cobalamin (Vitamin B12) [Mass/Vol] 901 pg/mL -911 [facility] Vitamin D,25 Hydroxyon 03-21 Vitamin D 25-OH 49.8 ng/mL Normal [facility] Comment on above: Result Comment: Lois min D 25(OH) Status Range Deficiency <20 ng/mL (50nmol/L) Insufficiency 20 - 30 ng/mL (50 - 75 nmol/L) Sufficiency 30 - 100 ng/mL (75 - 250 nmol/L) Toxicity >100 ng/mL (>250 nmol/L) Performed By: #### M 100.2200 #### [facility] [address] [facility] [place], [place], [id number] White blood cell (WBC) count Ordered By: Tasneem Quevedo on 03-21-2024 WBC (Bld) [#/Vol] 6.3 10*3/uL 4.4-11.0 [facility] Emergency Department Summary on 01-28-2024 Emergency Department Summary [facility] Medical Records Department [address] [place] [address] Emergency Department Summary 01/28/24 MR#: [id number] Acct: [id number] Name: ROSI PINA Rep #: [id number] : 1980 43 From: Jonn Nash MD PCP: Tasneem Quevedo PA-C Status:REG ER Location: ED HPI History of Present Illness Chief Complaint: Back Informant: patient Narrative Narrative: Healthy 43-year-old female states she started having pain in her low back about a week ago coinciding with sleeping on an uncomfortable mattress icon that she was staying at in [place]. Pain has become worse, it is worse with certain positions and better with others, and she started having tingling in her right flores into the top of her right foot as well as some weakness that she noticed when she was going up and down stairs feeling like her leg was going to give out. The pain also radiates into her left lateral gluteus area but without neurologic symptoms in her left lower extremity or bowel or bladder dysfunction or saddle anesthesia. She thinks she may have had a ruptured or bulging disc a few years ago, she did not have an MRI but she was treated with physical therapy and it got better and went away. Prior similar symptoms: Yes and With Prior Back Pain PFSH PFS Medical History Nodular goiter Christoph's thyroiditis TBI (traumatic brain injury) Adrenal disorder Migraines Normal colonoscopy Constipation Diarrhea Anemia Hx TIA/stroke w/o resid Back problem Thyroid disease Fatigue Home Medications ???Medication ???Instructions ???Recorded ???Last Taken ???Type L.acidoph, paracasei,B. lactis 10 1 ea PO DAILY supplement 02/23/20 Unknown History billion cell capsule ferrous sulfate 325 mg (65 mg 325 mg PO DAILY supplement 02/23/20 Unknown History iron) tablet magnesium 250 mg tablet 250 mg PO DAILY supplement 02/23/20 Unknown History multivitamin 1 ea PO DAILY supplement 02/23/20 Unknown History omega 5-rvp-kdv-fish oil 300 1 ea PO DAILY supplement 02/23/20 Unknown History mg-1,000 mg capsule ibuprofen 600 mg tablet 600 mg PO Q6H PRN PRN Pain #30 tabs 03/02/20 Unknown Rx rizatriptan 10 mg tablet 5 mg PO .X1 PRN PRN Migraine 03/14/22 Unknown History Symptoms omeprazole 20 mg capsule,delayed 20 mg PO DAILY #30 CAPSULES 09/05/22 Unknown Rx release ondansetron 4 mg disintegrating 4 mg PO Q8H PRN PRN Nausea #10 tabs 09/05/22 Unknown Rx tablet levothyroxine 88 mcg tablet 88 mcg PO DAILY #90 tabs 02/26/23 Unknown Rx hydrocodone-acetaminophen 5-325mg 1 tab PO Q6H PRN PRN Pain 3 days 01/28/24 Unknown Rx 5mg-325mg #12 TABLETS Allergy/AdvReac Type Severity Reaction Status Date / Time venlafaxine HCl (From Allergy throat Verified 01/28/24 11:40 Effexor) swelling Family History Father Hypertension Prostate cancer Mother Hypertension Other Anesthesia complication Anxiety Autoimmune disorder Depression Surgical History Hx of knee surgery Hx of oral surgery Hx of removal of cyst S/P laparoscopic procedure Social History Smoking Status: Never smoker second hand exposure: No alcohol intake: current alcohol intake frequency: a few times a month Alcohol type: wine substance use type: does not use caffeine: Yes what type of physical activity do you participate in: walking, running, bicycling and weight training frequency: 5-6 times per week seatbelt use: always ROS ROS ED Constitutional Constitutional ED: Denies chills or fever(s) Gastrointestinal Gastrointestinal: Denies abdominal pain, constipation, fecal incontinence, nausea or vomiting Genitourinary Genitourinary ED: Reports other Details: no urinary retention ; Denies abdominal discomfort or urinary incontinence Musculoskeletal Musculoskeletal: Reports as per HPI and back pain; Denies neck pain Integumentary Denies rash or wounds Neurologic Neurologic: Reports paresthesias RLE and weakness; Denies headache(s) EXAM Physical Exam Const Vital Signs: 01/28/24 11:40 Temperature 96.5 F L Temperature Source Temporal Pulse Rate 83 Respiratory Rate 16 Blood Pressure 154/91 H Blood Pressure Mean 112 Pulse Ox 100 Oxygen Delivery Method Room Air Positive well nourished and well developed General Appearance ED: well developed and NAD HEENT Negative for trauma or tenderness Eyes PERRL and EOMs intact bilaterally Neck full ROM and supple GI normal to inspection, nondistended, normoactive bowel sounds, soft to palpation and non-tender Back/Spine normal to inspection General Back: Negative for CVA te (more content not included)... Normal [facility] Absolute lymphocyte countOrd ered By: He Lawton on 08-06-2023 Lymphocytes Auto (Unsp spec) [#/Vol] 1.06 10*3/uL 0.83-4.51 [facility] Automated lymphocyte count a s percentage of total leukocytesOrdered By: He Lawton on 08-06-2023 Lymphocytes/100 WBC Auto (Unsp spec) 14.8 % 19-41 [facility] Basophil percentageOrdered B y: He Lawton on 08-06-2023 Basophils/100 WBC (Bld) 0.6 % 0-1 [facility] Eosinophils/100 WBC (Bld) 2.1 % 0-5 [facility] Hemoglobin (Bld) [Mass/Vol] 12.7 g/dL 12.0-15.0 [facility] Monocytes/100 WBC (Bld) 5.3 % 0-10 [facility] Neutrophils (Bld) [#/Vol] 5.5 10*3/uL 2.0-7.7 [facility] Neutrophils/100 WBC (Bld) 77.1 % 47-70 [facility] WBC (Bld) [#/Vol] 7.2 10*3/uL 4.4-11.0 [facility] Bilirubin [Mass/Vol] 0.40 mg/dL 0.20-1.00 [facility] Comment on above: For patients on eltr ombopag therapy, use of Dimension [place] TBIL is not recommended. Chloride [Moles/Vol] 108 mmol/L 98-107 [facility] Glucose [Mass/Vol] 97 mg/dL 74-106 [facility] Potassium [Moles/Vol] 3.5 mmol/L 3.5-5.1 [facility] Protein [Mass/Vol] 7.3 g/dL 6.4-8.2 [facility] Sodium [Moles/Vol] 140 mmol/L 136-145 [facility] Determination of erythrocyte mean corpuscular volume (MCV)Ordered By: He Lawton on 08-06-2023 MCV (RBC) [Entitic vol] 81.0 fL 81-99 [facility] Erythrocyte distribution wid th ratioOrdered By: He Lawton on 08-06-2023 Erythrocyte distribution width (RBC) [Ratio] 13.7 % 11.6-14.6 [facility] Erythrocyte distribution wid th standard deviationOrdered By: He Lawton on 08-06-2023 Erythrocyte distribution width (RBC) [Entitic vol] 40.6 fL 35.1-43.9 [facility] Hematocrit Auto (Bld) [Volum e fraction]Ordered By: He Lawton on 08-06-2023 Hematocrit (Bld) [Volume fraction] 39.2 % 37-47 [facility] Immature granulocytes/100 WB C Auto (Bld)Ordered By: He Lawton on 08-06-2023 Immature granulocytes/100 WBC (Bld) 0.100 % 0.0-0.9 [facility] Comment on above: IG% - Immature Granu locytes (promyelocytes, myelocytes and metamyelocytes) > 1% indicates that a LEFT SHIFT is Present. Iron measurement (mass/mass) Ordered By: He Lawton on 08-06-2023 Iron (Unsp spec) [Mass/Mass] 42 ug/dL 50-170 [facility] - Chemistry and C hemistry - challengeOrdered By: He Lawton on 08-06-2023 Cobalamin (Vitamin B12) [Mass/Vol] 1161 pg/mL 211-911 [facility] Albumin/Globulin [Mass ratio] 1.1 {ratio} 0.9-2.4 [facility] ALP [Catalytic activity/Vol] 58 U/L 45-117 [facility] ALT [Catalytic activity/Vol] 21 U/L 13-56 [facility] CO2 [Moles/Vol] 27.0 mmol/L 21.0-32.0 [facility] Globulin (S) [Mass/Vol] 3.5 g/dL 2.2-4.2 [facility] Urea nitrogen/Creatinine [Mass ratio] 21.9 mg/mg 10-20 [facility] - Hematology and Cell countsOrdered By: He Lawton on 08-06-2023 MCH (RBC) [Entitic mass] 26.2 pg 27.0-32.0 [facility] MCHC (RBC) [Mass/Vol] 32.4 g/dL 32-36 [facility] Nucleated RBC/100 WBC (Bld) [Ratio] 0 % 0-5 [facility] Platelet mean volume (Bld) [Entitic vol] 9.7 fL 6.2-12.0 [facility] Platelets (Bld) [#/Vol] 243 10*3/uL 150-450 [facility] No Panel InformationOrdered By: He Lawton on 08-06-2023 Thyroglobulin Antibody 2.7 IU/mL 0.0-0.9 [facility] Comment on above: Thyroglobulin Antibo dy measured by [employer] CoulterMethodologyIt should be noted that the presence of thyroglobulinantibodies may not be pathogenic nor diagnostic, especiallyat very low levels. The assay raking machine operator has found thatfour percent of individuals without evidence of thyroiddisease or autoimmunity will have positive TgAb levels upto 4 IU/mL.Performed at: [facility] Director: Sachin Louis PhD, Phone: [phone] Vitamin D 25-Hydroxy 59.8 ng/mL [facility] Comment on above: Vitamin D 25(OH) Sta tus Range Deficiency <20 ng/mL (50nmol/L) Insufficiency 20 - 30 ng/mL (50 - 75 nmol/L) Sufficiency 30 - 100 ng/mL (75 - 250 nmol/L) Toxicity >100 ng/mL (>250 nmol/L) Estimated GFR (MDRD) Amer 132 mL/min >60 [facility] Comment on above: GFR Calc Estimated GFR (MDRD) Non-Af Amer 109 mL/min >60 [facility] Comment on above: Non- GFR Calc Free Triiodothyronine (T3) pg/dL 2.4 pg/mL 2.18-3.98 [facility] Total Iron Binding Capacity 322 ug/dL 250-450 [facility] RBC Auto (Bld) [#/Vol]Ordere d By: He Lawton on 08-06-2023 RBC (Bld) [#/Vol] 4.84 10*6/uL 4.2-5.4 [facility] Serum or plasma calcium coy urement (mass/volume)Ordered By: He Lawton on 08-06-2023 Calcium [Mass/Vol] 8.7 mg/dL 8.5-10.1 [facility] Serum or plasma creatinine m easurement (mass/volume)Ordered By: He Lawton on 08-06-2023 Creatinine [Mass/Vol] 0.64 mg/dL 0.55-1.02 [facility] Comment on above: The validity of the calculated GFR & GFRAA in patients over 70 years has not been determined. Clinical correlation is essential. Serum or plasma iron saturat ion measurement (mass fraction)Ordered By: He Lawton on 08-06-2023 Iron saturation [Mass fraction] 13.0 % 15.0-55.0 [facility] Serum or plasma thyroid stim ulating hormone (TSH) measurement (units/volume)Ordered By: He Lawton on 08-06-2023 TSH Qn 1.77 uIU/mL 0.358-3.74 [facility] Serum or plasma urea nitroge n measurement (mass/volume)Ordered By: He Lawton on 08-06-2023 Urea nitrogen [Mass/Vol] 14 mg/dL 7-18 [facility] Thin prep Papanicolaou smear with manual screeningOrdered By: He Lawton on 08-06-2023 Thin prep Papanicolaou smear with manual screening 3.8 g/dL 3.2-5.0 [facility] Thin prep Papanicolaou smear with manual screening 14 U/L 15-37 [facility] Thin prep Papanicolaou smear with manual screening 5 5-15 [facility] Thin prep Papanicolaou smear with manual screening 1.11 ng/dL 0.76-1.46 [facility] T4-FREE (FREE THYROXINE)on 0 05-14-2023 T4-FREE (FREE THYROXINE) Normal [facility] Comment on above: Result Comment: SEE SCANNED REPORT Performed By: #### 2 [id number] #### [facility],[address] [place] [address] THYROGLOBULIN AB [CCL]on THYROGLOBULIN AB [CCL] Normal [facility] Comment on above: Result Comment: _THY ROGLOBULIN AB [CCL]_ SEE SCANNED REPORT Performed By: #### 2 89964 #### [facility],[address] [place] [address] TSHon 05-14-2023 TSH Normal [facility] Comment on above: Result Comment: SEE SCANNED REPORT Performed By: #### 2 76982 #### [facility],[address] [place] [address]67 VITAMIN B-12on 05-14-2023 VITAMIN B-12 Normal [facility] Comment on above: Result Comment: SEE SCANNED REPORT Performed By: #### 2 11015 #### [facility],[address] [place] [address] T3, FREE [CCL]on 05-11-2023 Free T3 [Mass/Vol] 2.9 pg/mL Normal 2.3-4.1 [facility] Comment on above: Result Comment: [facility] [address] [place] [address] Sameer Pearce III, M.D. [id number] Performed By: #### 2 21225 #### [facility],[address] [place] [address]3341 CBC + DIFFon 05-10-2023 Baso # 0.10 x10EE3/UL Normal 0.00 - 0.10 [facility] Comment on above: Performed By: #### 2 43906 #### [facility],[address] [place] [address]64 Basophils/100 WBC (Bld) 0.9 % Normal 0.0 - 2.0 [facility] Comment on above: Performed By: #### 2 60931 #### [facility],[address] [place] [address]446 CBC + DIFF Normal [facility] Comment on above: Result Comment: CBC- COMPLETE BLOOD COUNT Performed By: #### 2 98960 #### [place] [address] EO # 0.10 x10EE3/UL Normal 0.00 - 0.50 [facility] Comment on above: Performed By: #### 2 33747 #### [place] [address] Eosinophils/100 WBC (Bld) 1.2 % Normal 0.0 - 7.0 [facility] Comment on above: Performed By: #### 2 97428 #### [place] [address] Erythrocyte distribution width (RBC) [Ratio] 13.8 % Normal 12.0 - 15.6 [facility] Comment on above: Performed By: #### 2 40913 #### [place] [address] Hematocrit (Bld) [Volume fraction] 34.6 % Normal 34.0 - 46.0 [facility] Comment on above: Performed By: #### 2 09681 #### [place] [address] Hemoglobin (Bld) [Mass/Vol] 11.5 g/dL Low 12.0 - 16.0 [facility] Comment on above: Performed By: #### 2 14145 #### [place] [id number] Lymph # 1.20 x10EE3/UL Normal 0.80 - 2.80 [facility] Comment on above: Performed By: #### 2 09257 #### [place] [address] Lymphocytes/100 WBC (Bld) 20.1 % Normal 20.0 - 45.0 [facility] Comment on above: Performed By: #### 2 86787 #### [address],[place] [address] MANUAL DIFF N/A Normal [facility] Comment on above: Performed By: #### 2 06006 #### [facility],[address] [place] [address] MCH (RBC) [Entitic mass] 27 pg Normal 27 - 33 [facility] Comment on above: Performed By: #### 2 13794 #### [facility],[address] [place] [address] MCHC 33 X10 3 Normal 32 - 36 [facility] Comment on above: Performed By: #### 2 12585 #### [place] [address] MCV (RBC) [Entitic vol] 80 fL Normal 80 - 99 [facility] Comment on above: Performed By: #### 2 69049 #### [facility],[address] [place] [address] [place] # 0.50 x10EE3/UL Normal 0.20 - 1.00 [facility] Comment on above: Performed By: #### 2 94277 #### [place] [address] MONOS % 7.7 % Normal 0.0 - 10.0 [facility] Comment on above: Performed By: #### 2 32156 #### [facility],[address] [place] [address] Morphology Daniel (Bld) [Interp] N/A Normal [facility] Comment on above: Result Comment: {CD] Performed By: #### 2 83699 #### [place] [address] Neut # 4.30 x10EE3/UL Normal 1.50 - 7.10 [facility] Comment on above: Performed By: #### 2 12237 #### [place] [address] Neutrophils/100 WBC (Bld) 70.1 % Normal 46.0 - 76.0 [facility] Comment on above: Performed By: #### 2 59152 #### [facility],[address] [place] [address] PLATELET 289 x10EE3/UL Normal 150 - 450 [facility] Comment on above: Performed By: #### 2 85229 #### [facility],[address] [place] [address]17 Platelet mean volume (Bld) [Entitic vol] 7.5 fL Normal 6.6 - 10.5 [facility] Comment on above: Result Comment: AUTO MATED DIFFERENTIAL Performed By: #### 2 49666 #### [facility],[address] [place] [address]17 RBC 4.30 x 10EE6/UL Normal 4.10 - 5.30 [facility] Comment on above: Performed By: #### 2 24994 #### [facility],[address] [place] [address]9701 WBC 6.1 x 10EE3/UL Normal 4.5 - 10.8 [facility] Comment on above: Performed By: #### 2 41735 #### [facility],[address] [place] [address] 15290 CMP with eGFRon 05-10-2023 AGE 42 years Normal [facility] Comment on above: Performed By: #### 2 12333 #### [facility],[address] [place] [address] 63898 Albumin [Mass/Vol] 3.5 g/dL Normal 3.4 - 5.0 [facility] Comment on above: Performed By: #### 2 40661 #### [facility],[address] [place] [address] 95945 Albumin/Globulin [Mass ratio] 1.0 {ratio} Normal 0.9 - 1.6 [facility] Comment on above: Performed By: #### 2 52254 #### [facility],[address] [place] [address] 06090 ALK PHOS 60 U/L Normal 46 - 116 [facility] Comment on above: Performed By: #### 2 69164 #### [facility],[address] [place] [address] 26886 ALT [Catalytic activity/Vol] 30 U/L Normal 14 - 59 [facility] Comment on above: Performed By: #### 2 07523 #### [facility],[address] [place] [address]336 Anion gap [Moles/Vol] 14 mmol/L Normal 10 - 20 [facility] Comment on above: Performed By: #### 2 66138 #### [facility],[address] [place] [address] 44034 AST [Catalytic activity/Vol] 11 U/L Low 13 - 39 [facility] Comment on above: Performed By: #### 2 83351 #### [facility],[address] [place] [address] 28280 B/C RATIO 22 ratio Normal 0 - 30 [facility] Comment on above: Performed By: #### 2 37184 #### [facility],[address] [place] [address] 69469 Bilirubin [Mass/Vol] 0.3 mg/dL Normal 0.2 - 1.0 [facility] Comment on above: Performed By: #### 2 26056 #### [facility],[address] [place] [address] 23783 Calcium [Mass/Vol] 9.2 mg/dL Normal 8.5 - 10.1 [facility] Comment on above: Performed By: #### 2 78906 #### [facility],[address] [place] [address]5948 Chloride [Moles/Vol] 104 mmol/L Normal 98 - 107 [facility] Comment on above: Performed By: #### 2 44296 #### [facility],[address] [place] [address] 17162 CMP with eGFR Normal [facility] Comment on above: Result Comment: COMP REHENSIVE METABOLIC PANEL Performed By: #### 2 58020 #### [facility],[address] [place] [address]010 CO2 [Moles/Vol] 25.6 mmol/L Normal 21.0 - 32.0 [facility] Comment on above: Performed By: #### 2 60606 #### [facility],[address] [place] [address] 00761 Creatinine [Mass/Vol] 0.59 mg/dL Normal 0.55 - 1.02 [facility] Comment on above: Performed By: #### 2 58417 #### [facility],[address] [place] [address] 05114 GFR/1.73 sq M.predicted among non-blacks MDRD (S/P/Bld) [Vol rate/Area] mL/min/{1.73_m2} Normal 60 - 999 [facility] Comment on above: Performed By: #### 2 15156 #### [facility],[address] [place], [place] [id number] Result Comment: ACCO RDING TO THE NATIONAL KIDNEY DISEASE EDUCATION PROGRAM(NKDE), A NORMAL eGFR IS A VALUE GREATER THAN OR EQUAL TO 60 ML/MIN/1.73 SQ METERS. CHRONIC KIDNEY DISEASE: <60mL/MIN/1.73 SQ METERS KIDNEY FAILURE: <15mL/MIN/1.73 SQ METERS THIS TEST SHOULD ONLY BE USED FOR PATIENTS 18 YEARS OF AGE AND OLDER. Globulin (S) [Mass/Vol] 3.4 g/dL Normal 1.5 - 3.8 [facility] Comment on above: Performed By: #### 2 37269 #### [facility],[address] [place] [address] 10139 Glucose [Mass/Vol] 79 mg/dL Normal 74 - 106 [facility] Comment on above: Performed By: #### 2 86430 #### [facility],[address] [place] [address] 20893 Potassium [Moles/Vol] 3.7 mmol/L Normal 3.5 - 5.1 [facility] Comment on above: Performed By: #### 2 19098 #### [facility],[address] [place] [address] 32378 Protein [Mass/Vol] 6.9 g/dL Normal 6.4 - 8.2 [facility] Comment on above: Performed By: #### 2 49042 #### [facility],[address] [place] [address] 58374 Sodium [Moles/Vol] 140 mmol/L Normal 136 - 145 [facility] Comment on above: Performed By: #### 2 40699 #### [facility],[address] [place] [address] 26610 Urea nitrogen [Mass/Vol] 13 mg/dL Normal 7 - 18 [facility] Comment on above: Performed By: #### 2 69627 #### [facility],[address] [place] [address] 63519 Iron and Iron binding capaci ty panelon 05-10-2023 Iron [Mass/Vol] 31 ug/dL Low 41-186 [facility] Comment on above: Order Comment: Speci men Type: BLOOD SPECIMEN Ordering Facility: [facility] Address: [address] [place] [address] Performed By: #### 5 0190-8, 3023-10, 2131-12, 3015-06 #### [facility] CLIA [id number] [address] [place] [address] [place] Iron binding capacity [Mass/Vol] 336 ug/dL Normal 232-386 [facility] Comment on above: Order Comment: Speci men Type: BLOOD SPECIMEN Ordering Facility: [facility] Address: [address] [place] [address] Performed By: #### 5 0190-8, 3023-10, 2131-12, 3016-3 #### [facility] CLIA [id number] [address] [place] [id number] [place] Iron/TIBC [Molar ratio] 9.2 % Low 15.0-57.0 [facility] Comment on above: Order Comment: Jason smith Type: BLOOD SPECIMEN Ordering Facility: [facility] Address: [facility] [place] [address] Performed By: #### 5 0190-8, 3024-7, 9, 6-3 #### [facility] CLIA [id number] [address] [place] [id number] [place] T4 Free SerPl-mCncon 024 Free T4 [Mass/Vol] 1.4 ng/dL Normal 0.9-1.7 [facility] Comment on above: Order Comment: Jason smith Type: BLOOD SPECIMEN Ordering Facility: [facility] Address[facility] [place] [address] Performed By: #### 5 0190-8, 4-7, 9, 6-3 #### [facility] CLIA [id number] [address] [place] [address] [place] TSH SerPl-aCncon 05-10-2023 TSH Qn 0.953 m[IU]/L Normal 0.270-4.20 0 [facility] Comment on above: Order Comment: Jason smith Type: BLOOD SPECIMEN Ordering Facility: [facility] Address: [address] [place] [address] Result Comment: If t he patient is , TSH reference range varies by gestational period: First Trimester (weeks 9-12): 0.180-2.990 mIU/L Second Trimester: 0.110-3.980 mIU/L Third Trimester: 0.480-4.710 mIU/L [employer] et al. A Practical Approach for the Verifications and Determination of Site- and Trimester-Specific Reference Intervals for Thyroid Function tests in . Thyroid, 2019:29:3:412-420. Mitul E, et al. 2017 Guidelines of the [place] Thyroid [employer] for the Diagnosis and Management of Thyroid Disease during and the . Thyroid, 2017:27:3:315-389. Performed By: #### 5 0190-8, 3023-7, 2131-12, 6-3 #### [facility] CLIA [id number] [address] [address] [place] VITAMIN D, 25 HYDROXYon - VitD 59.10 ng/mL Normal 30.00 - 100 [facility] Comment on above: Result Comment: 25-O HD3 indicates both endogenous production and supplementation. 25-OHD2 is an indicator of exogenous sources, such as diet or supplementation. Therapy is based on measurement of Total 25-OHD, with levels <20 ng/mL indicative of Vitamin D deficiency, while levels between 20 ng/mL and 30 ng/mL suggest insufficiency. Optimal levels are >=30ng/mL. Vitamin D, 25-OH D3 Not Established Vitamin D, 25-OH D2 Not Established Performed By: #### 2 60208 #### [facility],[address] [place] [address] 71175 Vit B12 [facility] 024 Cobalamin (Vitamin B12) [Mass/Vol] 937 pg/mL Normal 232-1245 [facility] Comment on above: Order Comment: Speci men Type: BLOOD SPECIMEN Ordering Facility: [facility] Address: [address] [place], [place] [address] Performed By: #### 5 0190-8, 3023-10, 2131-12, 3 #### [facility] CLIA [id number] [facility] [address] [address] [place] Laboratory - Chemistry and C hemistry - challengeOrdered By: He Lawton on 02-22-2023 Free T4 [Mass/Vol] 1.07 ng/dL 0.76-1.46 [facility] No Panel InformationOrdered By: He Lawton on 02-22-2023 Thyroid Stimulating Hormone (TSH) 1.09 uIU/mL 0.358-3.74 [facility] NM HIDA SCANon 09-26-2022 NM HIDA SCAN [address] [address] Patient: ROSI PINA Phone#: : 1980 Age: 41 Gender: F Pt. Type: Out Account: [id number] Location: Ordering: [facility] Exam Date: 09/26/2022/11:24 Family Phys: Charge Code: [id number] Physician: Burke Order #: [id number] Dose#: PROCEDURE: HIDA SCAN COMPARISON: None. INDICATIONS: Abdominal pain TECHNIQUE: Informed consent was obtained. A routine radionuclide hepatobiliary scan was performed after intravenous injection of 7.6 mCi Tc Choletec with sequential acquisitions every 5 minutes for one hour. Then, a repeat hepatobiliary scan with gallbladder ejection fraction analysis was performed oral administration of 8 ounces ensure plus. Biliary imaging was again performed with sequential imaging performed immediately and at 60 minutes, followed by computer quantitative ejection fraction analysis. PHARMACEUTICAL(S): Tc-99m JODIE derivative (see dose listed above). Cholecystokinin (Kinevac ) (see dose listed above). FINDINGS: BILIARY DUCTS: Normal radioisotopic biliary excretion. GALLBLADDER: Normal with no evidence of cystic duct obstruction. INTESTINE: Normal with no evidence of common biliary ductal obstruction. EJECTION FRACTION: 54 % at 60 minutes. (Normal EF > 35%). OTHER: Negative. CONCLUSION: 1. Normal HIDA scan. 2. Ejection fraction is 54%. Dictated by: Esme Duff MD on 09/26/2022 at 14:01 Approved by: Esme Duff MD on 09/26/2022 at 14:03 Normal [facility] US RUQ (GB/PANCREAS)on 09-14 US RUQ (GB/PANCREAS) [address] [address] Patient: ROSI PINA Phone#: : 1980 Age: 41 Gender: F Pt. Type: Out Account: [id number] Location: Ordering: TASNEEM QUEVEDO Exam Date: 09/14/2022/8:17 Family Phys: Charge Code: [id number] Physician: Burke Order #: [id number] Dose#: PROCEDURE: RUQ (GB) ULTRASOUND COMPARISON: None. INDICATIONS: Right sided pain FINDINGS: LIVER: There is a cyst in the right lobe of the liver measuring 0.6 x 0.7 x 0.9 cm. Normal size and echotexture. No significant masses. BILIARY: Minimal sludge in the gallbladder. Normal appearing gallbladder and biliary tree. Common bile duct diameter 3 mm. Gallbladder wall measures 0.2 cm in thickness PANCREAS: Visualized portion is unremarkable RIGHT KIDNEY: Normal renal parenchymal echogenicity. No hydronephrosis. OTHER: Negative. CONCLUSION: 1. Minimal sludge in the gallbladder. Otherwise unremarkable right upper quadrant ultrasound DICTATED BY: GERMAN GARCIA MD ON 09/14/2022 AT 9:37 APPROVED BY: GERMAN GARCIA MD ON 09/14/2022 AT 9:41 Normal [facility] GC/CHLAM AMPLIFICATION URINE [CCL]on 09-08-2022 GC Amplification See Below Normal Negative for Neisseria go [facility] Comment on above: Result Comment: GC A MPLIFICATION Negative for Neisseria gonorrhoeae by amplification CHLAMYDIA AMPLIFICATION Negative for Chlamydia trachomatis by amplification For screening asymptomatic women, a vaginal swab specimen(APTIMA vaginal swab 537598) is optimal. Urine specimens have reduced sensitivity for Chlamydia trachomatis or Neisseria gonorrhoeae infection in female patients without symptoms. SOURCE: [place] [address] Sameer Pearce III, M.D. [id number] Performed By: #### 2 20410 #### [facility],[address] [place] [address] Laboratory - Chemistry and C hemistry - challengeOrdered By: Dr. Lawton on 05-15-2022 Free T4 [Mass/Vol] 1.26 ng/dL 0.76-1.46 [facility] No Panel InformationOrdered By: Dr. Lawton on 05-15-2022 Thyroid Stimulating Hormone (TSH) 0.33 uIU/mL 0.358-3.74 [facility] No Panel Informationon 12-07 Thyroid Stimulating Hormone (TSH) 1.75 uIU/mL 0.358-3.74 [facility] Work Phone: THINPREP PAP AND HPV mRNA E6 /E7on 09-17-2019 CLINICAL INFORMATION: Normal [facility] Comment on above: Result Comment: Rout ine exam Performed By: #### 9 0931 #### [facility]-[address], [address] [place] [address] High Speed Operator: Costa Ngo MD COMMENT Normal [facility] Comment on above: Result Comment: EXPL ANATORY NOTE: The Pap is a screening test for cervical cancer. It is not a diagnostic test and is subject to false negative and false positive results. It is most reliable when a satisfactory sample, regularly obtained, is submitted with relevant clinical findings and history, and when the Pap result is evaluated along with historic and current clinical information. Performed By: #### 9 0931 #### [facility] [address] High Speed Operator: Costa Ngo MD SILO PAINTER: Normal [facility] Comment on above: Result Comment: BH, CT(ASCP) CT screening location: [place] [address]. Performed By: #### 9 0931 #### [facility] [address] High Speed Operator: Costa Ngo MD INTERPRETATION/RESULT: Normal [facility] Comment on above: Result Comment: Nega tive for intraepithelial lesion or malignancy. Performed By: #### 9 0931 #### [facility] [address] High Speed Operator: Costa Ngo MD LMP: 09/03/2019 Normal [facility] Comment on above: Performed By: #### 9 0931 #### [facility]-[address], [address] [place] [address] High Speed Operator: Costa Ngo MD Platelet mean volume (Bld) [Entitic vol] Not Detected Normal Not Detected [facility] Comment on above: Result Comment: This test was performed using the APTIMA HPV Assay ([employer] This assay detects E6/E7 viral messenger RNA (mRNA) from 14 high-risk HPV types (16,18,31,33,35,39,45,51,52,56,58,59,66,68). The analytical performance characteristics of this assay have been determined by [facility]. The modifications have not been cleared or approved by the FDA. This assay has been validated pursuant to the CLIA regulations and is used for clinical purposes. Performed By: #### 9 0931 #### [facility] [address] High Speed Operator: Costa Ngo MD PREV. BX: None given Normal [facility] Comment on above: Performed By: #### 9 0931 #### [facility] [address] High Speed Operator: Costa Ngo MD PREV. PAP: None given Normal [facility] Comment on above: Performed By: #### 9 0931 #### [facility] [address] High Speed Operator: Costa Ngo MD SOURCE: Cervix Normal [facility] Comment on above: Performed By: #### 9 0931 #### [facility] [address] High Speed Operator: Costa Ngo MD STATEMENT OF ADEQUACY: Normal [facility] Comment on above: Result Comment: Sati sfactory for evaluation. Endocervical/transformation zone component absent. Performed By: #### 9 0931 #### [facility] [address] High Speed Operator: Costa Ngo MD TPO Antibodyon 01-24-2019 TPO Antibody 150.2 IU/mL High <5.6 [facility] Comment on above: Performed By: #### M ICRO #### [facility] Routine Lab [address] [place], [place] [address] Office Visit: evaluation rig ht breast painon 02-28-2017 Documentation of current medications (procedure) Done Invalid Interpretation Code [facility] Work Phone: [phone] Fall risk assessment No Invalid Interpretation Code [facility] Work Phone: [phone] Tobacco smoking status NHIS Never Invalid Interpretation Code [facility] Work Phone: [phone] Tobacco smoking status NHIS Tobacco smoking status NHIS Invalid Interpretation Code [facility] Work Phone: [phone] Office Visit: right breast p ainon 01-02-2017 Documentation of current medications (procedure) Done Invalid Interpretation Code [facility] Work Phone: Fall risk assessment No Invalid Interpretation Code [facility] Work Phone: Protein mass conc Done [facility] Work Phone: Tobacco smoking status NHIS Never Invalid Interpretation Code [facility] Work Phone: Tobacco smoking status NHIS Never smoker [facility] Work Phone: Tobacco use HS Never smoker Invalid Interpretation Code [facility] Work Phone: Vital Signs Date Time Vital Sign Value Performing Clinician Facility 05-26-2024 14:43-0500 Body height 170.18 cm [facility] Work Phone: [facility] 05-26-2024 14:43-0500 Body mass index (BMI) [Ratio] 25.5 kg/m2 [facility] Work Phone: [facility] 05-26-2024 14:43-0500 Body temperature 98.3 [degF] [facility] Work Phone: [facility] 05-26-2024 14:43-0500 Body weight 74.1 kg [facility] Work Phone: [facility] 05-26-2024 14:43-0500 Diastolic blood pressure 60 mm[Hg] [facility] Work Phone: [facility] 05-26-2024 14:43-0500 Heart rate 72 /min Tasneem Stockezy PA-C Work Phone: [facility] 05-26-2024 14:43-0500 SaO2% (BldA) [Mass fraction] 100 % Tasneem [place] PA-C Work Phone: [facility] 05-26-2024 14:43-0500 Systolic blood pressure 120 mm[Hg] Tasneem [place] PA-C Work Phone: [facility] 04-29-2024 14:32-0500 Body mass index (BMI) [Ratio] 25.2 kg/m2 Tasneem [place] PA-C Work Phone: [facility] 04-29-2024 14:32-0500 Body weight 73.19 kg Tasneem [place] PA-C Work Phone: [facility] 04-29-2024 14:32-0500 Diastolic blood pressure 83 mm[Hg] Tasneem [place] PA-C Work Phone: [facility] 04-29-2024 14:32-0500 Heart rate 86 /min Tasneem [place] PA-C Work Phone: [facility] 04-29-2024 14:32-0500 SaO2% (BldA) [Mass fraction] 98 % Tasneem [place] PA-C Work Phone: [facility] 04-29-2024 14:32-0500 Systolic blood pressure 123 mm[Hg] Tasneem [place] PA-C Work Phone: [facility] 02-26-2023 15:20-0500 Body height 170.18 cm PA-C Tasneem Stockezy PA Work Phone: [facility] 02-26-2023 15:20-0500 Body mass index (BMI) [Ratio] 26.4 kg/m2 PA-C Tasneem Stockezy PA Work Phone: [facility] 02-26-2023 15:20-0500 Body temperature 99.6 [degF] PA-C Tasneem Stockezy PA Work Phone: [facility] 02-26-2023 15:20-0500 Body weight 76.65 kg PA-C Tasneem [place] PA Work Phone: [facility] 02-26-2023 15:20-0500 Diastolic blood pressure 76 mm[Hg] PA-C Tasneem Stockezy PA Work Phone: [facility] 02-26-2023 15:20-0500 Heart rate 76 /min PA-C Tasneem Stockezy PA Work Phone: [facility] 02-26-2023 15:20-0500 Respiratory rate 15 /min PA-C Tasneem [place] PA Work Phone: [facility] 02-26-2023 15:20-0500 SaO2% (BldA) [Mass fraction] 96 % PA-C Tasneem Stockezy PA Work Phone: [facility] 02-26-2023 15:20-0500 Systolic blood pressure 118 mm[Hg] PA-C Tasneem Stockezy PA Work Phone: [facility] 05-03-2022 08:21-0500 Body height 170.18 cm PA-C [employer] PA Work Phone: [facility] 05-03-2022 08:21-0500 Body mass index (BMI) [Ratio] 25.5 kg/m2 PA-C Tasneem Stockezy PA Work Phone: [facility] 05-03-2022 08:21-0500 Body weight 74.04 kg PA-C Tasneem Stockezy PA Work Phone: [facility] 03-14-2022 14:31-0500 Body mass index (BMI) [Ratio] 25.1 kg/m2 PA-C [employer] PA Work Phone: [facility] 03-14-2022 14:31-0500 Body temperature 97.3 [degF] PA-C [employer] PA Work Phone: [facility] 03-14-2022 14:31-0500 Body weight 74.95 kg PA-C [employer] PA Work Phone: [facility] 03-14-2022 14:31-0500 Diastolic blood pressure 80 mm[Hg] PA-C [employer] PA Work Phone: [facility] 03-14-2022 14:31-0500 Heart rate 78 /min PA-C [employer] PA Work Phone: [facility] 03-14-2022 14:31-0500 Respiratory rate 18 /min PA-C [employer] PA Work Phone: [facility] 03-14-2022 14:31-0500 SaO2% (BldA) [Mass fraction] 98 % PA-C [employer] PA Work Phone: [facility] 03-14-2022 14:31-0500 Systolic blood pressure 123 mm[Hg] PA-C [employer] PA Work Phone: [facility] 02-28-2017 10:16-0500 BMI (Body Mass Index) 23.7 kg/m2 Edgar Medrano MD [facility] Work Phone: 02-28-2017 10:16-0500 Body Temperature 97.4 [degF] Edgar Medrano MD [facility] Work Phone: 02-28-2017 10:16-0500 BP Diastolic 69 mm[Hg] Edgar Medrano MD [facility] Work Phone: 02-28-2017 10:16-0500 BP Systolic 110 mm[Hg] Edgar Medrano MD [facility] Work Phone: 02-28-2017 10:16-0500 BSA (Body Surface Area) 1.82 m2 Edgar Medrano MD [facility] Work Phone: 02-28-2017 10:16-0500 Height 171.45 cm Edgar Medrano MD [facility] Work Phone: 02-28-2017 10:16-0500 Pulse (Heart Rate) 72 /min Edgar Medrano MD [facility] Work Phone: 02-28-2017 10:16-0500 Respiratory Rate 18 /min Edgar Medrano MD [facility] Work Phone: 02-28-2017 10:16-0500 Weight 69.67 kg Edgar Medrano MD [facility] Work Phone: 01-02-2017 15:13-0400 BMI (Body Mass Index) 23.14 kg/m2 Warren Smith MD [facility] Work Phone: 01-02-2017 15:13-0400 BP Diastolic 74 mm[Hg] Warren Smith MD [facility] Work Phone: 01-02-2017 15:13-0400 BP Systolic 116 mm[Hg] Warren Smith MD [facility] Work Phone: 01-02-2017 15:13-0400 Height 171.45 cm Warren Smith MD [facility] Work Phone: 01-02-2017 15:13-0400 Pulse (Heart Rate) 79 /min Warren Smith MD [facility] Work Phone: 01-02-2017 15:13-0400 Respiratory Rate 18 /min Warren Smith MD [facility] Work Phone: 01-02-2017 15:13-0400 Weight 68.04 kg Warren Smith MD [facility] Work Phone: Encounters Encounter Date Encounter Type Care Provider Facility Start: 07-16-2024 ambulatory [facility] Facility :[facility] Start: 07-16-2024 Registered Recurring [facility] PA-C -Physical Therapy Work Phone: Start: 07-14-2024 End: 07-14-2024 ambulatory [facility] PA-C Work Phone: [facility] Work Phone: Start: 07-14-2024 End: 07-14-[address] He Lawton MD -Laboratory Work Phone: Start: 07-14-2024 End: 07-14-2024 ambulatory [place] Facility:[facility] Start: 06-23-2024 Registered Recurring Tasneem [place] PA-C -Physical Therapy Work Phone: Start: 06-13-2024 End: 06-13-2024 ambulatory [facility] PA-C Work Phone: [facility] Work Phone: Start: 06-13-2024 End: 06-13-2024 Patient encounter procedure Tasneem [place] PA-C -Outpatient Breast Imaging Work Phone: Start: 06-13-2024 End: 06-13-2024 ambulatory [facility] Facility:[facility] Start: 05-26-2024 End: 05-26-2024 Patient encounter procedure Sina ESCAMILL[facility] Work Phone: Start: 05-26-2024 End: 05-26-2024 ambulatory Sina ESCAMILLA Facility:[facility] Start: 05-26-2024 End: 05-26-2024 ambulatory [facility] Facility:[facility] Start: 04-29-2024 End: 04-29-2024 ambulatory [facility] Facility:[facility] Start: 04-29-2024 End: 04-29-[address] He Lawton MD -[facility] Work Phone: Start: 03-21-2024 End: 03-21-2024 Patient encounter procedure Tasneem [place] PA-C -Laboratory Work Phone: Start: 03-21-2024 End: 03-21-2024 ambulatory [facility] Facility:[facility] Start: 01-28-2024 End: 01-28-2024 Emergency department patient visit [facility] Facility:[facility] Start: 08-06-2023 End: 08-06-[address] [facility] Work Phone: Start: 08-06-2023 End: 08-06-[address] [facility] Work Phone: Start: 05-10-2023 End: 05-10-2023 ambulatory [facility] Start: 03-01-2023 End: 03-01-2023 ambulatory PA-C Tasneem [place] PA Work Phone: [facility] Work Phone: Start: 03-01-2023 End: 03-01-2023 Patient encounter procedure PA-C Tasneem [place] PA Work Phone: [facility], [facility] Work Phone: Start: 02-26-2023 End: 02-26-2023 Patient encounter procedure PA-C Tasneem [place] PA Work Phone: [facility] Work Phone: Start: 02-22-2023 End: 02-22-2023 ambulatory PA-C Tasneem [place] PA Work Phone: [facility] Work Phone: Start: 02-22-2023 End: 02-22-2023 Patient encounter procedure PA-C Tasneem Quevedo PA Work Phone: [facility] Work Phone: Start: 09-26-2022 End: 09-26-2022 ambulatory [facility] Start: 09-14-2022 End: 09-14-2022 ambulatory [facility] Start: 09-07-2022 End: 09-07-2022 ambulatory [facility] Start: 06-12-2022 End: 06-13-[address] ANDREA DOZIER MD Facility:A Start: 06-12-2022 End: 06-12-[address] ANDREA DOZIER MD [facility] Start: 05-15-2022 End: 05-15-2022 ambulatory PA-C Tasneem Quevedo PA Work Phone: [facility] Work Phone: Start: 05-15-2022 End: 05-15-2022 Patient encounter procedure PA-C Tasneem Quevedo PA Work Phone: [facility] Start: 05-03-2022 End: 05-03-2022 Patient encounter procedure PA-C Tasneem Quevedo PA Work Phone: [facility] Start: 04-13-2022 ambulatory ALEJANDRINA ALBERTO Facilit y:[facility] Start: 03-29-2022 ambulatory ALEJANDRINA ALBERTO Facilit y:[facility] Start: 03-29-2022 End: 03-30-2022 Patient encounter procedure Alejandrina Alberto PsyD Work Phone: [facility] Comment on above: Concussion with loss of consciousness of 30 minutes or less, subsequent encounter (Primary Dx) Start: 03-14-2022 End: 03-14-2022 Patient encounter procedure PA-C Tasneem Quevedo PA Work Phone: [facility] Endocrinology Start: 01-11-2022 ambulatory [facility] Ambulatory Start: 12-07-2021 End: 12-07-[address] [facility] Work Phone: Start: 12-07-2021 End: 12-07-[address] [facility]-Ultrasound, [facility] Start: 09-07-2021 ambulatory TASNEEM SAE Facility :[facility] Start: 08-24-2021 ambulatory ALEJANDRINA ALBERTO Facility: [facility] Start: 02-22-2017 End: 02-22-2017 ambulatory TUNG Merritt (HIST) LAWRENCE [facility] Rmairez Procedures Date Procedure Procedure Detail Performing Clinician Start: 06-13-2024 Ultrasonography of breast Tasneemmyah Quevedo PA-C Work Phone: Start: 06-13-2024 Ultrasonography of breast Tasneem ESCAMILLA-C Work Phone: Start: 06-13-2024 Bilateral mammography K miya ESCAMILLA-C Work Phone: Start: 05-26-2024 Urine culture Tasneem Quevedo PA-C Work Phone: Start: 03-01-2023 US scan of thyroid PA-C Tasneem ESCAMILLA Work Phone: Start: 12-07-2021 US scan of thyroid Arthroscopy of knee DR ANDREA DOZIER MD Comment on above: Right knee [address] ANDREA Keene Comment on above: wisdom teeth 2013 H/O: surgery Hx of removal of cyst Comment on above: left posterior neck History of operative procedure on knee Hx of knee surgery Comment on above: Right knee 2009 Ovarian cyst sample (specimen) DR ANDREA DOZIER MD Plan of Treatment Date Care Activity Detail Author Start: 06-13-2024 Digital breast tomosynthesis bilateral BREAST TOMOSYNTHESIS [facility] Start: 04-13-2022 End: 04-13-2022 Patient encounter procedure 04/13/2022 Office Visit Psychologist/Rehabilita Alejandrina [address] Viviana Gilmore [address] [place] [address] Rehabilitation Psychology [facility] Start: 12-15-2021 Influenza vaccination INFLUENZA VACCINE (#1) [facility] Start: 08-28-2017 End: 03-18-2017 Us exam, breast(s) US Breast(s) [facility] krysten Work Phone: Start: 02-28-2017 End: 03-18-2017 Follow Up Appt Other Follow Up Appt Other [facility] Work Phone: Start: 02-07-2017 End: 02-07-2017 Appointment Appointment [facility] Work Phone: Start: 01-02-2017 End: 01-02-2017 Appointment Appointment [facility] Work Phone: Start: 01-02-2017 End: 01-17-2017 Plastic Surgery Referral Plastic Surgery Referral Edgar Medrano MD, [facility], [address], [address], [place], [address] [facility] Work Phone: Start: 01-02-2017 End: 01-02-2017 Plastic Surgery Referral Plastic Surgery Referral Edgar Medrano MD, [facility], [address], [address], [place], [address] [facility] Work Phone: Start: 11-22-2003 Screening for malignant neoplasm of cervix CERVICAL CANCER SCREENING DISCUSSION [facility] Start: 2001 Third diphtheria, tetanus and acellular pertussis (DTaP) vaccination TDAP (ADULT) [facility] Start: 1997 HIV screening HIV SCREENING DISCUSSION [facility] Start: 05-24-1983 COVID-19 VACCINE (#1) COVID-19 VACCINE (#1) [facility] Start: 1982 Hepatitis C screening HEPATITIS C VIRUS SCREENING [facility] Start: 1982 Tetanus vaccination TETANUS [facility] Ferritin [Mass/volum e] in Serum or Plasma [facility] T4 free measurement [facility] T4 free measurement [facility] Thyroid stimulating hormone measurement [facility] Thyroid stimulating hormone measurement [facility] US Thyroid gland [facility] Payers Date Payer Category Payer Self-pay [id number] 2018 Medicaid [facility] MED[facility] [employer] MEDICA[facility] PLAN [id number] 2018-Present [address] [place] [address] [id number] 2016 Private Health Insurance [id number] 2016 Unknown [id number] 1982 Unknown [id number]. 594 1982 Unknown [id number] 2.840.1.198749.3.579.2. 594 1982 Unknown [id number] .840.1.975481.3.579.2. 594 1982 Unknown [id number] .0.1.669494.3.579.2. 594 1982 Unknown [id number] .0.1.482009.3.579.2. 594 1982 Unknown [id number] 06.01.830.1.638703.3.579.2. 627 1982 Unknown [id number] .0.1.136970.3.579.2. 651 1982 Unknown [id number] 06.01.830.1.039133.3.579.2. 651 1982 Unknown [id number] .840.1.998845.3.579.2. 651 1982 Unknown [id number] 840.1.747763.3.579.2. 651 Unknown [id number] 840.1.906308.3.579.2. 462 Unknown [id number] 840.1.962553.3.579.2. 462 Unknown [id number] .840.1.500799.3.579.2. 462 Unknown [id number] 840.1.061693.3.579.2. 462 Unknown [id number] 2.840.1.894437.3.579.2. 462 Unknown [id number] .840.1.057513.3.579.2. 462 Unknown [id number] 2.16.840.1.845552.3.579.2. 462 Unknown [id number] 2.16.840.1.144046.3.579.2. 462 Social History Date Type Detail Facility Start: 03-17-2020 End: 02-26-2023 Tobacco smoking status NHIS Unknown if ever smoked [facility] Start: 1980 Sex Assigned At Female [facility] [place] Start: 09-07-2021 End: 01-28-2024 Tobacco smoking status NHIS Never smoked tobacco [facility] Start: 09-07-2021 Tobacco use and exposure Smokeless tobacco non-user [facility] Start: 09-07-2021 Alcohol intake Ex-drinker (finding) [facility] Start: 1980 Sex Assigned At Not on file [facility] Start: 03-19-2022 End: 03-29-2022 Exposure to SARS-CoV-2 (event) Unable to assess [facility] Sex Assigned At Sex [facility] Start: 06-27-2024 End: 07-17-2024 Sex Female (finding) [facility] Clinical Notes 03-29-2022 to 06-13-2024 Note Date & Type Note Facility 06-13-2024 Radiology Diagnostic study note [facility] Imaging Services [address] [place], [place] [address] Breast Limited Unilateral MR#: [id number] Acct: [id number] Name: ROSI PINA Rep #: [id number] : 1980 F 43 From: Caroline Ramsey MD PCP: Tasneem Quevedo PA-C Status: HOMAR SANTOS Study:Breast Limited Unilateral Date of Exam: 06/13/24 Exam# [id number] Ordering Dr: Dave Quevedo PA-C PROCEDURE: DIAG MAMM W/CAD, BILAT; BREAST LIMITED UNILATERAL; BILAT BRST RICKY STAND ALONE REASON FOR EXAM: 43-year-old female presents with palpable concern in the left breast. No familyhistory of breast cancer. TECHNIQUE: Bilateral diagnostic digital breast tomosynthesis with 2D and 3D images. Computer aided detection. Also, targeted bilateral breast ultrasound was performed. COMPARISON: 12/12/2016 FINDINGS: MAMMOGRAM: There are scattered areas of fibroglandular density. There is a triangle skin marker indicating the area of palpable concern in the upper-outer left breast. Underlying the skin marker is an obscured mass. There is an asymmetry in the superior right breast at posterior depth. Also there is an asymmetry in the central right breast at posterior depth. These asymmetries partially efface with the spot compression views and may represent benign overlapping fibroglandular tissues. LEFT BREAST ULTRASOUND: Targeted left breast ultrasound performed of the area ofpalpable concern at 2 o'clock 4 cm from the nipple demonstrates 3 adjacent cysts, the largest measures 1.1 x 1.1 x 1.1 cm. Otherwise, there are no suspicious findings in the left breast. RIGHT BREAST ULTRASOUND: Targeted right breast ultrasound performed of the superior right breast demonstrates no definite sonographic correlate for the mammographic findings seen in the superior and central right breast at posterior depth. Otherwise there are 2 normal-appearing lymph nodes visualized at 9 o'clock 8 cm from the nipple measuring 1.1 x 1.2 x 0.4 cm and another lymph node at 10 o'clock 5 cm from the nipple measuring 1.0 x 1.2 x 0.3 cm. US/Breast Limited Unilateral IMPRESSION: The patient's palpable area of concern in the left breast corresponds to benign cysts. Otherwise, there are no suspicious findings in the left breast. The asymmetries in the superior and central right breast at posterior depth without sonographic correlates are probably benign. Recommend short interval six-month follow-up diagnostic mammogram of the right breast for further evaluation. BI-RADS 3: PROBABLY BENIGN. Follow-up code: 6 Month Follow-up Reading Location: BEE CC: BLAIR Quevedo ~ Web Development Instructor: Signed [facility] 06-13-2024 Radiology Diagnostic study note [facility] Imaging Services [address] [place], [place] [id number] Breast Limited Unilateral MR#: [id number] Acct: [id number] Name: ROSI PINA Rep #: [id number] : 1980 F 43 From: Caroline Ramsey MD PCP: Tasneem Quevedo PA-C Status: HOMAR SANTOS Study:Breast Limited Unilateral Date of Exam: 06/13/24 Exam# [id number] Ordering Dr: Dave Quevedo PA-C PROCEDURE: DIAG MAMM W/CAD, BILAT; BREAST LIMITED UNILATERAL; BILAT BRST RICKY STAND ALONE REASON FOR EXAM: 43-year-old female presents with palpable concern in the left breast. No familyhistory of breast cancer. TECHNIQUE: Bilateral diagnostic digital breast tomosynthesis with 2D and 3D images. Computer aided detection. Also, targeted bilateral breast ultrasound was performed. COMPARISON: 12/12/2016 FINDINGS: MAMMOGRAM: There are scattered areas of fibroglandular density. There is a triangle skin marker indicating the area of palpable concern in the upper-outer left breast. Underlying the skin marker is an obscured mass. There is an asymmetry in the superior right breast at posterior depth. Also there is an asymmetry in the central right breast at posterior depth. These asymmetries partially efface with the spot compression views and may represent benign overlapping fibroglandular tissues. LEFT BREAST ULTRASOUND: Targeted left breast ultrasound performed of the area ofpalpable concern at 2 o'clock 4 cm from the nipple demonstrates 3 adjacent cysts, the largest measures 1.1 x 1.1 x 1.1 cm. Otherwise, there are no suspicious findings in the left breast. RIGHT BREAST ULTRASOUND: Targeted right breast ultrasound performed of the superior right breast demonstrates no definite sonographic correlate for the mammographic findings seen in the superior and central right breast at posterior depth. Otherwise there are 2 normal-appearing lymph nodes visualized at 9 o'clock 8 cm from the nipple measuring 1.1 x 1.2 x 0.4 cm and another lymph node at 10 o'clock 5 cm from the nipple measuring 1.0 x 1.2 x 0.3 cm. US/Breast Limited Unilateral IMPRESSION: The patient's palpable area of concern in the left breast corresponds to benign cysts. Otherwise, there are no suspicious findings in the left breast. The asymmetries in the superior and central right breast at posterior depth without sonographic correlates are probably benign. Recommend short interval six-month follow-up diagnostic mammogram of the right breast for further evaluation. BI-RADS 3: PROBABLY BENIGN. Follow-up code: 6 Month Follow-up Reading Location: [id number] CC: BLAIR Quevedo ~ Web Development Instructor: Signed [facility] 04-29-2024 Evaluation note Diagnosis Onset Date Resolution Christoph's thyroiditis chronic J anuary 2024 2:23pm Urinary tract infection noneactive F ebruary 2024 2:14pm [facility] Work Phone: 1(507) 664-778112-14-2022 History of Present illness Narrative* BRYANT Johnson - 03/29/2022 1:30 PM EST Neuropsychological Assessment Note Date: 29 MAR 2022 Time In: 1348 Time out: 1455 (1:07) Time in: 1502 Time out: 1605 (1:03) TIme in - 1609 Time out - 1638 (0:29) Testing time = 2 hrs 39 mins The patient met with the inventory control/shipping receiving under the supervision of the licensed clinical psychologist.The psychologist administered select tests. Tests were selected by the psychologist and contact was made with the inventory control/shipping receiving throughout the day to monitor progress and address questions. Tests administered included the following: Select subtests from WAIS-IV, Select subtests from WMS-IV, Select subtests from DKEFS, Salvador Line Test, COWA, CPT-III, CVLT-II, Green's WMT, Manager Compensation Strength and Mckenzie-Making Test and TOPF. Battery to be scored and results will be provided to the neuropsychologist; report to follow. Espinoza Fan Tying Machine Operator documented [facility] History of Present illness Narrative* Alejandrina Alberto PsyD - 03/29/2022 12:30 PM EST Rehabilitation Psychology Therapy Note Patient: Rosi Pina Date of Service: 03/29/2022 LOS: NCNC Time in: 12:50 PM Time out: 1:50 PM Summary: Met with the patient for clinical interview. Following intake the patient completed neuropsychological assessment. A comprehensive report will follow. Alejandrina Alberto PsyD ABPP (CN & RP) Board Certified Clinical Neuropsychologist Board Certified Rehabilitation Psychologist [facility] No data available for this section [facility] Evaluation noteNo assessment information available [facility] Work Phone: Evaluation note* Diagnosis Concussion with loss of consciousness of 30 minutes or less, subsequent encounter- Primary documented in this encounter [facility] Evaluation note* Diagnosis Concussion with loss of consciousness of 30 minutes or less, subsequent encounter- Primary documented in this encounter [facility] Evaluation note* Diagnosis Onset Date Resolution Status Christoph's thyroiditis acut e Nodular goiter acute DDD (degenerative disc disease), lumbosacral acute Herniated nucleus pulposus, L4-[address] [facility] Work Phone: Evaluation note* Diagnosis Onset Date Resolution Status Christoph's thyroiditis adaptive physical educator arturo Nodular goiter chronic [facility] Work Phone: Hospital Discharge instructions No data available for this section [facility] Progress note No data available for this section [facility] Reason for referral (narrative)No reason for referral information [place] Work Phone: Summary Purpose Family History No Family History Records Found Relationship Condition Age at Onset Recorded Date/T reinaldo father Hypertension Unknown Malignant neoplasm of prostate Unknown mother Hypertension Unknown Relationship Condition Age at Onset Recorded Date/T reinaldo Not Specified Anxiety Unknown Autoimmune disorder Unknown Depression Unknown Complication of anesthesia Unknown father Hypertension Unknown Malignant neoplasm of prostate Unknown mother Hypertension Unknown Advance Directives No Advanced Directives Records Found Advance Directive Response Recorded Date/ Time Living Will Yes February 22 2:46pm Power of Architecture Analyst Yes February 23, 2020 2:46pm Advance Directive Response Recorded Date/ Time Living Will Yes February 22 1:46pm Power of Architecture Analyst Yes February 23, 2020 1:46pm Advance Directive Response Recorded Date/ Time Living Will No September 05, 2022 8 :17am Power of Architecture Analyst No September 05, 2022 8:17am Advance Directive Response Recorded Date/ Time Living Will No September 05, 2022 9 :17am Power of Architecture Analyst No September 05, 2022 9:17am Chief Complaint and Reason for Visit Chief Complaint Autoimmune thyroidit is Chief Complaint Positive Thyroid Ant ibodies LUMBAR SPINE Reason for Visit Christoph's thyroidi tis Nodular goiter DDD (degenerative disc disease), lumbosacral Herniated nucleus pulposus, L4-5 right Chief Complaint E ORDERS 1 Y FU, RS 0717 Reason for Visit Christoph's thyroidi tis Nodular goiter Chief Complaint E ORDERS 1 Y FU, RS 10/30 NON TOXIC GOITER, UNSPECIFIED Reason for Visit Christoph's thyroidi tis Nodular goiter Chief Complaint Admit Date 14 M FU April 29, 2024 2 :23pm Urinary tract infection May 26, 2 025 2:14pm LUMP ON LEFT BREAST June 13, 2024 2:25pm BACK PAIN. RX HERE June 23, 2024 3:3 0pm Reason for Visit Admit Date Christoph's thyroiditis April 29 2:23pm Urinary tract infection May 26, 2 025 2:14pm Chief Complaint Admit Date 14 M FU April 29, 2024 2 :23pm Urinary tract infection May 26, 2 025 2:14pm LUMP ON LEFT BREAST June 13, 2024 2:25pm BACK PAIN. RX HERE July 16, 2024 10:3 0am Additional Source Comments INFORMATION SOURCE (unrecogn ized section and content) DATE CREATED AUTHOR 01/24/2019 [facility] DATE CREATED AUTHOR AUTHOR'S ORGANIZ ATION 09/17/2019 [facility] DATE CREATED AUTHOR AUTHOR'S ORGANIZ ATION 01/16/2022 [facility] DATE CREATED AUTHOR AUTHOR'S ORGANIZ ATION 04/24/2022 [facility] DATE CREATED AUTHOR AUTHOR'S ORGANIZ ATION 06/21/2022 [facility] ([place]) DATE CREATED AUTHOR AUTHOR'S ORGANIZ ATION 05/13/2023 [facility] DATE CREATED AUTHOR AUTHOR'S ORGANIZ ATION 05/14/2023 Archie Chandlerjorge [facility] DATE CREATED AUTHOR AUTHOR'S ORGANIZ ATION 07/30/2024 [facility] DATE CREATED AUTHOR AUTHOR'S ORGANIZ ATION 08/07/2024 [facility] Goals (unrecognized section and content) Goals may be documented in a n alternate sectionGoals may be documented in an alternate section No data available for this sectionGoals may be documented in an alternate sectionGoals may be documented in an alternate sectionGoals may be documented in an alternate sectionGoals may be documented in an alternate sectionGoals may be documented in an alternate section Reason for Visit (unrecogniz ed section and content) Reason Comments Neuropsychological Testing Specialty Diagnoses / Procedures Referred By Neda richards Referred To Contact Psychologist/Rehabili tation Diagnoses Postconcussion syndrome Mild cognitive impairment [facility] [address] Viviana [address]more [address] [place] [address] [facility] [address] Viviana Gilmore [address] [place] [address] Referral ID Status Reason Start Date Expiration Date Visits Re quested Visits Authorized [id number] Closed 09/19/2021 10/14/2022 1 1 Care Teams (unrecognized sec tion and content) Housing Project Manager Relationship Specialty Start Date End Date Tasneem Quevedo PA-C [address] [place] [id number] PCP - General Family Medicine 09/07/21 Housing Project Manager Relationship Specialty Start Date End Date Tsaneem Quevedo PA-C [address] [place] [id number] PCP - General Family Medicine 09/07/21 Team Status: Active Member Role Status Dates Tasneem ESCAMILLA PA-C Family Provider Active Tasneem ESCAMILLA PA-C Primary Care Provider Active Team Status: Inactive Member Role Status Dates Tasneem [place] PA, PA-C Primary Care Provider, Referri ng Provider Active Dr. He Lawton MD Attending Provider Active Team Status: Inactive Member Role Status Dates Tasneem Quevedo PA, PA-C Primary Care Provider, Referri ng Provider Active Dr. Brad Beck DO Attending Provider Active Team Status: Inactive Member Role Status Dates Tasneem Quevedo PA, PA-C Primary Care Provider Active Dr. He Lawton MD Attending Provider Active Team Status: Inactive Member Role Status Dates Tasneem Quevedo PA, PA-C Primary Care Provider Active Dr. He Lawton MD Attending Provider, Referring Provi mavis Active Team Status: Inactive Member Role Status Dates Tasneem Quevedo PA, PA-C Primary Care Provider, Attendi ng Provider Active Dr. He Lawton MD Referring Provider Active Team Status: Active Member Role Status Dates Tasneem Quevedo PA, PA-C Primary Care Provider Active Team Status: Inactive Member Role Status Dates Tasneem Quevedo PA, PA-C Primary Care Provider Active Start: March 21, 2024 End: March 21, 2024 Tasneem [place] PA, PA-C Attending Provider Active Start: March 21, 2024 End: March 21, 2024 Tasneem [place] PA, PA-C Referring Provider Active Start: March 21, 2024 End: March 21, 2024 Team Status: Inactive Member Role Status Redd Quevedo PA, PA-C Primary Care Provider Active Start: April 29, 2024 End: April 29, 2024 Tasneem Quevedo PA, PA-C Referring Provider Active Start: April 29, 2024 End: April 29, 2024 Dr. He Lawton MD Attending Provider Active Sta rt: April 29, 2024 End: April 29, 2024 Team Status: Inactive Member Role Status Dates Tasneem Quevedo PA, PA-C Primary Care Provider Active Start: May 26, 2024 End: May 26, 2024 Tasneem [place] PA, PA-C Referring Provider Active Start: May 26, 2024 End: May 26, 2024 Sina Argueta PA, PA Attending Provider Active Start: May 26, 2024 End: May 26, 2024 Team Status: Inactive Member Role Status Dates Tasneem Quevedo PA, PA-C Primary Care Provider Active Start: May 26, 2024 End: May 26, 2024 Tasneem [place] PA, PA-C Attending Provider Active Start: May 26, 2024 End: May 26, 2024 Team Status: Inactive Member Role Status Dates Tasneem Quevedo PA, PA-C Primary Care Provider Active Start: June 13, 2024 End: June 13, 2024 Tasneem Quevedo PA, PA-C Attending Provider Active Start: June 13, 2024 End: June 13, 2024 Tasneem Quevedo PA, PA-C Referring Provider Active Start: June 13, 2024 End: June 13, 2024 Team Status: Active Member Role Status Dates Tasneem Quevedo PA, PA-C Primary Care Provider Active Start: June 23, 2024 Tasneem Quevedo PA, PA-C Attending Provider Active Start: June 23, 2024 Tasneem Quevedo PA, PA-C Referring Provider Active Start: June 23, 2024 Team Status: Inactive Member Role Status Dates Tasneem Quevedo PA, PA-C Primary Care Provider Active Start: July 14, 2024 End: July 14, 2024 Dr. He Lawton MD Attending Provider Active Sta rt: July 14, 2024 End: July 14, 2024 Dr. He Lawton MD Referring Provider Active Sta rt: July 14, 2024 End: July 14, 2024 Team Status: Active Member Role Status Dates Tasneem Quevedo PA, PA-C Primary Care Provider Active Start: July 16, 2024 Tasneem Quevedo PA, PA-C Attending Provider Active Start: July 16, 2024 Tasneem Quevedo PA, PA-C Referring Provider Active Start: July 16, 2024 Care Team (unrecognized sect ion and content) Care Team Personnel Name: TASNEEM QUEVEDO FRANCINE-Audra Member Role: Primary Care Physician Address: Address: [address] [place] [address] [address] Care Team Related Persons Name: YOVANI SONNY Address: Home [phone] FOR RECORDS PERTAINING TO PATIENTS WHO ARE OR HAVE BEEN ENROLLED IN A CHEMICAL DEPENDENCY/SUBSTANCEABUSE PROGRAM, SOME INFORMATION MAY BE OMITTED. This clinical summary was aggregated from multiple sources. Caution should be exercised in using it in the provision of clinical care. This summary normalizes information from multiple sources, and as a consequence, information in this document may materially change the coding, format and clinical context of patient data. In addition, data may be omitted in some cases. CLINICAL DECISIONS SHOULD BE BASED ON THE PRIMARY CLINICAL RECORDS. [facility]. provides no warranty or guarantee of the accuracy or completeness of information in this document.
[2024-09-28] MEDS: 0.9% Normal Saline (1000mL) 1,000 ML 1000 ML IV (12:56)
[2024-09-28 12:58] LABS: Absolute Neutrophil Count 3.9 X10^3/uL (2.0-7.7); Basophil# 0.06 X10^3/uL; Eosinophil# 0.08 X10^3/uL; Eosinophils% 1.4 % (0-5); Hematocrit 35.8 % (37-47); Hemoglobin 12.1 g/dL (12.0-15.0); Lymphocyte % 22.6 % (19-41); Mean Corp Hgb Conc 33.8 g/dL (32-36); Mean Corpuscular Hgb 26.7 pg (27.0-32.0); Mean Corpuscular Volume 78.9 fL (81-99); Mean Platelet Vol. 9.7 fl (6.2-12.0); Monocyte# 0.42 X10^3/uL; Monocyte% 7.3 % (0-10); NRBC Flagged by Analyzer 0 % (0-5); Neutrophil # 3.87 X10^3/uL (2.7-7.7); Neutrophil % 67.5 % (47-70); Platelet Count 291 K/mm3 (150-450); RBC Distribution Width SD 37.1 fl (35.1-43.9); Red Blood Count 4.54 M/mm3 (4.2-5.4); White Blood Count 5.7 K/mm3 (4.4-11.0)
[2024-09-28 13:08] LABS: Internal QC Validated? YES +Cl - CLEAR BKGD; Pregnancy, Serum, hCG Quali. NEGATIVE Negative
[2024-09-28 13:55] LABS: BUN 11 mg/dL (4-19); BUN/Creat Ratio 15.3 RATIO (10-20); Calcium,Total 9.2 mg/dL (7.6-11.0); Carbon Dioxide 17.9 mmol/L (21.0-32.0); Chloride 102 mmol/L (98-108); EST Glomerular Filtration Rate 111 (>60); Estimated Creatinine Clearance 113.27 ml/min (50-250); Glucose 119 mg/dL (70-99); Potassium 3.3 mmol/L (3.3-5.1); Sodium Level 135 mmol/L (133-145); Troponin T High Sensitivity 7 ng/L (<=14)
[2024-09-28 13:56] LABS: Anion Gap 15 (5-15)
[2024-09-28 14:30] VITALS: BP 124/76; BP 129/76; BP 136/85; PULSE 76; PULSE 77; PULSE 82; PULSE 92; RESP 19; O2SAT 100
[2024-09-28 15:02] LABS: Troponin T High Sens 2 HR 9 ng/L (<=14)
[2024-09-28 15:38] VITALS: BP 122/70; PULSE 74; RESP 19; TEMP 36.8; O2SAT 100
== END 2024-09-28 15:40 | disposition home or self-care (01) ==
PROVIDERS: Emergency Provider Emergency Medicine; PCP Family Medicine; Visit Provider Emergency Medicine
DX: R42 Dizziness and giddiness (principal); F41.9 Anxiety disorder, unspecified; R11.0 Nausea; Z79.890 Hormone replacement therapy; E06.3 Autoimmune thyroiditis; R06.00 Dyspnea, unspecified; R00.2 Palpitations
CPT/HCPCS: 71046; 80048; 84484; 84703; 85025; 93005; 96360; 99285; A4216

== ENCOUNTER → 2024-10-21 | Outpatient (CLI) | payer MEDICAID, SELFPAY | END | disposition home or self-care (01) | PROVIDERS: PCP Family Medicine; Referring Provider Internal Medicine Endocrinology, Diabetes & Metabolism; Visit Provider Internal Medicine Endocrinology, Diabetes & Metabolism | DX: E06.3 Autoimmune thyroiditis (principal) | CPT/HCPCS: 36415; 84439; 84443 ==

== ENCOUNTER → 2025-02-18 | Outpatient (CLI) | payer MEDICAID, SELFPAY | END | disposition home or self-care (01) | LOC: LAB 14:31 | PROVIDERS: PCP Family Medicine; Referring Provider Internal Medicine Endocrinology, Diabetes & Metabolism; Visit Provider Internal Medicine Endocrinology, Diabetes & Metabolism | DX: E06.3 Autoimmune thyroiditis (principal) | CPT/HCPCS: 36415; 84439; 84443 ==